=== PATIENT | female | born 1945 | race Caucasian/White ===

== ENCOUNTER 2020-03-25 08:46 | Outpatient (REF) | payer MEDICARE, SELFPAY | END 2020-03-25 08:47 | disposition home or self-care (01) | LOC: HO.HMGCLDS 08:46 | PROVIDERS: PCP Internal Medicine; Visit Provider Internal Medicine | DX: Z20.828 Contact with and (suspected) exposure to other viral communicable diseases (principal) | CPT/HCPCS: C9803; U0003 ==

== ENCOUNTER 2020-04-01 09:25 | Outpatient (REF) | payer MEDICARE, SELFPAY ==
--- NOTE | 2020-04-01 09:30 | MM_ITS ---
EXAMINATION: MM SCREENING DIGITAL BREAST TOMOSYNTHESIS, BILATERAL CLINICAL INFORMATION: Screening. Asymptomatic. The lifetime risk of breast cancer based on the Tyrer-Cuzick Model is 1.3%. COMPARISON: Mammography: March 09, 2019 and studies dating back to July 27, 2012 TECHNIQUE: Digital breast tomosynthesis is performed in both the craniocaudal and mediolateral oblique views along with computer-aided detection (CAD). Synthesized 2D images are generated from the tomosynthesis. FINDINGS: There are scattered areas of fibroglandular density (ACR BI-RADS breast composition Category b). There are no significant masses, abnormal calcifications, or other abnormalities. MM/MM tomosynthesis screening BI IMPRESSION: There are no significant changes from prior study. ASSESSMENT: BI-RADS 1: Negative RECOMMENDATION: Routine annual mammography screening. This patient's information was entered into a reminder system with a target due date for their next mammogram.
== END 2020-04-01 09:26 | disposition home or self-care (01) ==
LOC: HO.MAMMO 09:25
PROVIDERS: Visit Provider Internal Medicine Endocrinology, Diabetes & Metabolism
DX: Z12.31 Encounter for screening mammogram for malignant neoplasm of breast (principal)
CPT/HCPCS: 77063; 77067

== ENCOUNTER 2020-04-02 09:41 | Outpatient (REF) | payer MEDICARE, SELFPAY ==
--- NOTE | 2020-04-02 09:48 | MM_ITS ---
EXAMINATION: BONE DENSITOMETRY CLINICAL INDICATION: Age-related osteoporosis without current pathological fracture. COMPARISON: Previous BD dated 03/01/2019 and baseline BD dated 04/30/2009. This is the patient's baseline examination for the left forearm radius 33%. TECHNIQUE: Using a [employer] DXA System (software version: 13.1) manufactured by [employer], dual-energy x-ray absorptiometry was performed of the lumbar spine, left hip, and left forearm radius 33%. The images are of good technical quality. Summary results are attached. FINDINGS: AP SPINE L2-L3 (excluding L1 and L4): The data of L1-L4 has been changed to exclude the L1 and L4 vertebral bodies, because degenerative change at these levels may cause overestimation of lumbar spine density. Current: BMD 0.938 g/cm2, Z-score -0.5, T-score -2.2, osteopenia, 2.3% increase from previous, 9.3% increase from baseline (<5% change is not significant). Prior: BMD 0.917 g/cm2. Baseline: BMD 0.858 g/cm2. LEFT FEMUR, NECK: Current: BMD 0.784 g/cm2, Z-score 0.1, T-score -1.8, osteopenia. Prior: BMD 0.758 g/cm2. Baseline: BMD 0.675 g/cm2. LEFT FEMUR, TOTAL: Current: BMD 0.854 g/cm2, Z-score 0.5, T-score -1.2, osteopenia, 0.9% increase from previous, 9.3% increase from baseline (<5% change is not significant). Prior: BMD 0.846 g/cm2. Baseline: BMD 0.781 g/cm2. LEFT FOREARM RADIUS 33%: BMD 0.535 g/cm2, Z-score -1.5, T-score -3.9, osteoporosis. IDENTIFIED RISK FACTORS: Early menopause, secondary osteoporosis, hysterectomy, bilateral oophorectomy, history of fracture (adult), osteoporosis. HISTORY OF FRACTURE: Other. MEDICATIONS: Calcium supplements or multivitamin, vitamin D, bisphosphonates. MM/XR DEXA appendicular skeleton IMPRESSION: 1. DIAGNOSIS: Osteoporosis based on the lowest T-score value of -3.9 in the forearm radius 33% applying World Health Organization criteria. 2. 10-YEAR FRACTURE RISK PREDICTION, FRAX: Major osteoporotic fracture (clinical spine, forearm, hip or shoulder) 20.5%. Hip fracture 7.2%. 3. Treatment Recommendations: NOF guidelines recommend consideration for treatment in postmenopausal women and men age 50 and older presenting with the following: -A hip or vertebral (clinical or morphometric) fracture. -T-score less than or equal to -2.5 at the femoral neck or spine after appropriate evaluation to exclude secondary causes. -Low bone mass at the hip or spine and a 10-year fracture probability by FRAX of greater than or equal to 3% for hip fracture or greater than or equal to 20% for major osteoporotic fracture based on the [place] adapted WHO algorithm. 4. Other Recommendations: All treatment decisions require clinical judgment and consideration of individual patient factors, including patient preferences, comorbidities, previous drug use, risk factors not captured in the FRAX model (e.g. frailty, falls, vitamin D deficiency, increased bone turnover, interval significant decline in bone density) and possible under or overestimation of fracture risk by FRAX. Additional medical evaluation for secondary cause of low bone mineral density may be appropriate. FUTURE SCAN RECOMMENDATION: People with diagnosed cases of osteoporosis or at high risk for fracture should have regular bone mineral density tests. For patients eligible for Medicare, routine testing is allowed once every 2 years. The testing frequency can be increased to one year for patients who have rapidly progressing disease, those who are receiving or discontinuing medical therapy to restore bone mass, or have additional risk factors.
== END 2020-04-02 09:42 | disposition home or self-care (01) ==
LOC: HO.MAMMO 09:41
PROVIDERS: PCP Internal Medicine; Visit Provider Internal Medicine Endocrinology, Diabetes & Metabolism
DX: M81.0 Age-related osteoporosis without current pathological fracture (principal); Z78.0 Asymptomatic menopausal state; Z90.710 Acquired absence of both cervix and uterus; Z90.722 Acquired absence of ovaries, bilateral
CPT/HCPCS: 77081

== ENCOUNTER 2020-05-27 08:57 | Outpatient (REF) | payer MEDICARE, SELFPAY ==
[2020-05-27 12:02] LABS: Albumin Level 4.6 g/dL (3.5-5.0); Calcium 10.2 mg/dL (8.4-10.2)
[2020-05-27 12:32] LABS: Vitamin D 25-OH Total 51.3 ng/mL (>30)
[2020-05-30 16:42] LABS: N-Telopeptide 11 (see note); NTXCreaRU 51 mg/dL (20-275)
== END 2020-05-27 08:58 | disposition home or self-care (01) ==
LOC: HO.HMGCLDS 08:57
PROVIDERS: PCP Internal Medicine; Visit Provider Internal Medicine Endocrinology, Diabetes & Metabolism
DX: M81.0 Age-related osteoporosis without current pathological fracture (principal)
CPT/HCPCS: 36415; 82040; 82306; 82310; 82523

== ENCOUNTER → 2020-05-31 10:59 | Outpatient (BNVA) | payer MEDICARE, SELFPAY | PROVIDERS: PCP Internal Medicine; Referring Provider Internal Medicine; Visit Provider Internal Medicine Endocrinology, Diabetes & Metabolism | DX: M81.0 Age-related osteoporosis without current pathological fracture (principal); E55.9 Vitamin D deficiency, unspecified; Z79.899 Other long term (current) drug therapy | CPT/HCPCS: 99212 ==

== ENCOUNTER 2020-08-14 22:16 | Emergency (ER) | payer MEDICARE, SELFPAY ==
--- NOTE | ~2020-08-14 | CT_ITS ---
EXAMINATION: CT ABDOMEN AND PELVIS WITHOUT CONTRAST CLINICAL INFORMATION: Right flank pain COMPARISON: 03/01/2012 TECHNIQUE: Multidetector volumetric imaging was performed from the superior aspect of the liver through the pubic symphysis. Sagittal and coronal reformatted images were obtained on the technologist's workstation. This CT examination was performed using dose optimization techniques as appropriate, variously including the following: *Automated exposure control *Adjustment of mA and/or kV according to patient size (this includes techniques or standardized protocols for targeted exams where dose is matched to indication/reason for exam; i.e. extremities or head) *Use of iterative reconstruction technique DLP: 429 mGy-cm FINDINGS: LUNG BASES: The visualized lung bases are unremarkable. LIVER, GALLBLADDER, AND BILIARY TREE: The liver is normal in size, shape, and attenuation. No focal hepatic lesion or biliary ductal dilatation is present. Cholecystectomy. PANCREAS: Unremarkable. SPLEEN: Unremarkable. ADRENAL GLANDS: Unremarkable. KIDNEYS AND URETERS: The kidneys are normal in size, shape, and attenuation. There is mild right hydroureteronephrosis. 0.4 cm calculus at the right ureterovesicular junction. Nonobstructing bilateral renal calculi are also present. On the right at least 10 calculi are seen. The largest measures 0.7 cm at the lower pole of the right kidney, 13 cm from the posterior axillary line. BLADDER: Unremarkable. GASTROINTESTINAL TRACT: The stomach is unremarkable. Normal caliber small bowel. No obstruction. Colonic diverticulosis noted without diverticulitis. No free air or free fluid. ABDOMINAL WALL: No significant hernia is appreciated. LYMPH NODES: Normal. VASCULAR: Normal caliber aorta with moderate atherosclerotic calcification. PELVIC VISCERA: Uterus is not seen. No adnexal mass. OSSEOUS STRUCTURES: No acute or suspicious osseous abnormality. Degenerative changes of the spine. DISH. L1 vertebral body height loss appears chronic. CT/CT abdomen pelvis wo con IMPRESSION: Mild right hydroureteronephrosis with a 0.4 cm calculus at the ureterovesicular junction.
[2020-08-14 22:46] VITALS: BP 195/91; PULSE 80; RESP 18; TEMP 36.6; O2SAT 96; BMI 26.5
[2020-08-14 23:18] LABS: Glucose Urine UA NEG (NEG); Leukocyte Esterase Urine NEG (NEG); Nitrite Urine NEG (NEG); Specific Gravity - Urine <= 1.005 (1.005-1.025); Urine Blood 3+ (NEG); Urine Ketones NEG (NEG); Urine Protein NEG (NEG-TRACE)
[2020-08-14 23:19] LABS: Appearance Urine CLEAR; Color Urine YELLOW
[2020-08-14 23:23] LABS: RBC Urine 0-2 /HPF (0); Squamous Epithelial Cell Urine TRACE /LPF; WBC Urine 0-2 /HPF (0-4)
[2020-08-14 23:54] LABS: MANUAL DIFF FLAG NO
[2020-08-14 23:55] LABS: Basophils Absolute Auto 0.1 X10*3/uL (0.0-0.2); Basophils Percent Auto 1.1 % (0-2); Eosinophils Absolute Auto 0.4 X10*3/uL (0.0-0.4); Eosinophils Percent Auto 3.9 % (0-4); Hematocrit 49.1 % (37-47); Hemoglobin 16.7 g/dl (12.0-16.0); Imm Gran Abs Auto 0.05 X10*3/uL (0.00-0.03); Imm Gran Pct Auto 0.5 % (0.0-0.4); Lymphocytes Absolute Auto 2.1 X10*3/uL (1.2-4.9); Lymphocytes Percent Auto 19.7 % (20-40); Mean Corpuscular Hemoglobin 30.8 pg (27.0-33.0); Mean Corpuscular Volume 90.6 fL (80-98); Mean Platelet Volume 9.5 fL (9.4-12.3); Monocytes Absolute Auto 0.9 X10*3/uL (0.1-1.2); Monocytes Percent Auto 8.3 % (2-11); Neutrophils Percent Auto 66.5 % (45-73); Platelet Count 235 X10*3/uL (160-400); Red Blood Count 5.42 X10*6/uL (4.20-5.50); Red Cell Distribution Width 13.3 % (11.0-16.0); White Blood Count 10.6 X10*3/uL (4.8-10.8)
[2020-08-15 00:28] LABS: Alanine Aminotransferase 16 U/L (0-31); Albumin Level 4.6 g/dL (3.5-5.0); Alkaline Phosphatase 64 U/L (39-117); Anion Gap 12 (12-20); Aspartate Amino Transferase 16 U/L (5-31); Bilirubin Total 0.7 mg/dL (0.0-1.0); Blood Urea Nitrogen 26 mg/dL (9-16); Calcium 9.8 mg/dL (8.4-10.2); Carbon Dioxide 29 mmol/L (22-29); Chloride 105 mmol/L (96-108); Estimated Glomerular Filt Rate 42; Glucose Random 95 mg/dL (60-115); Potassium 3.7 mmol/L (3.3-5.1); Sodium 142 mmol/L (135-145); Total Protein 7.6 g/dL (6.5-8.0)
--- NOTE | 2020-08-15 01:16 | ED.FEMALEGU ---
HPI - Female Genitourinary General Chief complaint: Urogenital-Female Stated complaint: Flank pain Time Seen by Provider: 08/15/20 01:07 Source: patient Mode of arrival: ambulatory Limitations: no limitations History of Present Illness HPI Narrative: 75-year-old female who presents emergency department for evaluation of right flank pain. She states the pain came on suddenly at 6:30 p.m.. The pain was sharp/pressure-like pain. The pain did radiate to her right groin area. She states the pain was 9/10 at its worst. The patient had associated nausea with no vomiting. She states she had the urge to urinate but found it difficult to urinate. She denied dysuria. This is her 1st episode of this type of pain. At the time of my evaluation, the patient had no treatment and she stated that her pain was 2/10. The patient has not had a COVID-19 infection but she states she has received her 2 vaccination with the last vaccination received in May of 2020. Related Data Home Medications Medication Instructions Recorded Confirmed aspirin 81 mg tablet,delayed 81 mg PO DAILY 05/31/20 05/31/20 release atorvastatin 10 mg tablet 10 mg PO DAILY 05/31/20 05/31/20 docusate sodium 100 mg capsule 100 mg PO DAILY 05/31/20 05/31/20 vitamin A-vit C-vit E-zinc-Cu 2 tab PO BID 05/31/20 05/31/20 tablet Previous Rx's Medication Instructions Recorded alendronate 70 mg tablet 70 mg PO QWEEK 90 Days #13 tab 05/31/20 calcium citrate 500 mg PO BID 90 Days #360 tab 05/31/20 cholecalciferol (vitamin D3) 50 50 mcg PO DAILY 90 Days #90 cap 05/31/20 mcg (2,000 unit) capsule metoprolol tartrate 25 mg tablet 12.5 mg PO BID #90 tab 07/05/20 Allergies Allergy/AdvReac Type Severity Reaction Status Date / Time No Known Allergies Allergy Unverified 01/11/20 15:26 [No Known Allergies*] N.K.D.A. Allergy Unknown Uncoded 11/24/19 00:00 Review of Systems Review of Systems: Yes all other systems are reviewed and are negative PMFSH Past Medical History [facility] Narrative: The patient denies tobacco, alcohol and drug use. Medical History Osteoporosis Vitamin D deficiency Surgical History History of AAA (abdominal aortic aneurysm) repair History of appendectomy History of surgery Hx of cholecystectomy Hx of colonoscopy Hx of hysterectomy Family History Family History (Updated 05/31/20 @ 11:03 by HOMAR Duvall) Father HTN (hypertension) Mother HTN (hypertension) Social History Social History Alcohol intake: unknown Smoking Status: Former smoker Use of substances other than those prescribed or required for medical reasons: Unknown Advance Directives: No Advance Directives Information Provided: Yes Physical Exam Vital Signs: Vital Signs: Last Vital Signs Temp 97.9 F 08/14/20 22:46 Pulse 76 08/15/20 01:54 Resp 15 08/15/20 01:54 BP 182/68 H 08/15/20 01:54 Pulse Ox 95 08/15/20 01:54 Body Mass Index 26.5 Const: General: cooperative and healthy appearing Orientation/consciousness: oriented to person and oriented to place Limitations: no limitations HENMT: Head: Yes normal to inspection, Yes normocephalic and Yes atraumatic Ears: external ears normal General nose exam: Normal external nose present Face and sinus: Yes normal facial exam Mouth: Normal oral and palatal mucosa present Throat: Yes posterior oropharynx normal Eyes: Periorbital: periorbital findings normal Eyelids: Yes eyelids normal Conjunctivae: conjunctivae normal Sclerae: sclerae normal Corneas: corneas normal Pupils: Equal, round and reactive pupils present Direct Ophthalmoscopy: normal light reflex Neck: Neck: Yes full ROM, Yes no lymphadenopathy, Yes no meningeal signs, Yes trachea midline and Yes supple Chest: Chest palpation & inspection: normal inspection of the chest and normal palpation of entire chest wall Resp: Effort & Inspection: normal respiratory effort and able to speak in complete sentences Auscultation: clear to auscultation bilaterally Cardio: Rate: regular rate Rhythm: regular rhythm Heart sounds: S1 normal heart sound present, S2 normal heart sound present and no murmurs GI: Inspection: Yes normal to inspection Palpation (GI): Soft to palpation, nontender, no guarding, not rigid and No hepatosplenomegaly present : General: Yes no CVA tenderness Back/Spine/Pelvis: Back: no CVA tenderness Cervical Spine: normal cervical lordosis Thoracic/Lumbar Spine: thoracic and lumbar spine normal to inspection Skin: Lesions: no lesions Rashes: no rashes Wounds: no wounds Neuro: General: oriented to person, oriented to place and no meningeal signs Cranial nerves: Yes CN's II-XII intact bilaterally and Yes Equal, round and reactive pupils present Cognition (Neuro): normal cognition Motor exam (neuro): 5/5 motor strength present throughout Extrem: General: Yes normal to inspection and Yes full ROM Psych: Appearance: well kempt Mental Status: mental status grossly normal Speech and movement: Normal speech and movement present Affect: normal affect Attitude: cooperative Thought process: Normal thought process present Thought content: Normal thought content present Course Course Course Narrative: 75-year-old female who presents emergency department for evaluation of sudden onset of right flank pain with pain radiating to her right groin area associated with difficulty urinating. The pain was initially 9/10 at its worse and by the time I evaluated her the pain improved to 2/10. Her physical examination was unremarkable. Laboratory evaluation revealed 3+ blood in the urinalysis with 0-2 rbc's and 0-2 WBCs. Patient's presentation is consistent with renal colic. I did order a CT scan of the abdomen pelvis without IV or oral contrast to further evaluate the patient's pain. 0205: The patient's CT scan of the abdomen pelvis without IV contrast revealed a 4 mm right ureteral stone at the UVJ with mild right hydronephrosis. I did discuss this finding with the patient and the patient's [id number]. Patient was given ibuprofen 400 mg orally. She was advised to take ibuprofen and Tylenol for pain. She was given printed and verbal instructions on straining her urine and on kidney stones. She will need to follow-up with the on-call urologist for further evaluation and she was advised return to the emergency department for pain became worse or she develops any new symptoms that are concerning to her. MDM - Female Genitourinary Lab Data Result diagrams: 08/14/20 23:49 08/14/20 23:49 Labs: Lab Results 08/14/20 08/14/20 08/14/20 Range/Units 23:08 23:49 23:49 WBC 10.6 (4.8-10.8) X10*3/uL RBC 5.42 (4.20-5.50) X10*6/uL Hgb 16.7 H (12.0-16.0) g/dl Hct 49.1 H (37-47) % MCV 90.6 (80-98) fL MCH 30.8 (27.0-33.0) pg MCHC 34.0 (31.0-35.0) g/dl RDW 13.3 (11.0-16.0) % Plt Count 235 (160-400) X10*3/uL MPV 9.5 (9.4-12.3) fL Immature Gran % (Auto) 0.5 H (0.0-0.4) % Neut % (Auto) 66.5 (45-73) % Lymph % (Auto) 19.7 L (20-40) % [place] % (Auto) 8.3 (2-11) % Eos % (Auto) 3.9 (0-4) % Baso % (Auto) 1.1 (0-2) % Lymph # (Auto) 2.1 (1.2-4.9) X10*3/uL [place] # (Auto) 0.9 (0.1-1.2) X10*3/uL Eos # (Auto) 0.4 (0.0-0.4) X10*3/uL Baso # (Auto) 0.1 (0.0-0.2) X10*3/uL Abs Immat Gran (auto) 0.05 H (0.00-0.03) X10*3/uL Absolute Neuts (auto) 7.0 (2.0-8.3) X10*3/uL Absolute Nucleated RBC 0.000 (0.0-0.012) X10*3/uL Nucleated RBC % (auto) 0.0 (0.0-0.2) /100WBC Hold Blue Top SEE NOTE Sodium (135-145) mmol/L Potassium (3.3-5.1) mmol/L Chloride (96-108) mmol/L Carbon Dioxide (22-29) mmol/L Anion Gap (12-20) BUN (9-16) mg/dL Creatinine (0.5-1.4) mg/dL Estim Creat Clear Calc Estimated GFR Random Glucose (60-115) mg/dL Calcium (8.4-10.2) mg/dL Total Bilirubin (0.0-1.0) mg/dL AST (5-31) U/L ALT (0-31) U/L Alkaline Phosphatase (39-117) U/L Total Protein (6.5-8.0) g/dL Albumin (3.5-5.0) g/dL Urine Color YELLOW Urine Appearance CLEAR Urine pH 6.0 (5.0-8.0) Ur Specific Cotton <= 1.005 (1.005-1.025) Urine Protein NEG (NEG-TRACE) MG/DL Urine Glucose (UA) NEG (NEG) MG/DL Urine Ketones NEG (NEG) MG/DL Urine Blood 3+ H (NEG) Urine Nitrite NEG (NEG) Ur Leukocyte Esterase NEG (NEG) Urine RBC 0-2 (0) /HPF Urine WBC 0-2 (0-4) /HPF Ur Squamous Epith Cells TRACE /LPF Urine Bacteria NONE /LPF 08/14/20 Range/Units 23:49 WBC (4.8-10.8) X10*3/uL RBC (4.20-5.50) X10*6/uL Hgb (12.0-16.0) g/dl Hct (37-47) % MCV (80-98) fL MCH (27.0-33.0) pg MCHC (31.0-35.0) g/dl RDW (11.0-16.0) % Plt Count (160-400) X10*3/uL MPV (9.4-12.3) fL Immature Gran % (Auto) (0.0-0.4) % Neut % (Auto) (45-73) % Lymph % (Auto) (20-40) % [place] % (Auto) (2-11) % Eos % (Auto) (0-4) % Baso % (Auto) (0-2) % Lymph # (Auto) (1.2-4.9) X10*3/uL [place] # (Auto) (0.1-1.2) X10*3/uL Eos # (Auto) (0.0-0.4) X10*3/uL Baso # (Auto) (0.0-0.2) X10*3/uL Abs Immat Gran (auto) (0.00-0.03) X10*3/uL Absolute Neuts (auto) (2.0-8.3) X10*3/uL Absolute Nucleated RBC (0.0-0.012) X10*3/uL Nucleated RBC % (auto) (0.0-0.2) /100WBC Hold Blue Top Sodium 142 (135-145) mmol/L Potassium 3.7 (3.3-5.1) mmol/L Chloride 105 (96-108) mmol/L Carbon Dioxide 29 (22-29) mmol/L Anion Gap 12 (12-20) BUN 26 H (9-16) mg/dL Creatinine 1.23 (0.5-1.4) mg/dL Estim Creat Clear Calc 36.0 Estimated GFR 42 Random Glucose 95 (60-115) mg/dL Calcium 9.8 (8.4-10.2) mg/dL Total Bilirubin 0.7 (0.0-1.0) mg/dL AST 16 (5-31) U/L ALT 16 (0-31) U/L Alkaline Phosphatase 64 (39-117) U/L Total Protein 7.6 (6.5-8.0) g/dL Albumin 4.6 (3.5-5.0) g/dL Urine Color Urine Appearance Urine pH (5.0-8.0) Ur Specific [place] (1.005-1.025) Urine Protein (NEG-TRACE) MG/DL Urine Glucose (UA) (NEG) MG/DL Urine Ketones (NEG) MG/DL Urine Blood (NEG) Urine Nitrite (NEG) Ur Leukocyte Esterase (NEG) Urine RBC (0) /HPF Urine WBC (0-4) /HPF Ur Squamous Epith Cells /LPF Urine Bacteria /LPF Discharge Plan Discharge Clinical Impression: Right distal ureteral calculus, Renal colic on right side Patient Disposition: Home, Self-Care Instructions: How to Strain Your Urine (ED), Kidney Stones (ED) Additional Instructions: Your laboratory evaluation was normal. You had some red blood cells in your urine but no evidence for urine infection The CT scan of your abdomen pelvis without IV contrast revealed a right 4 mm ureteral stone at the UVJ (you have a kidney stone in the tube that connects the kidney to the bladder and the stone is right at the junction where the tube connects to the bladder). Take ibuprofen 200 mg pills, 2 pills every 6 hours as needed for pain. Take Tylenol (acetaminophen) 500 mg pills, 2 pills every 4 to 6 hours as needed for pain. Strain your urine. Follow the printed kidney stone instructions. Follow-up with our on-call urologist and 7-10 days for re-evaluation Please return to the emergency department if your symptoms get worse or if you develop any symptoms that are concerning to you. Prescriptions: No Action metoprolol tartrate 25 mg tablet 12.5 mg PO BID Qty: 90 RF: 0 atorvastatin 10 mg tablet 10 mg PO DAILY RF: 0 docusate sodium [Colace] 100 mg capsule 100 mg PO DAILY RF: 0 vitamin A-vit C-vit E-zinc-Cu Tablet 2 tab PO BID RF: 0 aspirin [Adult Low Dose Aspirin] 81 mg tablet,delayed release (DR/EC) 81 mg PO DAILY RF: 0 alendronate 70 mg tablet 70 mg PO QWEEK 90 Days Qty: 13 RF: 3 calcium citrate 250 mg calcium tablet 500 mg PO BID 90 Days Qty: 360 RF: 3 cholecalciferol (vitamin D3) 50 mcg (2,000 unit) capsule 50 mcg PO DAILY 90 Days Qty: 90 RF: 3 Referrals: Murtaza Beckman MD [Physician] - 1 week (4 mm right ureteral stone at the UVJ, mild right hydronephrosis)
[2020-08-15 01:54] VITALS: BP 182/68; PULSE 76; RESP 15; O2SAT 95
[2020-08-15] MEDS: Ibuprofen 400 MG TABLET PO (02:09)
== END 2020-08-15 02:44 | disposition home or self-care (01) ==
PROVIDERS: Emergency Provider Emergency Medicine Emergency Medical Services; PCP Internal Medicine
DX: N20.2 Calculus of kidney with calculus of ureter (principal); R10.9 Unspecified abdominal pain; Z79.899 Other long term (current) drug therapy; Z79.82 Long term (current) use of aspirin; Z87.891 Personal history of nicotine dependence
CPT/HCPCS: 36415; 74176; 80053; 81001; 85025; 99284; 99285

== ENCOUNTER 2021-04-14 08:05 | Outpatient (REF) | payer MEDICARE, SELFPAY ==
--- NOTE | ~2021-04-14 | MM_ITS ---
EXAMINATION: MM SCREENING DIGITAL BREAST TOMOSYNTHESIS, BILATERAL CLINICAL INFORMATION: Screening. Asymptomatic. The lifetime risk of breast cancer based on the Tyrer-Cuzick Model is 2%. COMPARISON: Mammography: 04/01/2020, 03/09/2019, 03/01/2019, 02/28/2018 TECHNIQUE: Digital breast tomosynthesis is performed in both the craniocaudal and mediolateral oblique views along with computer-aided detection (CAD). Synthesized 2D images are generated from the tomosynthesis. FINDINGS: There are scattered areas of fibroglandular density (ACR BI-RADS breast composition Category b). There are no significant masses, abnormal calcifications, or other abnormalities. Parenchymal pattern is similar to prior studies. There is no developing density. The axilla and skin contours are unremarkable. No significant changes. MM/MM tomosynthesis screening BI IMPRESSION: No mammographic evidence of malignancy. ASSESSMENT: BI-RADS 1: Negative RECOMMENDATION: Routine annual mammography screening. This patient's information was entered into a reminder system with a target due date for their next mammogram.
[2021-04-14 11:57] LABS: Alanine Aminotransferase 19 U/L (0-31); Anion Gap 12 (12-20); Aspartate Amino Transferase 16 U/L (5-31); Blood Urea Nitrogen 24 mg/dL (9-16); Calcium 10.5 mg/dL (8.4-10.2); Carbon Dioxide 31 mmol/L (22-29); Chloride 105 mmol/L (96-108); Cholesterol 216 mg/dL; Estimated Glomerular Filt Rate 51; Glucose Fasting 103 mg/dL (60-99); HDL Cholesterol 38 mg/dL; LDL Cholesterol Calculated 101 mg/dl; Potassium 4.3 mmol/L (3.3-5.1); Sodium 144 mmol/L (135-145); Triglycerides 386 mg/dL
[2021-04-14 12:13] LABS: Vitamin D 25-OH Total 34.9 ng/mL (>30)
== END 2021-04-14 08:06 | disposition home or self-care (01) ==
LOC: HO.MAMMO 08:05
PROVIDERS: PCP Internal Medicine; Visit Provider Internal Medicine
DX: Z12.31 Encounter for screening mammogram for malignant neoplasm of breast (principal); M81.0 Age-related osteoporosis without current pathological fracture; I10 Essential (primary) hypertension; E55.9 Vitamin D deficiency, unspecified; Z79.83 Long term (current) use of bisphosphonates; Z51.81 Encounter for therapeutic drug level monitoring
CPT/HCPCS: 36415; 77063; 77067; 80048; 80061; 82306; 84450; 84460

== ENCOUNTER 2021-09-04 07:45 | Outpatient (REF) | payer MEDICARE, SELFPAY ==
[2021-09-04 12:10] LABS: Alanine Aminotransferase 22 U/L (0-31); Anion Gap 15 (12-20); Aspartate Amino Transferase 18 U/L (5-31); Blood Urea Nitrogen 24 mg/dL (9-16); Calcium 9.7 mg/dL (8.4-10.2); Carbon Dioxide 27 mmol/L (22-29); Chloride 106 mmol/L (96-108); Cholesterol 185 mg/dL; Estimated Glomerular Filt Rate 60; Glucose Fasting 97 mg/dL (60-99); HDL Cholesterol 34 mg/dL; LDL Cholesterol Calculated 72 mg/dl; Potassium 3.9 mmol/L (3.3-5.1); Sodium 144 mmol/L (135-145); Triglycerides 397 mg/dL
[2021-09-04 12:17] LABS: Vitamin D 25-OH Total 37.5 ng/mL (>30)
== END 2021-09-04 07:46 | disposition home or self-care (01) ==
LOC: HO.HMGCLDS 07:45
PROVIDERS: Visit Provider Internal Medicine
DX: I10 Essential (primary) hypertension (principal); I71.2 Thoracic aortic aneurysm, without rupture; E78.1 Pure hyperglyceridemia; E55.9 Vitamin D deficiency, unspecified; M81.0 Age-related osteoporosis without current pathological fracture
CPT/HCPCS: 36415; 80048; 80061; 82306; 84450; 84460

== ENCOUNTER → 2021-10-17 13:26 | Outpatient (BNVA) | payer MEDICARE, SELFPAY | PROVIDERS: PCP Internal Medicine; Visit Provider Internal Medicine Endocrinology, Diabetes & Metabolism | DX: M81.0 Age-related osteoporosis without current pathological fracture (principal); Z79.899 Other long term (current) drug therapy | CPT/HCPCS: 99212 ==

== ENCOUNTER 2021-10-30 16:49 | Outpatient (REF) | payer MEDICARE, SELFPAY | END 2021-10-30 16:50 | disposition home or self-care (01) | LOC: HO.LNP 16:49 | DX: R35.0 Frequency of micturition (principal) | CPT/HCPCS: 87086 ==

== ENCOUNTER 2021-10-31 16:41 | Outpatient (REF) | payer MEDICARE, SELFPAY ==
[2021-10-31 16:45] LABS: Urine Cytology See Pathology rpt
== END 2021-10-31 16:42 | disposition home or self-care (01) ==
LOC: HO.LNP 16:41
PROVIDERS: Visit Provider Internal Medicine
DX: R31.29 Other microscopic hematuria (principal); N20.0 Calculus of kidney
CPT/HCPCS: 88112

== ENCOUNTER 2021-12-18 11:52 | Outpatient (REF) | payer MEDICARE, SELFPAY ==
--- NOTE | ~2021-12-18 | US_ITS ---
EXAMINATION: US RETROPERITONEAL LIMITED (RENAL ONLY) CLINICAL INFORMATION: Microscopic hematuria. COMPARISON: CT abdomen pelvis 08/15/2020. Ultrasound renals only 11/07/2015. Ultrasound abdomen 02/22/2012. TECHNIQUE: Real-time imaging of the kidneys. FINDINGS: RIGHT KIDNEY: 11.3 x 4.6 x 5 cm (SAG x AP x TRV). The kidney is normal in size, contour, and echogenicity. Renal cortical thickness is normal. There are multiple right renal stones. Largest stones measure 8 mm in the upper pole, 6 mm in the midpole and 5 mm in the lower pole. There is a 7 mm cyst in the lower pole. No hydronephrosis. LEFT KIDNEY: 10.3 x 4.9 x 4.6 cm (SAG x AP x TRV). The kidney is normal in size, contour, and echogenicity. Renal cortical thickness is normal. There are multiple left renal stones. Largest measure 5 mm in the upper pole and midpole and 4 mm in the lower pole. There are 2 left renal cysts measuring approximately 1 cm. No hydronephrosis. US/US renal BI IMPRESSION: Multiple bilateral renal stones.
== END 2021-12-18 11:53 | disposition home or self-care (01) ==
LOC: HO.US 11:52
PROVIDERS: Visit Provider Internal Medicine
DX: N20.0 Calculus of kidney (principal); R31.29 Other microscopic hematuria
CPT/HCPCS: 76775

== ENCOUNTER 2022-02-02 07:21 | Outpatient (REF) | payer MEDICARE, SELFPAY ==
[2022-02-02 11:52] LABS: Alanine Aminotransferase 17 U/L (0-31); Anion Gap 15 (12-20); Aspartate Amino Transferase 15 U/L (5-31); Blood Urea Nitrogen 21 mg/dL (9-16); Calcium 9.5 mg/dL (8.4-10.2); Carbon Dioxide 29 mmol/L (22-29); Chloride 105 mmol/L (96-108); Cholesterol 189 mg/dL; Estimated Glomerular Filt Rate 53; Glucose Fasting 95 mg/dL (60-99); HDL Cholesterol 40 mg/dL; LDL Cholesterol Calculated 100 mg/dl; Potassium 3.8 mmol/L (3.3-5.1); Sodium 145 mmol/L (135-145); Triglycerides 248 mg/dL
[2022-02-02 11:58] LABS: Vitamin D 25-OH Total 36.7 ng/mL (>30)
== END 2022-02-02 07:22 | disposition home or self-care (01) ==
LOC: HO.HMGCLDS 07:21
PROVIDERS: PCP Internal Medicine; Visit Provider Internal Medicine
DX: N95.9 Unspecified menopausal and perimenopausal disorder (principal); M81.0 Age-related osteoporosis without current pathological fracture; E55.9 Vitamin D deficiency, unspecified; I10 Essential (primary) hypertension; Z86.73 Personal history of transient ischemic attack (TIA), and cerebral infarction without residual deficits; E78.1 Pure hyperglyceridemia
CPT/HCPCS: 36415; 80048; 80061; 82306; 84450; 84460

== ENCOUNTER 2022-02-11 11:59 | Outpatient (REF) | payer MEDICARE, SELFPAY ==
[2022-02-11 13:05] LABS: Creatinine, mg/dL 69.09
[2022-02-11 13:47] LABS: Creatinine, 24Hr Urine 0.9 G/Day (1.0-2.0); Total Volume 24 Hour Urine 1325 mL
[2022-02-13 17:06] LABS: Calcium, 24 Hr Urine 248 mg/24 h; Calcium/Creatinine Ratio 283 mg/g creat (30-275); Creatinine 24Hr Urine 0.87 g/24 h (0.50-2.15)
== END 2022-02-11 12:00 | disposition home or self-care (01) ==
LOC: HO.LNP 11:59
PROVIDERS: Visit Provider Internal Medicine Endocrinology, Diabetes & Metabolism
DX: M81.0 Age-related osteoporosis without current pathological fracture (principal)
CPT/HCPCS: 82340; 82570; 86335

== ENCOUNTER 2022-03-23 10:40 | Outpatient (REF) | payer MEDICARE, SELFPAY ==
[2022-03-23 16:54] LABS: Urine Cytology See Pathology rpt
== END 2022-03-23 10:41 | disposition home or self-care (01) ==
LOC: HO.LNP 10:40
PROVIDERS: PCP Internal Medicine; Visit Provider Urology
DX: R31.29 Other microscopic hematuria (principal); N20.0 Calculus of kidney; F17.210 Nicotine dependence, cigarettes, uncomplicated; Z79.899 Other long term (current) drug therapy
CPT/HCPCS: 51798; 88112; 99202

== ENCOUNTER 2022-04-28 10:10 | Outpatient (REF) | payer MEDICARE, SELFPAY ==
--- NOTE | ~2022-04-28 | MM_ITS ---
EXAMINATION: BONE DENSITOMETRY CLINICAL INDICATION: Screening for osteoporosis. COMPARISON: Previous BD dated 04/02/2020 and baseline BD dated 04/30/2009. TECHNIQUE: Using a [employer] DXA System (software version: 13.1) manufactured by [employer], dual-energy x-ray absorptiometry was performed of the lumbar spine, left hip and left forearm radius 33%. The images are of good technical quality. Summary results are attached. FINDINGS: AP SPINE L1-L4: Current: BMD 1.115 g/cm2, Z-score 1.2, T-score -0.5, normal, 8.6% increase from previous, 23.3% increase from baseline (<5% change is not significant). Prior: BMD 1.027 g/cm2. Baseline: BMD 0.904 g/cm2. LEFT FEMUR, NECK: Current: BMD 0.660 g/cm2, Z-score -0.7, T-score -2.7, osteoporosis. Prior: BMD 0.784 g/cm2. Baseline: BMD 0.675 g/cm2. LEFT FEMUR, TOTAL: Current: BMD 0.717 g/cm2, Z-score -0.5, T-score -2.3, osteopenia, 16.0% decrease from previous, 8.2% decrease from baseline (<5% change is not significant). Prior: BMD 0.854 g/cm2. Baseline: BMD 0.781 g/cm2. LEFT FOREARM RADIUS 33%: BMD 0.512 g/cm2, Z-score -1.6, T-score -4.2, osteoporosis, 4.3% decrease from baseline (<5% change is not significant). IDENTIFIED RISK FACTORS: Osteoporosis. Current smoker. Low calcium intake. Secondary osteoporosis (early menopause). Hysterectomy. Bilateral oophorectomy. HISTORY OF FRACTURE: None listed. MEDICATIONS: Calcium supplement or multivitamin. Vitamin D. MM/XR DEXA appendicular skeleton IMPRESSION: 1. DIAGNOSIS: Osteoporosis based on the lowest T-score value of -4.2 in the left forearm radius 33% applying World Health Organization criteria. 2. 10-YEAR FRACTURE RISK PREDICTION, FRAX: According to the guidelines, FRAX calculation should only be performed on patients in the osteopenia bone density category. Therefore, FRAX was not performed on this patient.? 3. Treatment Recommendations: NOF guidelines recommend consideration for treatment in postmenopausal women and men age 50 and older presenting with the following: -A hip or vertebral (clinical or morphometric) fracture. -T-score less than or equal to -2.5 at the femoral neck or spine after appropriate evaluation to exclude secondary causes. -Low bone mass at the hip or spine and a 10-year fracture probability by FRAX of greater than or equal to 3% for hip fracture or greater than or equal to 20% for major osteoporotic fracture based on the [place] adapted WHO algorithm. 4. Other Recommendations: All treatment decisions require clinical judgment and consideration of individual patient factors, including patient preferences, comorbidities, previous drug use, risk factors not captured in the FRAX model (e.g. frailty, falls, vitamin D deficiency, increased bone turnover, interval significant decline in bone density) and possible under or overestimation of fracture risk by FRAX. Additional medical evaluation for secondary cause of low bone mineral density may be appropriate. FUTURE SCAN RECOMMENDATION: People with diagnosed cases of osteoporosis or at high risk for fracture should have regular bone mineral density tests. For patients eligible for Medicare, routine testing is allowed once every 2 years. The testing frequency can be increased to one year for patients who have rapidly progressing disease, those who are receiving or discontinuing medical therapy to restore bone mass, or have additional risk factors.
--- NOTE | ~2022-04-28 | MM_ITS ---
EXAMINATION: MM SCREENING DIGITAL BREAST TOMOSYNTHESIS, BILATERAL CLINICAL INFORMATION: Screening. Asymptomatic. The lifetime risk of breast cancer based on the Tyrer-Cuzick Model is 2%. COMPARISON: Mammography: 04/14/2021, 04/01/2020, 03/09/2019, 03/01/2019; right breast ultrasound 03/09/2019 TECHNIQUE: Digital breast tomosynthesis is performed in both the craniocaudal and mediolateral oblique views along with computer-aided detection (CAD). Synthesized 2D images are generated from the tomosynthesis. FINDINGS: There are scattered areas of fibroglandular density (ACR BI-RADS breast composition Category b). There are no significant masses, abnormal calcifications, or other abnormalities. Parenchymal pattern is similar to prior studies. There is no developing density or architectural abnormality. The axilla and skin contours are unremarkable. No significant changes. MM/MM tomosynthesis screening BI IMPRESSION: No mammographic evidence of malignancy. ASSESSMENT: BI-RADS 1: Negative RECOMMENDATION: Routine annual mammography screening. This patient's information was entered into a reminder system with a target due date for their next mammogram.
== END 2022-04-28 10:11 | disposition home or self-care (01) ==
LOC: HO.MAMMO 10:10
PROVIDERS: PCP Internal Medicine; Visit Provider Internal Medicine Endocrinology, Diabetes & Metabolism
DX: Z12.31 Encounter for screening mammogram for malignant neoplasm of breast (principal); Z13.820 Encounter for screening for osteoporosis; Z78.0 Asymptomatic menopausal state
CPT/HCPCS: 77063; 77067; 77081

== ENCOUNTER 2022-05-01 10:49 | Outpatient (REF) | payer MEDICARE, SELFPAY ==
--- NOTE | ~2022-05-01 | MM_ITS ---
EXAMINATION: DXA VERTEBRAL FRACTURE ASSESSMENT CLINICAL INFORMATION: Osteoporosis COMPARISON: Bone densitometry 04/28/2022, CT abdomen and pelvis 08/15/2020.. TECHNIQUE: Your patient completed a vertebral fracture assessment using the [employer] DXA system (software version: 14.10) manufactured by [employer]. The following summarizes the results of our evaluation. LVA MORPHOMETRY RESULTS: Evaluation of the thoracolumbar spine from T4 through L4 was performed. Image quality is good. There is mild superior endplate depression at L1 and borderline superior endplate depression L4. The lowest Z score is -11.8 at T11. The next lowest Z score is -1.3 at L4. The highest Z score is +2.1 at T6. MM/XR DEXA vertrebral fracture IMPRESSION: -Mild superior endplate depression L1 and L4. -Lowest Z-score -11.8 at T11; and next lowest -1.3 at L4. RECOMMENDATIONS: All patients should ensure an adequate intake of dietary calcium (1200 mg/d) and vitamin D (400-800 IU/d). Effective therapies are now available in the form of bisphosphonates, (alendronate, ibandronate, risedronate, zoledronic acid), antiresorptive agents (calcitonin, estrogen + progesterone and raloxifene) and anabolic agent (teriparatide). These therapies may reduce vertebral, hip and other fractures by up to 50%. FOLLOW-UP: People with diagnosed cases of osteoporosis, high risk for fracture, or current vertebral fractures should have regular bone mineral density tests. The frequency of follow-up vertebral fracture assessment tests should be determined based on clinical circumstances. Often times, testing frequency will be based on rapidly progressing disease, or the addition or elimination of therapy to treat the disease.
[2022-05-01 12:49] LABS: Phosphorus 3.6 mg/dL (2.7-4.5)
[2022-05-01 13:08] LABS: Free T4 (Free Thyroxine) 1.03 ng/dL (0.71-1.85); Thyroid Stimulating Hormone 2.25 uIU/mL (0.32-4.0)
[2022-05-05 00:34] LABS: Prot Elec - Albumin 4.5 g/dL (3.8-4.8); Prot Elec - Alpha1 0.3 g/dL (0.2-0.3); Prot Elec - Alpha2 0.8 g/dL (0.5-0.9); Prot Elec - Beta 1 0.5 g/dL (0.4-0.6); Prot Elec - Beta 2 0.3 g/dL (0.2-0.5); Prot Elec - Total Protein 7.4 g/dL (6.1-8.1)
== END 2022-05-01 10:50 | disposition home or self-care (01) ==
LOC: HO.MAMMO 10:49
PROVIDERS: PCP Internal Medicine; Visit Provider Internal Medicine Endocrinology, Diabetes & Metabolism
DX: Z13.820 Encounter for screening for osteoporosis (principal); M81.0 Age-related osteoporosis without current pathological fracture; Z78.0 Asymptomatic menopausal state; R53.83 Other fatigue; R53.81 Other malaise
CPT/HCPCS: 36415; 77086; 84100; 84165; 84439; 84443

== ENCOUNTER → 2022-05-05 12:27 | Outpatient (BNVA) | payer MEDICARE, SELFPAY | PROVIDERS: PCP Internal Medicine; Visit Provider Internal Medicine Endocrinology, Diabetes & Metabolism | DX: M81.0 Age-related osteoporosis without current pathological fracture (principal) | CPT/HCPCS: 99212 ==

== ENCOUNTER 2022-07-06 07:35 | Outpatient (REF) | payer MEDICARE, SELFPAY ==
[2022-07-06 12:43] LABS: Alanine Aminotransferase 21 U/L (0-31); Anion Gap 16 (12-20); Aspartate Amino Transferase 17 U/L (5-31); Blood Urea Nitrogen 22 mg/dL (9-16); Calcium 9.6 mg/dL (8.4-10.2); Carbon Dioxide 29 mmol/L (22-29); Chloride 106 mmol/L (96-108); Cholesterol 205 mg/dL; Estimated Glomerular Filt Rate 51; Glucose Fasting 96 mg/dL (60-99); HDL Cholesterol 41 mg/dL; LDL Cholesterol Calculated 93 mg/dl; Potassium 4.5 mmol/L (3.3-5.1); Sodium 146 mmol/L (135-145); Triglycerides 355 mg/dL; Vitamin D 25-OH Total 35.6 ng/mL (>30)
== END 2022-07-06 07:36 | disposition home or self-care (01) ==
LOC: HO.HMGCLDS 07:35
PROVIDERS: PCP Internal Medicine; Visit Provider Internal Medicine
DX: E55.9 Vitamin D deficiency, unspecified (principal); E78.1 Pure hyperglyceridemia; M81.0 Age-related osteoporosis without current pathological fracture; I10 Essential (primary) hypertension
CPT/HCPCS: 36415; 80048; 80061; 82306; 84450; 84460

== ENCOUNTER 2022-07-08 11:21 | Outpatient (AMB) | payer MEDICARE, SELFPAY ==
--- NOTE | 2022-07-08 12:20 | A.OFFPC_ITS ---
Vital Signs 07/08/22 12:23 Height 5 ft 3 in Weight 157 lb 8 oz BMI 27.8 BP 120/70 Blood Pressure Location Lt brachial Position Sitting Pulse 72 Pulse Source Pulse Oximeter Pulse Oximetry (%) 93 Oxygen Delivery Method Room Air Intake Visit Reasons: 5 month follow up ffup lipids, htn Intake Note: Pt is here for her five months f/u appointment on lipids and hypertension. Allergies No Known Allergies [No Known Allergies*] Allergy (Verified 10/06/22 13:09) Medication List - Last Reconciled 11/20/22 by Hue Frost MD alendronate 70 mg PO QWEEK aspirin (Adult Low Dose Aspirin) 81 mg PO DAILY atorvastatin 10 mg PO DAILY calcium citrate 500 mg (2 x 250 mg calcium) PO BID 90 days cephalexin 500 mg PO QID cholecalciferol (vitamin D3) 25 mcg PO DAILY docusate sodium (Colace) 100 mg PO DAILY metoprolol tartrate 12.5 mg (1/2 x 25 mg) PO BID omega-3 acid ethyl esters (Lovaza) 2 caps PO DAILY 90 days vit C,O-Rd-acawe-lutein-zeaxan 250-90-40-1 mg (PreserVision AREDS-2) 1 tab PO BID Tobacco use date assessed: 07/08/22 Fall risk assessment: No Falls in past year Last assessed Fall Risk: 07/08/22 HPI 5 month follow up ffup lipids, htn HPI Details 77-year-old lady here today for follow-up on her hyperlipidemia and hypertension. She is currently taking atorvastatin 10 mg daily and Lovaza, as well as metoprolol tartrate 12.5 mg twice a day. Blood pressure today is now within normal limits, had recent fasting labs which showed elevated triglycerides and normal LDL cholesterol, normal fasting blood sugar levels. She has been feeling well with no complaints at present time. 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 Hypertriglyceridemia Microscopic hematuria Osteoporosis Pneumothorax, left Recurrent kidney stones Right rib fracture Rupture of ovary Sigmoid diverticulitis Vitamin D deficiency Surgical History History of AAA (abdominal aortic aneurysm) repair History of appendectomy History of surgery Hx of cholecystectomy Hx of colonoscopy Hx of hysterectomy Family History Father HTN (hypertension) Mother HTN (hypertension) Social History Household Members: None Housing: Other Housing Other:: Senior housing Alcohol intake: unknown Patient Tobacco Use Status: Current everyday Tobacco user Tobacco use type: Cigarette Cigarettes Per Day: 8 e-Cigarette/Vaping Use: Never Used service: No Current occupational status: retired Cognitive needs: No Hearing needs: No Vision needs: Yes Questionnaire PHQ-9 Over the last 2 weeks, how often have you been bothered by any of the following problems? 1. Little interest or pleasure in doing things: not at all 2. Feeling down, depressed, or hopeless: not at all 3. Trouble falling or staying asleep, or sleeping too much: not at all 4. Feeling tired or having little energy: not at all 5. Poor appetite or overeating: not at all 6. Feeling bad about yourself - or that you are a failure or have let yourself or your family down: not at all 7. Trouble concentrating on things, such as reading the newspaper or watching television: not at all 8. Moving or speaking so slowly that other people could have noticed. Or the opposite - being so fidgety or restless that you have been moving around a lot more than usual: not at all 9. Thoughts that you would be better off or of hurting yourself in some way: not at all Total score: 0 Depression Screening Interpretation: Negative 71097 - PHQ-9 Billing: Yes Source: Developed by Drs. Marco Rain, Fabiana Ortega, Uziel Light and colleagues, with an educational taty from [employer]. Thrive Questionnaire Declines Thrive assessment: No Date Thrive assessed: 07/08/22 I am a: Patient What is your living situation today?: I have a steady place to live Within the past 12 months, did the food you bought not last and you didn't have the money to get more?: Never true Within the past 12 months, did you worry whether your food would run out before you got money to buy more?: Never true Do you have trouble paying for medicines?: No Do you have trouble getting transportation to medical appointments?: No Do you have trouble paying your heating and electricity bill?: No Do you have trouble taking care of your child, family member or friend?: No Do you have trouble with day-to-day activities such as bathing, preparing meals, shopping, managing finances, etc.?: No Are you currently unemployed and looking for a job?: No Are you interested in more education?: No AUDIT C Alcohol Use Questionnaire (AUDIT-C) 1. How often do you have a drink containing alcohol?: Never 3. How often do you have six or more drinks on one occasion?: Never Total Score: 0 ELYSSA-7 AMB Questionnaire ELYSSA-7 Date ELYSSA - 7 assessed: 07/08/22 Feeling nervous, anxious, or on edge: 0 = Not at all Not being able to stop or control worryin = Not at all Worrying too much about different things: 0 = Not at all Trouble relaxin = Not at all Being so restless that it is hard to sit still: 0 = Not at all Becoming easily annoyed or irritable: 0 = Not at all Feeling afraid as if something awful might happen: 0 = Not at all Total ELYSSA-7 score (0-4 normal; 5-9 mild; 10-14 moderate; 15-21 severe): 0 Source: Developed by Drs. Marco Rain, Fabiana Ortega, Uziel Light and colleagues, with an educational taty from [employer]. ELYSSA-7 Assessment Billing ELYSSA-7 Assessment Tool: ELYSSA-7 Assessment 85804 Review of Systems Const Denies fatigue, Denies frequent falls, Denies headache(s), Denies lethargy, Denies malaise and Denies weakness Eyes Reports blurry vision (Right more than the left), Denies diplopia, Denies dry eyes, Denies loss of peripheral vision and Reports requires corrective lenses ENT Denies dysphagia, Denies dizziness, Denies dry mouth, Denies headache(s) and Denies nasal congestion Card Denies chest pain, Denies rapid heart rate, Denies irregular heart rhythm, Denies leg edema, Denies lightheadedness, Denies palpitations and Denies dyspnea Resp Denies chest congestion, Denies cough and Denies dyspnea GI Denies abdominal pain, Denies melena, Denies bloating, Denies hematochezia, Denies change in bowel habits, Denies constipation, Denies dysphagia, Denies early satiety and Denies nausea Musc Denies back pain, Denies arthralgias, Denies muscle cramps, Denies muscle weakness and Denies tingling Skin/Breast Denies rash Neuro Denies burning sensations, Denies dizziness, Denies frequent falls, Denies headache(s), Denies tingling, Denies paresthesias, Denies tremor(s) and Denies weakness Endo Denies fatigue, Denies polydipsia, Denies polyuria and Denies palpitations Physical exam (Primary Care) Vital Signs: Last Vital Signs Pulse 72 07/08/22 12:23 BP 120/70 07/08/22 12:23 Pulse Ox 93 07/08/22 12:23 Oxygen Delivery Method Room Air 07/08/22 12:23 BMI result Body Mass Index 27.8 Tobacco/Smoking Status: Tobacco use Status Tobacco use date assessed 07/08/22 07/08/22 12:25 Patient Tobacco Use Status Current everyday Tobacco 07/08/22 12:25 Tobacco use type Cigarette 07/08/22 12:25 e-Cigarette/Vaping Use Never Used 07/08/22 12:25 PHQ-9: PHQ-9 Score PHQ-9: Total score 0 11/20/22 14:53 Depression Screening Interpretation: Negative Thrive Assessment: Date of Thrive Assessment Date Thrive assessed 07/08/22 07/08/22 12:25 Const Other: Alert oriented x3, no acute cardiorespiratory distress, normal gait [facility] General nose exam: Normal external nose present Face and sinus: Yes face symmetric Mouth: Normal oral and palatal mucosa present, oropharynx normal and moist mucous membranes Eyes General: appearance normal, both eyes and all related structures Neck Neck: Yes full ROM, Yes no lymphadenopathy and Yes supple Thyroid: Thyroid normal Resp Effort & Inspection: normal respiratory effort and able to speak in complete sentences Auscultation: clear to auscultation bilaterally Cardio Other: S1-S2 present regular rate and rhythm Jugular venous distension: no JVD GI Palpation (GI): Soft to palpation, nontender, no guarding and no masses Extrem General: Yes full ROM, Yes no joint enlargement, Yes no pedal edema, Yes no calf tenderness and Yes normal gait Results Reviewed Results Reviewed: Laboratory Tests 05/01/22 11:25 TSH 2.25 Free T4 1.03 ENTERED: 07/06/220737 RAHEL GARY: ORDERED: Met Prof Fast, AST, ALT, Lipid Panel, Vitamin D 25-OH Test Result Flag Reference Site Sodium 146 H 135-145 mmol/L Potassium 4.5 3.3-5.1 mmol/L CL 106 96-108 mmol/L CO2 29 22-29 mmol/L Gap 16 12-20 BUN 22 H 9-16 mg/dL Creat 1.05 0.5-1.4 mg/dL EGFR 51 NOTE: For -Marshallese individuals, multiply the result by 1.210. Chronic Kidney Disease: Estimated GFR < 60 mL/min/1.73m2 Severe Kidney Disease: Estimated GFR < 15 mL/min/1.73m2 FBS 96 60-99 mg/dL CA 9.6 8.4-10.2 mg/dL AST (GOT) 17 5-31 U/L ALT (GPT) 21 0-31 U/L Triglyceride 355 mg/dL Desirable Triglyceride: less than 150 mg/dL Borderline High Triglyceride 150-199 mg/dL High Triglyceride: 200-499 mg/dL Very High Triglyceride: greater than or equal to 5OO mg/dL Chol 205 mg/dL Desirable Cholesterol: less than 200 mg/dL Borderline High Cholesterol: 200-239 mg/dL High Cholesterol: greater than 239 mg/dL LDL Calculated 93 mg/dl Desirable LDL: less than 100 mg/dL Near Optimal/Above Optimal LDL: 110-129 mg/dL Borderline High LDL: 130-159 mg/dL High LDL: 160-189 mg/dL Very High LDL: greater than or equal to 190 mg/dL HDL 41 mg/dL Desirable HDL: greater than 40 mg/dL Note: This HDL assay may give artificially low results in patients with liver disease. Vit D 25-OH Tot 35.6 >30 ng/mL Health Based Reference Values* < 20 ng/mL Deficient 20-30 ng/mL Insufficient > 30 ng/mL Sufficient Assessment and Plan Assessment & Plan (1) Essential hypertension: Code(s): I10 - Essential (primary) hypertension Plan: Blood pressure at goal of less than 130/80. Continue with current medication. Reinforced importance of following a low sodium diet, getting regular exercise, and lowering stress levels. (2) Hypertriglyceridemia: Code(s): E78.1 - Pure hyperglyceridemia Plan: Reviewed recent fasting lipid profile with patient with triglycerides still with normal LDL cholesterol . Continue with atorvastatin 10 mg daily and [place] 3 fatty acids laments , in addition to adherence to low-cholesterol diet and regular exercise, at least 30 minutes 3 to 4 times a week. Advised patient to make healthy food choices, eat more fruits, vegetables, whole grains, wild caught fish and low-fat dairy. Limit amount of meat and fried or fatty food products, as well as processed foods and fast foods. Follow-up scheduled with repeat fasting lipid panel in 6 months. Orders: Orders Alanine Aminotransferase 01/25/23 I10 - Essential (primary) hypertension, E78.1 - Pure hyperglyceridemia Aspartate Amino Transferase 01/25/23 I10 - Essential (primary) hypertension, E78.1 - Pure hyperglyceridemia Basic Metabolic Panel Fasting 01/25/23 I10 - Essential (primary) hypertension, E78.1 - Pure hyperglyceridemia Lipid Panel 01/25/23 I10 - Essential (primary) hypertension, E78.1 - Pure hyperglyceridemia Coding Level of Care Code Est Pt Level 3 (44733) Diagnoses Essential hypertension I10 Hypertriglyceridemia E78.1 Additional Codes ELYSSA-7 Assessment Billing - ELYSSA-7 Assessment Tool: ELYSSA-7 Assessment 76902 ([id number])
[2022-07-08 12:23] VITALS: BP 120/70; PULSE 72; O2SAT 93; BMI 27.8
== END 2022-07-08 14:07 | disposition home or self-care (01) ==
LOC: HO.HMGC 11:21
PROVIDERS: PCP Internal Medicine; Visit Provider Internal Medicine
DX: I10 Essential (primary) hypertension (principal); E78.1 Pure hyperglyceridemia
CPT/HCPCS: 99213

== ENCOUNTER 2022-10-06 12:50 | Outpatient (AMB) | payer MEDICARE, SELFPAY ==
--- NOTE | 2022-10-06 13:03 | MHC.PC.OV ---
Intake Visit Reasons: [facility] 10/03/22 UTI Allergies No Known Allergies [No Known Allergies*] Allergy (Verified 08/10/23 01:35) Medication List - Last Reconciled 08/11/23 by Hue Frost MD alendronate 70 mg PO QWEEK atorvastatin 10 mg PO DAILY calcium citrate 500 mg (2 x 250 mg calcium) PO BID 90 days cholecalciferol (vitamin D3) 25 mcg PO DAILY docusate sodium (Colace) 100 mg PO DAILY metoprolol tartrate 12.5 mg (1/2 x 25 mg) PO BID vit C,F-Jm-hggqe-lutein-zeaxan 250-90-40-1 mg (PreserVision AREDS-2) 1 tab PO BID Tobacco use date assessed: 07/08/22 HPI [facility] 10/03/22 UTI HPI Details 78-year-old lady here today for follow-up after a recent ER visit, where she was diagnosed to have urinary tract infection. She was placed on cephalexin and is currently asymptomatic, denies any further urinary symptoms or altered mentation. 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 Essential hypertension Aneurysm of aortic arch Vitamin D deficiency Osteoporosis Surgical History History of AAA (abdominal aortic aneurysm) repair Hx of colonoscopy Hx of hysterectomy History of surgery Hx of cholecystectomy History of appendectomy Family History Father HTN (hypertension) Mother HTN (hypertension) Social History Household Members: None Housing: Other Housing Other:: Senior housing Alcohol intake: unknown Patient Tobacco Use Status: Current everyday Tobacco user Tobacco use type: Cigarette Cigarettes Per Day: 8 e-Cigarette/Vaping Use: Never Used service: No Current occupational status: retired Cognitive needs: No Hearing needs: No Vision needs: Yes Questionnaire Thrive Questionnaire Date Thrive assessed: 07/08/22 ELYSSA-7 AMB Questionnaire ELYSSA-7 Date ELYSSA - 7 assessed: 07/08/22 Source: Developed by Drs. Marco Rain, Fabiana Ortega, Uziel Light and colleagues, with an educational taty from [employer]. Review of Systems Const Denies body aches, Denies chills, Denies fever(s), Denies frequent falls and Denies headache(s) ENT Denies dizziness and Denies headache(s) Card Denies chest pain, Denies rapid heart rate, Denies irregular heart rhythm, Denies lightheadedness and Denies dyspnea Resp Denies chest congestion, Denies cough and Denies dyspnea GI Denies abdominal pain, Denies change in bowel habits and Denies nausea Reports no additional complaints Musc Denies back pain Neuro Denies dizziness, Denies frequent falls and Denies headache(s) Physical exam (Primary Care) Tobacco/Smoking Status: Tobacco use Status Tobacco use date assessed 07/08/22 10/06/22 13:05 Patient Tobacco Use Status Current everyday Tobacco 10/06/22 13:05 Tobacco use type Cigarette 10/06/22 13:05 e-Cigarette/Vaping Use Never Used 10/06/22 13:05 Thrive Assessment: Date of Thrive Assessment Date Thrive assessed 07/08/22 10/06/22 13:05 Const Other: Alert oriented x3, no acute distress noted ambulatory normal gait Orientation/consciousness: patient oriented x3 HENMT Mouth: Normal oral and palatal mucosa present and moist mucous membranes Neck Neck: Yes full ROM and Yes no lymphadenopathy Resp Auscultation: clear to auscultation bilaterally Cardio Other: S1-S2 present regular rate and rhythm GI Palpation (GI): Soft to palpation, nontender and no guarding General: Yes no CVA tenderness Back/Spine/Pelvis Back: no CVA tenderness Neuro General: patient oriented x3, tone normal, moves all extremities and no focal motor deficits Extrem General: Yes full ROM, Yes no joint enlargement, Yes no pedal edema and Yes normal gait Assessment and Plan Assessment & Plan (1) History of UTI: Code(s): Z87.440 - Personal history of urinary (tract) infections Plan: Urine culture done at [facility] showed presence of Klebsiella pneumoniae, sensitive to cefepime and cefazolin, patient already completed taking prescription for cephalexin given at the ER. At present she is currently asymptomatic with no urinary symptoms, no alteration in mental status reported. Coding Level of Care Code Est Pt Level 3 (21538) Diagnoses History of UTI Z87.440
== END 2022-10-06 13:24 | disposition left against medical advice (07) ==
LOC: HO.HMGC 12:50
PROVIDERS: PCP Internal Medicine; Visit Provider Internal Medicine
DX: Z87.440 Personal history of urinary (tract) infections (principal)
CPT/HCPCS: 99213

== ENCOUNTER 2023-02-08 10:45 | Outpatient (AMB) | payer MEDICARE, SELFPAY ==
[2023-02-08 11:04] VITALS: BP 130/82; PULSE 66; O2SAT 97; BMI 25.4
--- NOTE | 2023-02-08 11:04 | AM.OFFVISMDC ---
Intake Vital Signs 02/08/23 11:04 Height 5 ft 3 in Weight 143 lb 2 oz BMI 25.4 BP 130/82 Blood Pressure Location Rt brachial Position Sitting Pulse 66 Pulse Source Pulse Oximeter Pulse Oximetry (%) 97 Oxygen Delivery Method Room Air Intake Visit Reasons: MAXX G0439 Intake Note: pt will be making appts for her flu and covid vaccines Allergies No Known Allergies [No Known Allergies*] Allergy (Verified 02/08/23 11:32) Medication List - Last Reconciled 02/08/23 by Hue Frost MD alendronate 70 mg PO QWEEK atorvastatin 10 mg PO DAILY calcium citrate 500 mg (2 x 250 mg calcium) PO BID 90 days cholecalciferol (vitamin D3) 25 mcg PO DAILY docusate sodium (Colace) 100 mg PO DAILY metoprolol tartrate 12.5 mg (1/2 x 25 mg) PO BID vit C,C-Gs-eflku-lutein-zeaxan 250-90-40-1 mg (PreserVision AREDS-2) 1 tab PO BID HPI MAXX G0439 HPI Details MAXX ? 77-year-old lady here today for her subsequent wellness visit . She is up-to-date with her screening mammogram done 04/28/2022 together her bone density scan. Patient currently on alendronate for her osteoporosis, followed by Dr. Jiménez. She had a normal fasting lipid panel and fasting glucose checked 07/06/2022 , with normal findings. Up-to-date with her screening colonoscopy done October [id number] with removal of 3 tubular adenoma polyps, due again for recheck in 2023. She is up-to-date with her pneumonia patient and Shingrix vaccine as well as Tdap, has an appointment for COVID booster and her flu shot already scheduled. ? Medical / Social History Reviewed? Past Medical History ?Yes . ? [place] of Care / Care Team list updated ?Yes . ? Surgical/Hospitalization History ?Yes . ? Current Medications (including OTC and supplements) ?Yes . ? Family History ?Yes . ? Tobacco Control form ?Yes . ? AUDIT-C (Alcohol use) form ?Yes . ? Illicit drug use in Social History ?Yes . ? Current diagnosis of depression? ?No ? Appropriate PHQ2/PHQ9 completed ?Yes . ? Data entered by ?Culturist and reviewed by provider ? Fall Risk ? Fall History? Have you had any falls with injury in the past year? ?No . ? Have you had two or more falls in the past year? ?No . ? Fall Risk Assessment: ?No falls in the past year . ? HRA filled out by the patient, reviewed by Provider and scanned. ? SWV ? Balance? Romberg ?Yes . ? Tandem walk ?Yes . ? Walk and Turn ?Yes . ? Rise from sit to stand ?Yes . ?Vision? Corrective lens ?Yes ? Vision screen sees Dr. Denise Mckenna?Hearing? Whisper test ?pass . ?Written Plan?Completed. See Patient Documents.? 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 Essential hypertension Aneurysm of aortic arch Vitamin D deficiency Osteoporosis Surgical History History of AAA (abdominal aortic aneurysm) repair Hx of colonoscopy Hx of hysterectomy History of surgery Hx of cholecystectomy History of appendectomy Family History Father HTN (hypertension) Mother HTN (hypertension) Social History Household Members: None Housing: Other Housing Other:: Senior housing Alcohol intake: unknown Patient Tobacco Use Status: Current everyday Tobacco user Tobacco use type: Cigarette Cigarettes Per Day: 8 e-Cigarette/Vaping Use: Never Used service: No Current occupational status: retired Cognitive needs: No Hearing needs: No Vision needs: Yes Questionnaire Medicare Wellness Checkup [age] What gender do you identify with?: female During the past 4 weeks, how much have you been bothered by emotional problems such as feeling anxious, depressed, irritable, sad or downhearted, and blue?: not at all During the past 4 weeks, has your physical & emotional health limited your social activities with family, friends, neighbors, or groups?: not at all During the past 4 weeks, how much bodily pain have you generally had?: very mild pain During the past 4 weeks, was someone available to help you if you needed & wanted help?: yes, as much as I wanted During the past 4 weeks, what was the hardest physical activity you could do for at least 2 minutes?: heavy Can you get to places out of walking distance without help? (For eg., can you travel alone on buses, taxis or drive your car?): Yes Can you go shopping for groceries or clothes without someone's help?: Yes Can you prepare your own meals?: Yes Can you do your housework without help?: Yes Because of any health problems, do you need the help of another person with your personal care needs such as eating, bathing, dressing or getting around the house?: No Can you handle your own money without help?: Yes During the past 4 weeks, how would you rate your health in general?: very good During the past 4 weeks how have things been going for you?: pretty well Are you having difficulties driving your car?: no Do you always fasten your seat belt when you are in a car?: yes, usually During past 4 weeks, have you been bothered by the following: never: Falling or dizzy when standing up, Sexual problems?, Trouble eating well?, Teeth or denture problems?, Problems using the telephone? and Tiredness or fatigue? Have you fallen 2 or more times in the past year?: No Are you afraid of falling?: No Are you a smoker?: yes, but I'm not ready to quit During the past 4 weeks, how many drinks of wine, beer, or other alcoholic beverages did you have?: no alcohol at all Do you exercise for about 20 minutes 3 or more times a week?: yes, some of the time Have you been given information to help with the following?: no: Hazards in your house that might hurt you? and no: Keeping track of your medications? How often do you have trouble taking medicines the way you have been told to take them?: I always take medicine as prescribed How confident are you that you can control & manage most of your health problems?: very confident What is your race?: White Mini Mental State Exam (MMSE) Orientation What is the (year) (season) (date) (day) (month)?: year (2022) and season (fall) Where are we (state) (county) (town or city) (hospital) (floor)?: state ([place]), county ([place]), town or city ([place]) and hospital/clinic ([facility]) Score Score: 6 Activity of Daily Living Bathing - sponge bath, tub bath or shower: receives no assistance (gets in/out by self, if usual bathing means Dressing - getting clothes from closets & drawers, including inner/outer garments & fasteners.: gets clothes & gets completely dressed without help Toileting - going to the 'toilet room' for urine/bowel elimination & cleaning self/arranging clothes: goes to toilet room, cleans self, arranges clothes without help Transfer: moves in & out of bed and chair without help (may use support object) Continence: has occasional 'accidents' Feeding: feeds self without help Total Score: 0 Information obtained from: patient Using telephone: independent Traveling: independent Shopping: independent Preparing meals: independent Housework: independent Taking medicine: independent Managing money: independent PHQ-9 Over the last 2 weeks, how often have you been bothered by any of the following problems? 1. Little interest or pleasure in doing things: not at all 2. Feeling down, depressed, or hopeless: not at all 3. Trouble falling or staying asleep, or sleeping too much: not at all 4. Feeling tired or having little energy: not at all 5. Poor appetite or overeating: not at all 6. Feeling bad about yourself - or that you are a failure or have let yourself or your family down: not at all 7. Trouble concentrating on things, such as reading the newspaper or watching television: not at all 8. Moving or speaking so slowly that other people could have noticed. Or the opposite - being so fidgety or restless that you have been moving around a lot more than usual: not at all 9. Thoughts that you would be better off or of hurting yourself in some way: not at all Total score: 0 Depression Screening Interpretation: Negative Depression Screening Done: Yes 72063 - PHQ-9 Billing: Yes Source: Developed by Drs. Marco Rain, Fabiana Ortega, Uziel Light and colleagues, with an educational taty from [employer]. Physical Exam Vital Signs: Last Vital Signs Pulse 66 02/08/23 11:04 BP 130/82 02/08/23 11:04 Pulse Ox 97 02/08/23 11:04 Oxygen Delivery Method Room Air 02/08/23 11:04 BMI result Body Mass Index 25.4 Assessment & Plan Assessment & Plan (1) Encounter for subsequent annual wellness visit (AWV) in Medicare patient: Code(s): Z00.00 - Encounter for general adult medical examination without abnormal findings Plan: Medical wellness checklist reviewed, discussed with patient and updated, copy given to her. Reminded to get her COVID booster and flu shot (2) Osteoporosis: Code(s): M81.0 - Age-related osteoporosis without current pathological fracture Qualifiers: Osteoporosis type: age-related Presence of current pathological fracture: without current pathological fracture Qualified Code(s): M81.0 - Age-related osteoporosis without current pathological fracture Plan: Currently on alendronate, followed by Dr. Jiménez (3) Hypertriglyceridemia: Code(s): E78.1 - Pure hyperglyceridemia Plan: Stressed importance of adhering to low-cholesterol diet, getting regular exercise, may start taking ijbs-kgl-hxaldfj fish oil supplement at least 2 daily (4) Nicotine dependence: Code(s): F17.200 - Nicotine dependence, unspecified, uncomplicated Qualifiers: Nicotine product type: cigarettes Substance use status: uncomplicated Qualified Code(s): F17.210 - Nicotine dependence, cigarettes, uncomplicated Plan: Patient strongly advised to stop smoking, as smoking damages blood vessels, degenerative of joints and spine, damage to lungs and heart., predisposes to developing certain cancers like lung, breast, bladder, colon. Recommended to try decreasing cigarette use by 1-2 cigarettes a day. Advised to monitor what triggers are for smoking so that this can be discussed on the next office visit. We can discuss different options to quit smoking when ready. (5) Essential hypertension: Code(s): I10 - Essential (primary) hypertension Plan: Blood pressure at goal of less than 130/80. Continue with current medication. Reinforced importance of following a low sodium diet, getting regular exercise, and lowering stress levels. (6) Aneurysm of aortic arch: Comment: Status post surgery, ff'd by Dr Brewer Code(s): I71.2 - Thoracic aortic aneurysm, without rupture Qualifiers: Presence of rupture: without rupture Qualified Code(s): I71.22 - Aneurysm of the aortic arch, without rupture Plan: Followed by Dr. Brewer (7) Advanced directives, counseling/discussion: Code(s): Z71.89 - Other specified counseling Plan: Initiated the conversation about Advanced Directives. Advanced Directives help patients prepare for current and future decisions about their medical treatment and place of care. Discussed with patient that it is a process where a patients current condition and prognosis are reviewed, their wishes for information regarding their illness are elicited, and likely medical dilemmas are presented and options discussed. MOLST already completed, healthcare proxy done today. These forms can be amended as needed, reviewed yearly and make changes as needed (8) Smoker unmotivated to quit: Code(s): F17.200 - Nicotine dependence, unspecified, uncomplicated Plan: Patient strongly advised to stop smoking, as smoking damages blood vessels, degenerative of joints and spine, damage to lungs and heart., predisposes to developing certain cancers like lung, breast, bladder, colon. Recommended to try decreasing cigarette use by 1-2 cigarettes a day. Advised to monitor what triggers are for smoking so that this can be discussed on the next office visit. We can discuss different options to quit smoking when ready. Orders: Orders Liver Panel 06/25/23 E78.1 - Pure hyperglyceridemia Alanine Aminotransferase 06/25/23 E78.1 - Pure hyperglyceridemia Aspartate Amino Transferase 06/25/23 E78.1 - Pure hyperglyceridemia Basic Metabolic Panel Fasting 06/25/23 I10 - Essential (primary) hypertension Quality Reporting (2019) Depression/Bipolar (159/160/161/177) PHQ-9: Total score: 0 Coding Level of Care Code Medicare Subsequent (G0439) Diagnoses Encounter for subsequent annual wellness visit (AWV) in Medicare patient Z00.00 Age-related osteoporosis without current pathological fracture M81.0 Osteoporosis type: age-related Presence of current pathological fracture: without current pathological fracture Hypertriglyceridemia E78.1 Cigarette nicotine dependence without complication F17.210 Nicotine product type: cigarettes Substance use status: uncomplicated Essential hypertension I10 Aneurysm of aortic arch without rupture I71.22 Presence of rupture: without rupture Advanced directives, counseling/discussion Z71.89 Smoker unmotivated to quit F17.200 CPT Codes Advance Care Planning - Time spent: 16-45 minutes ([id number]) Advance Care Planning Advance Care Planning discussion: Completed/Scanned Date of discussion: 02/08/23 Who was present: Patient Forms completed: Health Care Proxy and MOLST (Already on file) Time spent: 16-45 minutes Actual minutes spent: 16
== END 2023-02-08 12:15 | disposition home or self-care (01) ==
PROVIDERS: Visit Provider Internal Medicine
DX: Z00.00 Encounter for general adult medical examination without abnormal findings (principal); M81.0 Age-related osteoporosis without current pathological fracture; E78.1 Pure hyperglyceridemia; I71.22 Aneurysm of the aortic arch, without rupture; F17.210 Nicotine dependence, cigarettes, uncomplicated; I10 Essential (primary) hypertension; Z71.89 Other specified counseling; F17.200 Nicotine dependence, unspecified, uncomplicated
CPT/HCPCS: 99497; G0439

== ENCOUNTER 2023-05-04 10:18 | Outpatient (REF) | payer MEDICARE, SELFPAY | END 2023-05-04 10:19 | disposition home or self-care (01) | LOC: HO.MAMMO 10:18 | PROVIDERS: PCP Internal Medicine; Visit Provider Internal Medicine | DX: Z12.31 Encounter for screening mammogram for malignant neoplasm of breast (principal) | CPT/HCPCS: 77063; 77067 ==

== ENCOUNTER → 2023-05-04 10:30 | Outpatient (BNV) | payer MEDICARE, SELFPAY | PROVIDERS: PCP Internal Medicine; Visit Provider Radiology Diagnostic Radiology | DX: Z12.31 Encounter for screening mammogram for malignant neoplasm of breast (principal) | CPT/HCPCS: 77063; 77067 ==

== ENCOUNTER 2023-08-04 07:46 | Outpatient (REF) | payer MEDICARE, SELFPAY ==
[2023-08-04 10:55] LABS: Alanine Aminotransferase 26 U/L (0-31); Aspartate Amino Transferase 18 U/L (5-31)
[2023-08-04 10:58] LABS: Alanine Aminotransferase 27 U/L (0-31); Albumin Level 4.4 g/dL (3.5-5.0); Alkaline Phosphatase 84 U/L (39-117); Anion Gap 13 (12-20); Aspartate Amino Transferase 18 U/L (5-31); Bilirubin Direct 0.2 mg/dL (0.0-0.5); Bilirubin Total 0.8 mg/dL (0.0-1.0); Blood Urea Nitrogen 26 mg/dL (9-16); Calcium 9.4 mg/dL (8.4-10.2); Carbon Dioxide 29 mmol/L (22-29); Chloride 105 mmol/L (96-108); Estimated Glomerular Filt Rate 52; Glucose Fasting 94 mg/dL (60-99); Potassium 3.9 mmol/L (3.3-5.1); Sodium 143 mmol/L (135-145); Total Protein 7.8 g/dL (6.5-8.0)
== END 2023-08-04 07:47 | disposition home or self-care (01) ==
LOC: HO.HMGCLDS 07:46
PROVIDERS: PCP Internal Medicine; Visit Provider Internal Medicine
DX: E78.1 Pure hyperglyceridemia (principal); I10 Essential (primary) hypertension
CPT/HCPCS: 36415; 80048; 80076; 84450; 84460

== ENCOUNTER 2023-08-09 11:31 | Outpatient (AMB) | payer MEDICARE, SELFPAY ==
[2023-08-09 01:33] VITALS: BP 130/80
[2023-08-09 11:45] VITALS: BP 140/70; PULSE 67; O2SAT 97; BMI 26.7
--- NOTE | 2023-08-09 11:45 | A.OFFPC_ITS ---
Vital Signs 08/09/23 01:33 08/09/23 11:45 08/09/23 11:55 Height 5 ft 3 in Weight 151 lb BMI 26.7 BP 130/80 140/70 H 130/80 Blood Pressure Location Rt brachial Rt brachial Position Sitting Sitting Pulse 67 Pulse Source Pulse Oximeter Pulse Oximetry (%) 97 Oxygen Delivery Method Room Air Intake Visit Reasons: 6 month follow up Intake Note: Pt is here today for her 6 month f/u Allergies No Known Allergies [No Known Allergies*] Allergy (Verified 08/10/23 01:35) Medication List - Last Reconciled 08/10/23 by Hue Frost MD alendronate 70 mg PO QWEEK atorvastatin 10 mg PO DAILY calcium citrate 500 mg (2 x 250 mg calcium) PO BID 90 days cholecalciferol (vitamin D3) 25 mcg PO DAILY docusate sodium (Colace) 100 mg PO DAILY metoprolol tartrate 12.5 mg (1/2 x 25 mg) PO BID vit C,Q-Th-fmtmh-lutein-zeaxan 250-90-40-1 mg (PreserVision AREDS-2) 1 tab PO BID Tobacco use date assessed: 08/09/23 Fall risk assessment: No Falls in past year Last assessed Fall Risk: 08/09/23 Dental Screening Dental Screen Date: 08/09/23 Did you have a dental visit in the last 12 months?: No Was dental information given to patient?: Patient has dentist HPI 6 month follow up HPI Details 78-year-old lady here today for follow-u p on her hypertension and hyperlipidemia. She is currently taking metoprolol tartrate 12.5 mg twice a day and atorvastatin 10 mg daily. Patient had recent fasting labs done which showed normal electrolytes, mildly decreased renal function, normal liver enzymes and fasting glucose. However her fasting lipid panel was not drawn , even though order was placed.. She is currently followed by Dr. Jiménez for her osteoporosis currently on alendronate, takes calcium and vitamin-D 3 supplements. She stays active, still drives, lives in her own home and does all her housework. She is due for a repeat colonoscopy screening. Has had adenomatous polyps from colon removed on last screening done by Dr. Acosta in 2019. Denies any abdominal pain, no abnormal weight loss, no blood in stool or melena. She also would like to have a nodular mass that has been increasing in size on left upper arm removed. 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 Essential hypertension Aneurysm of aortic arch Vitamin D deficiency Osteoporosis Surgical History History of AAA (abdominal aortic aneurysm) repair Hx of colonoscopy Hx of hysterectomy History of surgery Hx of cholecystectomy History of appendectomy Family History Father HTN (hypertension) Mother HTN (hypertension) Social History Household Members: None Housing: Other Housing Other:: Senior housing Alcohol intake: unknown Patient Tobacco Use Status: Current everyday Tobacco user Tobacco use type: Cigarette Cigarettes Per Day: 8 e-Cigarette/Vaping Use: Never Used service: No Current occupational status: retired Cognitive needs: No Hearing needs: No Vision needs: Yes Questionnaire PHQ-9 Over the last 2 weeks, how often have you been bothered by any of the following problems? 1. Little interest or pleasure in doing things: not at all 2. Feeling down, depressed, or hopeless: not at all 3. Trouble falling or staying asleep, or sleeping too much: not at all 4. Feeling tired or having little energy: not at all 5. Poor appetite or overeating: not at all 6. Feeling bad about yourself - or that you are a failure or have let yourself or your family down: not at all 7. Trouble concentrating on things, such as reading the newspaper or watching television: not at all 8. Moving or speaking so slowly that other people could have noticed. Or the opposite - being so fidgety or restless that you have been moving around a lot more than usual: not at all 9. Thoughts that you would be better off or of hurting yourself in some way: not at all Total score: 0 Depression Screening Interpretation: Negative Depression Screening Done: Yes 67025 - PHQ-9 Billing: Yes Source: Developed by Drs. Marco Rain, Fabiana Ortega, Uziel Light and colleagues, with an educational taty from [employer]. Thrive Questionnaire Date Thrive assessed: 08/09/23 I am a: Patient What is your living situation today?: I have a steady place to live Within the past 12 months, did the food you bought not last and you didn't have the money to get more?: Never true Within the past 12 months, did you worry whether your food would run out before you got money to buy more?: Never true Do you have trouble paying for medicines?: No Do you have trouble getting transportation to medical appointments?: No Do you have trouble paying your heating and electricity bill?: No Do you have trouble taking care of your child, family member or friend?: No Do you have trouble with day-to-day activities such as bathing, preparing meals, shopping, managing finances, etc.?: No Are you currently unemployed and looking for a job?: No Are you interested in more education?: No THRIVE Score: 0 AUDIT C Alcohol Use Questionnaire (AUDIT-C) 1. How often do you have a drink containing alcohol?: Never Total Score: 0 ELYSSA-7 AMB Questionnaire ELYSSA-7 Date ELYSSA - 7 assessed: 08/09/23 Feeling nervous, anxious, or on edge: 0 = Not at all Not being able to stop or control worryin = Not at all Worrying too much about different things: 0 = Not at all Trouble relaxin = Not at all Being so restless that it is hard to sit still: 0 = Not at all Becoming easily annoyed or irritable: 0 = Not at all Feeling afraid as if something awful might happen: 0 = Not at all Total ELYSSA-7 score (0-4 normal; 5-9 mild; 10-14 moderate; 15-21 severe): 0 Source: Developed by Drs. Marco Rain, Fabiana Ortega, Uziel Light and colleagues, with an educational taty from [employer]. ELYSSA-7 Assessment Billing ELYSSA-7 Assessment Tool: ELYSSA-7 Assessment 64309 Review of Systems Const Denies fatigue, Denies frequent falls, Denies headache(s), Denies lethargy, Den ies malaise and Denies weakness Eyes Reports blurry vision (Right more than the left), Denies diplopia, Denies dry eyes, Denies loss of peripheral vision and Reports requires corrective lenses ENT Denies dysphagia, Denies dizziness, Denies dry mouth, Denies headache(s) and Denies nasal congestion Card Denies chest pain, Denies rapid heart rate, Denies irregular heart rhythm, Denies leg edema, Denies lightheadedness, Denies palpitations and Denies dyspnea Resp Denies chest congestion, Denies cough and Denies dyspnea GI Denies abdominal pain, Denies melena, Denies bloating, Denies hematochezia, Denies change in bowel habits, Denies constipation, Denies dysphagia, Denies early satiety and Denies nausea Reports no additional complaints Musc Denies back pain, Denies arthralgias, Denies muscle cramps, Denies muscle w eakness and Denies tingling Skin/Breast Reports as per HPI and Denies rash Neuro Denies burning sensations, Denies dizziness, Denies frequent falls, Denies headache(s), Denies tingling, Denies paresthesias, Denies tremor(s) and Denies weakness Endo Denies fatigue, Denies polydipsia, Denies polyuria and Denies palpitations Simon/Lymph Reports no additional complaints Aller/Immun Reports no additional complaints Physical exam (Primary Care) Vital Signs: Last Vital Signs Pulse 67 08/09/23 11:45 BP 140/70 H 08/09/23 11:45 Pulse Ox 97 08/09/23 11:45 Oxygen Delivery Method Room Air 08/09/23 11:45 BMI result Body Mass Index 26.7 Tobacco/Smoking Status: Tobacco use Status Tobacco use date assessed 08/09/23 08/09/23 11:47 Patient Tobacco Use Status Current everyday Tobacco 08/09/23 11:47 Tobacco use type Cigarette 08/09/23 11:47 e-Cigarette/Vaping Use Never Used 08/09/23 11:47 PHQ-9: PHQ-9 Score PHQ-9: Total score 0 08/09/23 13:03 Depression Screening Interpretation: Negative Thrive Assessment: Date of Thrive Assessment Date Thrive assessed 08/09/23 08/09/23 12:10 Const Other: Alert oriented x3, no acute cardiorespiratory distress, normal gait Orientation/consciousness: patient oriented x3 [facility] General nose exam: Normal external nose present Face and sinus: Yes face symmetric Mouth: Normal oral and palatal mucosa present, oropharynx normal and moist mucous membranes Eyes General: appearance normal, both eyes and all related structures Neck Neck: Yes full ROM, Yes no lymphadenopathy and Yes supple Thyroid: Thyroid normal Resp Effort & Inspection: normal respiratory effort and able to speak in complete sentences Auscultation: clear to auscultation bilaterally Cardio Other: S1-S2 present regular rate and rhythm Jugular venous distension: no JVD GI Palpation (GI): Soft to palpation, nontender, no guarding and no masses Skin Other: Nodular mass with a central puncta on left upper arm, nontender to palpation Neuro General: patient oriented x3, gait normal, tone normal, moves all extremities, Normal light touch and pain sensation and no focal motor deficits Extrem General: Yes full ROM, Yes no joint enlargement, Yes no pedal edema, Yes no calf tenderness and Yes normal gait Results Reviewed Results Reviewed: Name: Radha Crews Age/Sex: 78/F : 1945 Unit#: [id number] Attend Dr: Hue Frost MD Re08/04/23 Status: DEP REF Location: [facility] Disch: SPEC : [id number] EVELYNE: 08/04/23 STATUS: COMP REQ : [id number] RECD: 08/04/23-[address]: Hue Frost MD COMP: 08/04/23-1058 ENTERED: 08/04/23-07[address] [facility] DR: ORDERED: Liver Panel, Met Prof Fast Test Result Flag Reference Sodium 143 135-145 mmol/L Potassium 3.9 3.3-5.1 mmol/L CL 105 96-108 mmol/L CO2 29 22-29 mmol/L Gap 13 12-20 BUN 26 H 9-16 mg/dL Creat 1.03 0.5-1.4 mg/dL EGFR 52 NOTE: For -Brazilian individuals, multiply the result by 1.210. Chronic Kidney Disease: Estimated GFR < 60 mL/min/1.73 m2 Severe Kidney Disease: Estimated GFR < 15 mL/min/1.73m2 FBS 94 60-99 mg/dL CA 9.4 8.4-10.2 mg/dL Total Bili 0.8 0.0-1.0 mg/dL Direct Bili 0.2 0.0-0.5 mg/dL AST (GOT) 18 5-31 U/L ALT (GPT) 27 0-31 U/L Protein, Total 7.8 6.5-8.0 g/dL Alb 4.4 3.5-5.0 g/dL Alk Phos 84 39-117 U/L Assessment and Plan Assessment & Plan (1) Colon cancer screening: Code(s): Z12.11 - Encounter for screening for malignant neoplasm of colon (2) Adenomatous colon polyp: Code(s): D12.6 - Benign neoplasm of colon, unspecified Plan: Referred back to Dr. Acosta for her screening colonoscopy, now due (3) Mass of soft tissue of left upper extremity: Code(s): M79.89 - Other specified soft tissue disorders Plan: General surgery consult obtained (4) Smoker unmotivated to quit: Code(s): F17.200 - Nicotine dependence, unspecified, uncomplicated Plan: Patient strongly advised to stop smoking, as smoking damages blood vessels, degenerative of joints and spine, damage to lungs and heart., predisposes to developing certain cancers like lung, breast, bladder, colon. Recommended to try decreasing cigarette use by 1-2 cigarettes a day. Advised to monitor what triggers are for smoking so that this can be discussed on the next office visit. We can discuss different options to quit smoking when ready. (5) Essential hypertension: Code(s): I10 - Essential (primary) hypertension Plan: Blood pressure at goal of less than 130/80. Continue with current medication. Reinforced importance of following a low sodium diet, getting regular exercise, and lowering stress levels. (6) Hypertriglyceridemia: Code(s): E78.1 - Pure hyperglyceridemia Plan: Repeat fasting lipid panel ordered, in the meantime continue with atorvastatin 10 mg daily Orders: Referrals General Surgery Referral D12.6 - Benign neoplasm of colon, unspecified, M79.89 - Other specified soft tissue disorders Gastroenterology Referral D12.6 - Benign neoplasm of colon, unspecified, Z12.11 - Encounter for screening for malignant neoplasm of colon Coding Level of Care Code Est Pt Level 4 (74148) Diagnoses Colon cancer screening Z12.11 Adenomatous colon polyp D12.6 Mass of soft tissue of left upper extremity M79.89 Smoker unmotivated to quit F17.200 Essential hypertension I10 Hypertriglyceridemia E78.1 Additional Codes ELYSSA-7 Assessment Billing - ELYSSA-7 Assessment Tool: ELYSSA-7 Assessment 68582 ([id number])
[2023-08-09 11:55] VITALS: BP 130/80
== END 2023-08-09 13:07 | disposition home or self-care (01) ==
PROVIDERS: PCP Internal Medicine; Visit Provider Internal Medicine
DX: D12.6 Benign neoplasm of colon, unspecified (principal); M79.89 Other specified soft tissue disorders; F17.200 Nicotine dependence, unspecified, uncomplicated; I10 Essential (primary) hypertension; E78.1 Pure hyperglyceridemia; Z12.11 Encounter for screening for malignant neoplasm of colon
CPT/HCPCS: 99214

== ENCOUNTER 2023-08-17 14:08 | Outpatient (REF) | payer MEDICARE, SELFPAY | END 2023-08-17 14:09 | disposition home or self-care (01) | LOC: HO.LNP 14:08 | PROVIDERS: PCP Internal Medicine; Referring Provider Internal Medicine; Visit Provider Surgery | DX: L72.0 Epidermal cyst (principal) | CPT/HCPCS: 11404; 88304; 99202 ==

== ENCOUNTER 2023-08-17 14:08 | Outpatient (AMB) | payer MEDICARE, SELFPAY ==
--- NOTE | 2023-08-17 14:09 | MHC.OFFVIS ---
Intake Visit Reasons: Nodular mass~ Lt upper arm Intake Note: Patient referred by PCP Dr. Frost for nodular mass on Lt upper arm. Present for 10m Patient c/o: denies pain, oozing. No hx of skin ca. Radiation Oncology Nurse Required: No Accompanied by: Self / Same As Patient Allergies No Known Allergies [No Known Allergies*] Allergy (Verified 08/17/23 14:14) Medication List - Last Reconciled 08/17/23 by Nicolas Carvajal MD alendronate 70 mg PO QWEEK atorvastatin 10 mg PO DAILY calcium citrate 500 mg (2 x 250 mg calcium) PO BID 90 days cholecalciferol (vitamin D3) 25 mcg PO DAILY docusate sodium (Colace) 100 mg PO DAILY metoprolol tartrate 12.5 mg (1/2 x 25 mg) PO BID vit C,L-Yu-twjex-lutein-zeaxan 250-90-40-1 mg (PreserVision AREDS-2) 1 tab PO BID HPI Comments Details: Patient presents for evaluation of a left mid triceps arm sebaceous cysts. She said it has been years time. It is increasing in size, become more symptomatic. She would like to have removed. She has no such lesions elsewhere. Chart was reviewed and patient evaluated [facility] Medical History Adenomatous colon polyp Smoker unmotivated to quit Recurrent kidney stones Microscopic hematuria Hypertriglyceridemia Encounter for monitoring alendronate therapy Rupture of ovary Pneumothorax, left Right rib fracture Sigmoid diverticulitis 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 Essential hypertension Aneurysm of aortic arch Vitamin D deficiency Osteoporosis Surgical History History of AAA (abdominal aortic aneurysm) repair Hx of colonoscopy Hx of hysterectomy History of surgery Hx of cholecystectomy History of appendectomy Family History Father HTN (hypertension) Mother HTN (hypertension) Social History Household Members: None Housing: Other Housing Other:: Senior housing Alcohol intake: unknown Patient Tobacco Use Status: Current everyday Tobacco user Tobacco use type: Cigarette Cigarettes Per Day: 8 e-Cigarette/Vaping Use: Never Used service: No Current occupational status: retired Cognitive needs: No Hearing needs: No Vision needs: Yes Physical Exam Extrem Other: Large proximally 4 x 3 cm left posterior/triceps sebaceous cyst. Office Procedures Excision Details: Risks, benefits, alternatives of excision of left tricep large sebaceous cyst reviewed the patient and included but not limited to bleeding, infection, recurrence, numbness, pain, scarring, seroma formation, wound dehiscence and the patient wished to proceed. All questions answered. Consent was signed. After appropriate positioning, patient underwent 1% lidocaine and Betadine prep and a transverse by elliptical incision around the large sebaceous cyst with specimen measuring approximately 4 x 3 cm was carried down through skin, subcutaneous tissue, and undermined and specimen sent to pathology. Wounds irrigated and secured for hemostasis. It was closed in the following manner; interrupted inverted deep dermal 3-0 Vicryl sutures followed by running subcuticular 3-0 Vicryl sutures were placed. Steri-Strips and sterile dressings were applied. Patient tolerated procedure well. 16705-rtbck/arms/legs 3.1-4cm Procedure code (CPT) selection complete Office Meds lidocaine 1 %-epinephrine 1:100,000 injection solution Performing Provider: Nicolas Carvajal MD Performing Location: [facility] Administered by: Nicolas Carvajal MD on 08/17/23 14:39 Dose Route Admin Location Dispensed Lot Number Expiration Date [facility] Land Checker 20 mL Infiltration 20 mL Assessment & Plan Assessment & Plan (1) Epidermal inclusion cyst: Code(s): L72.0 - Epidermal cyst Category: Surgical Plan Patient has been given local instructions including shower in 2 days, no strenuous activities, ice to the wound, Tylenol or Motrin p.r.n.. All questions answered. Patient will see me as directed or p.r.n.. Orders: Orders AMB Excision Today L72.0 - Epidermal cyst Medications: New lidocaine-epinephrine 1 %-1:100,000 20 mL Infiltration ONCE 30 mL 0RF L72.0 - Epidermal cyst Coding Level of Care Code New Pt Level 5 (81313) Diagnoses Epidermal inclusion cyst L72.0 CPT Codes Trunk/Arms/Legs - CPT: 17091-vspqu/arms/legs 3.1-4cm ([id number])
== END 2023-08-17 14:46 | disposition home or self-care (01) ==
PROVIDERS: PCP Internal Medicine; Referring Provider Internal Medicine; Visit Provider Surgery
DX: L72.0 Epidermal cyst (principal)
CPT/HCPCS: 11404; 99204

== ENCOUNTER 2023-08-19 15:15 | Outpatient (AMB) | payer MEDICARE, SELFPAY ==
[2023-08-19 15:16] VITALS: BP 170/73; PULSE 91; BMI 27.1
--- NOTE | 2023-08-19 15:16 | A.OFFVIS_ITS ---
Vital Signs 08/19/23 15:16 Height 5 ft 3 in Weight 153 lb 3.54 oz BMI 27.1 BP 170/73 H Blood Pressure Location Lt brachial Position Sitting Pulse 91 Pulse Source Pulse Oximeter Intake Visit Reasons: f/u osteoporosis-confirmed Intake Note: Patient present today for Osteoporosis follow up visit. Damper Maker Required: No Allergies No Known Allergies [No Known Allergies*] Allergy (Verified 08/19/23 15:21) HPI Comments Details: 78 yo female , for osteoporosis His feeling well, she has no complaints. She denies frequent falls She has been taking calcium citrate 600 mg 2 tablets once a day. She is on vitamin-D 1000 international units daily. She has been adherent with alendronate 70 mg once a week. Her method of administration is correct. On alendronate for 1 yr She reports her balance is okay. She quit smoking on April 2019 She was managed for osteoporosis by Dr Kiana Ward. She was on Prolia she got 3 doses, her prior cell attendant helper decided that was not needed any more. No prior fractures, no GERD, negative FH of fractures or osteoporosis, no nephrolithiasis, no steroids used, + smoker, no anti seizures medications, no SSRI. She has negative History of head or neck irradiation. Bisphosphonates use: never Calcium intake: calcium 1200 mg bid. Vitamin D:1000 IU daily Herbal medications. none. 04/02/2020 DEXA AP SPINE L2-L3 (excluding L1 and L4): The data of L1-L4 has been changed to exclude the L1 and L4 vertebral bodies, because degenerative change at these levels may cause overestimation of lumbar spine density. Current: BMD 0.938 g/cm2, Z-score -0.5, T-score -2.2, osteopenia, 2.3% increase from previous, 9.3% increase from baseline (<5% change is not significant). Prior: BMD 0.917 g/cm2. Baseline: BMD 0.858 g/cm2. LEFT FEMUR, NECK: Current: BMD 0.784 g/cm2, Z-score 0.1, T-score -1.8, osteopenia. Prior: BMD 0.758 g/cm2. Baseline: BMD 0.675 g/cm2. LEFT FEMUR, TOTAL: Current: BMD 0.854 g/cm2, Z-score 0.5, T-score -1.2, osteopenia, 0.9% increase from previous, 9.3% increase from baseline (<5% change is not significant). Prior: BMD 0.846 g/cm2. Baseline: BMD 0.781 g/cm2. LEFT FOREARM RADIUS 33%: BMD 0.535 g/cm2, Z-score -1.5, T-score -3.9, osteoporosis. Laboratory Tests FINDINGS: 2021 AP SPINE L1-L4: Current: BMD 1.115 g/cm2, Z-score 1.2, T-score -0.5, normal, 8.6% increase from previous, 23.3% increase from baseline (<5% change is not significant). Prior: BMD 1.027 g/cm2. Baseline: BMD 0.904 g/cm2. LEFT FEMUR, NECK: Current: BMD 0.660 g/cm2, Z-score -0.7, T-score -2.7, osteoporosis. Prior: BMD 0.784 g/cm2. Baseline: BMD 0.675 g/cm2. LEFT FEMUR, TOTAL: Current: BMD 0.717 g/cm2, Z-score -0.5, T-score -2.3, osteopenia, 16.0% decrease from previous, 8.2% decrease from baseline (<5% change is not significant). Prior: BMD 0.854 g/cm2. Baseline: BMD 0.781 g/cm2. LEFT FOREARM RADIUS 33%: BMD 0.512 g/cm2, Z-score -1.6, T-score -4.2, osteoporosis, 4.3% decrease from baseline (<5% change is not significant). 10/26/19 01/17/20 05/27/20 11:53 08:13 07:30 Creatinine 1.12 Est GFR (Non-Af Amer) 47 Calcium Albumin N-Telopeptide X-linked 11 25-OH Vitamin D Total PTH Intact 26 05/27/20 09:05 Creatinine Est GFR (Non-Af Amer) Calcium 10.2 Albumin 4.6 N-Telopeptide X-linked 25-OH Vitamin D Total 51.3 PTH Intact Currently on alendronate. 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 Essential hypertension Aneurysm of aortic arch Vitamin D deficiency Osteoporosis Surgical History History of AAA (abdominal aortic aneurysm) repair Hx of colonoscopy Hx of hysterectomy History of surgery Hx of cholecystectomy History of appendectomy Family History Father HTN (hypertension) Mother HTN (hypertension) Social History Household Members: None Housing: Other Housing Other:: Senior housing Alcohol intake: unknown Patient Tobacco Use Status: Current everyday Tobacco user Tobacco use type: Cigarette Cigarettes Per Day: 8 e-Cigarette/Vaping Use: Never Used service: No Current occupational status: retired Cognitive needs: No Hearing needs: No Vision needs: Yes Physical Exam Vital Signs: Last Vital Signs Pulse 91 08/19/23 15:16 BP 170/73 H 08/19/23 15:16 BMI result Body Mass Index 27.1 Assessment & Plan Assessment & Plan (1) Osteoporosis: Code(s): M81.0 - Age-related osteoporosis without current pathological fracture Category: Medical Qualifiers: Osteoporosis type: age-related Presence of current pathological fracture: without current pathological fracture Qualified Code(s): M81.0 - Age- related osteoporosis without current pathological fracture Plan: This 77-year-old white female with a history of osteoporosis withcomplete secondary workup being treated with alendronate 70 mg Q weekly. DEXA has been stable Plan is to Continue with alendronate . Will check urine NTX. Repeat bone density to be performed in 04/2024 Orders: Orders XR DEXA axial skeleton 9 Months M81.0 - Age-related osteoporosis without current pathological fracture Collagen Crosslinks NTX Today M81.0 - Age-related osteoporosis without current pathological fracture XR DEXA appendicular skeleton 9 Months M81.0 - Age-related osteoporosis without current pathological fracture Medications: Refilled alendronate 70 mg PO QWEEK 4 tabs 11RF alendronate 70 mg PO QWEEK 14 tabs 4RF Coding Level of Care Code Est Pt Level 3 (32337) Diagnoses Age-related osteoporosis without current pathological fracture M81.0 Osteoporosis type: age-related Presence of current pathological fracture: without current pathological fracture
== END 2023-08-19 15:32 | disposition home or self-care (01) ==
PROVIDERS: PCP Internal Medicine; Visit Provider Internal Medicine Endocrinology, Diabetes & Metabolism
DX: M81.0 Age-related osteoporosis without current pathological fracture (principal)
CPT/HCPCS: 99213

== ENCOUNTER → 2023-08-19 15:15 | Outpatient (BNVA) | payer MEDICARE, SELFPAY | PROVIDERS: PCP Internal Medicine; Visit Provider Internal Medicine Endocrinology, Diabetes & Metabolism | DX: M81.0 Age-related osteoporosis without current pathological fracture (principal) | CPT/HCPCS: 99212 ==

== ENCOUNTER 2023-08-23 06:52 | Outpatient (REF) | payer MEDICARE, SELFPAY ==
[2023-08-23 11:42] LABS: Alanine Aminotransferase 18 U/L (0-31); Anion Gap 14 (12-20); Aspartate Amino Transferase 15 U/L (5-31); Blood Urea Nitrogen 26 mg/dL (9-16); Carbon Dioxide 29 mmol/L (22-29); Chloride 102 mmol/L (96-108); Cholesterol 178 mg/dL (<200); Estimated Glomerular Filt Rate 56; Glucose Fasting 95 mg/dL (60-99); HDL Cholesterol 38 mg/dL (>40); LDL Cholesterol Calculated 95 mg/dL (<100); Potassium 3.6 mmol/L (3.3-5.1); Sodium 141 mmol/L (135-145); Triglycerides 229 mg/dL (<150)
== END 2023-08-23 06:53 | disposition home or self-care (01) ==
LOC: HO.HMGCLDS 06:52
PROVIDERS: PCP Internal Medicine; Referring Provider Internal Medicine Endocrinology, Diabetes & Metabolism; Visit Provider Internal Medicine
DX: I10 Essential (primary) hypertension (principal); E78.1 Pure hyperglyceridemia
CPT/HCPCS: 36415; 80048; 80061; 84450; 84460

== ENCOUNTER 2023-08-31 12:29 | Outpatient (AMB) | payer MEDICARE, SELFPAY ==
--- NOTE | 2023-08-31 12:46 | A.OFFVIS_ITS ---
Intake Visit Reasons: s/p Nodular mass~ Lt upper arm Intake Note: Patient here s/p exc cyst on Lt upper arm. Reports incision healing well. Patient c/o: lesion getting scabby but states i'm not picking. Pulmonology Technician Required: No Accompanied by: Self / Same As Patient Allergies No Known Allergies [No Known Allergies*] Allergy (Verified 08/31/23 12:47) HPI Comments Details: Patient presents for follow-up. She has no wound issues or complaints. 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 Essential hypertension Aneurysm of aortic arch Vitamin D deficiency Osteoporosis Surgical History History of AAA (abdominal aortic aneurysm) repair Hx of colonoscopy Hx of hysterectomy History of surgery Hx of cholecystectomy History of appendectomy Family History Father HTN (hypertension) Mother HTN (hypertension) Social History Household Members: None Housing: Other Housing Other:: Senior housing Alcohol intake: unknown Patient Tobacco Use Status: Current everyday Tobacco user Tobacco use type: Cigarette Cigarettes Per Day: 8 e-Cigarette/Vaping Use: Never Used service: No Current occupational status: retired Cognitive needs: No Hearing needs: No Vision needs: Yes Physical Exam Extrem Other: Left biceps wound is healing very well clean dry and intact Assessment & Plan Assessment & Plan (1) Postop check: Code(s): Z09 - Encounter for follow-up examination after completed treatment for conditions other than malignant neoplasm Category: Surgical Plan Patient has been given local instructions, and will follow-up p.r.n.. All questions answered. Coding Level of Care Code Global (80983) Diagnoses Postop check Z09
== END 2023-08-31 13:03 | disposition home or self-care (01) ==
PROVIDERS: PCP Internal Medicine; Visit Provider Surgery
DX: Z09 Encounter for follow-up examination after completed treatment for conditions other than malignant neoplasm (principal)
CPT/HCPCS: 99024

== ENCOUNTER → 2023-08-31 12:29 | Outpatient (BNVA) | payer MEDICARE, SELFPAY | PROVIDERS: PCP Internal Medicine; Visit Provider Surgery | DX: Z09 Encounter for follow-up examination after completed treatment for conditions other than malignant neoplasm (principal); Z87.2 Personal history of diseases of the skin and subcutaneous tissue | CPT/HCPCS: 99212 ==

== ENCOUNTER 2024-02-17 06:30 | Outpatient (REF) | payer MEDICARE, SELFPAY ==
[2024-02-23 08:14] LABS: N-Telopeptide 53 (see note); NTXCreaRU 41 mg/dL (20-275)
== END 2024-02-17 06:31 | disposition home or self-care (01) ==
LOC: HO.HMGCLNP 06:30
PROVIDERS: PCP Internal Medicine; Visit Provider Internal Medicine Endocrinology, Diabetes & Metabolism
DX: Z13.89 Encounter for screening for other disorder (principal)
CPT/HCPCS: 82523

== ENCOUNTER 2024-02-17 08:36 | Outpatient (REF) | payer MEDICARE, SELFPAY ==
[2024-02-17 10:52] LABS: Alanine Aminotransferase 23 U/L (0-31); Anion Gap 11 (12-20); Aspartate Amino Transferase 24 U/L (5-31); Blood Urea Nitrogen 19 mg/dL (9-16); Calcium 9.6 mg/dL (8.4-10.2); Carbon Dioxide 31 mmol/L (22-29); Chloride 106 mmol/L (96-108); Cholesterol 184 mg/dL (<200); Estimated Glomerular Filt Rate 59; Glucose Fasting 88 mg/dL (60-99); HDL Cholesterol 41 mg/dL (>40); LDL Cholesterol Calculated 85 mg/dL (<100); Potassium 4.5 mmol/L (3.3-5.1); Sodium 143 mmol/L (135-145); Triglycerides 292 mg/dL (<150)
[2024-02-17 10:58] LABS: Vitamin D 25-OH Total 66.9 ng/mL (>30)
== END 2024-02-17 08:37 | disposition home or self-care (01) ==
LOC: HO.HMGCLDS 08:36
PROVIDERS: PCP Internal Medicine; Visit Provider Internal Medicine
DX: E78.1 Pure hyperglyceridemia (principal); I10 Essential (primary) hypertension; E55.9 Vitamin D deficiency, unspecified; M81.0 Age-related osteoporosis without current pathological fracture
CPT/HCPCS: 36415; 80048; 80061; 82306; 82523; 84450; 84460

== ENCOUNTER 2024-02-22 10:54 | Outpatient (AMB) | payer MEDICARE, SELFPAY ==
[2024-02-22 11:24] VITALS: BP 126/74; PULSE 65; O2SAT 97; BMI 26.7
--- NOTE | 2024-02-22 11:24 | MHC.PC.OV ---
Vital Signs 02/22/24 11:24 Height 5 ft 3 in Weight 151 lb BMI 26.7 BP 126/74 Blood Pressure Location Lt brachial Position Sitting Pulse 65 Pulse Source Pulse Oximeter Pulse Oximetry (%) 97 Oxygen Delivery Method Room Air Intake Visit Reasons: PE Intake Note: Pt is here today for PE. Allergies No Known Allergies [No Known Allergies*] Allergy (Verified 02/27/24 19:10) Medication List - Last Reconciled 02/27/24 by Hue Frost MD alendronate 70 mg PO QWEEK atorvastatin 10 mg PO DAILY calcium citrate 500 mg (2 x 250 mg calcium) PO BID 90 days cholecalciferol (vitamin D3) 25 mcg PO DAILY docusate sodium (Colace) 100 mg PO DAILY metoprolol tartrate 12.5 mg (1/2 x 25 mg) PO BID nicotine 1 patch transdermal DAILY vit C,V-Iw-rmgml-lutein-zeaxan 250-90-40-1 mg (PreserVision AREDS-2) 1 tab PO BID Tobacco use date assessed: 02/22/24 Fall risk assessment: No Falls in past year Last assessed Fall Risk: 02/22/24 Dental Screening Dental Screen Date: 02/22/24 Did you have a dental visit in the last 12 months?: Yes Did you have a dental problem in the last 6 months where you did not have access to dental care?: No Was dental information given to patient?: Patient has dentist HPI PE HPI Details 78-year-old lady with dyslipidemia, hypertension history of adenomatous colon polyp, osteoporosis, history of recurrent kidney stones, and history of an aneurysm of aortic arch status post aorta and hemiarch replacement done at [facility] 4 1/2 years ago,, here today for physical exam. She has been feeling well, with no complaints at present time. Currently followed by Dr. Jiménez for osteoporosis and is on alendronate 70 mg once a week. Up-to-date with her screening mammogram done this year, and has an appointment for her screening colonoscopy again in March 2024 . 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 Essential hypertension Aneurysm of aortic arch Vitamin D deficiency Osteoporosis Surgical History (Updated 02/22/24 @ 11:54 by Hue Frost MD) History of aortic aneurysm repair History of AAA (abdominal aortic aneurysm) repair Hx of colonoscopy Hx of hysterectomy History of surgery Hx of cholecystectomy History of appendectomy Family History Father HTN (hypertension) Mother HTN (hypertension) Social History Household Members: None Housing: Other Housing Other:: Senior housing Alcohol intake: unknown Patient Tobacco Use Status: Current everyday Tobacco user Tobacco use type: Cigarette Cigarettes Per Day: 8 e-Cigarette/Vaping Use: Never Used service: No Current occupational status: retired Cognitive needs: No Hearing needs: No Vision needs: Yes Questionnaire Thrive Questionnaire Date Thrive assessed: 08/09/23 AUDIT C Alcohol Use Questionnaire (AUDIT-C) 1. How often do you have a drink containing alcohol?: Never Total Score: 0 ELYSSA-7 AMB Questionnaire ELYSSA-7 Date ELYSSA - 7 assessed: 08/09/23 Source: Developed by Drs. Marco Rain, Fabiana Ortega, Uziel Light and colleagues, with an educational taty from [email or web address]. Review of Systems Const Denies fatigue, Denies frequent falls, Denies headache(s), Denies lethargy, Denies malaise and Denies weakness Eyes Reports blurry vision (Right more than the left), Denies diplopia, Denies dry eyes, Denies loss of peripheral vision and Reports requires corrective lenses ENT Denies dysphagia, Denies dizziness, Denies dry mouth, Denies headache(s) and Denies nasal congestion Card Denies chest pain, Denies rapid heart rate, Denies irregular heart rhythm, Denies leg edema, Denies lightheadedness, Denies palpitations and Denies dyspnea Resp Denies chest congestion, Denies cough and Denies dyspnea GI Denies abdominal pain, Denies melena, Denies bloating, Denies hematochezia, Denies change in bowel habits, Denies constipation, Denies dysphagia, Denies early satiety and Denies nausea Reports no additional complaints Musc Denies back pain, Denies arthralgias, Denies muscle cramps, Denies muscle weakness and Denies tingling Skin/Breast Reports as per HPI and Denies rash Neuro Denies burning sensations, Denies dizziness, Denies frequent falls, Denies headache(s), Denies tingling, Denies paresthesias, Denies tremor(s) and Denies weakness Psych Reports no additional complaints Endo Denies fatigue, Denies polydipsia, Denies polyuria and Denies palpitations Simon/Lymph Reports no additional complaints Aller/Immun Reports no additional complaints Physical exam (Primary Care) Vital Signs: Last Vital Signs Pulse 65 02/22/24 11:24 BP 126/74 02/22/24 11:24 Pulse Ox 97 02/22/24 11:24 Oxygen Delivery Method Room Air 02/22/24 11:24 BMI result Body Mass Index 26.7 Tobacco/Smoking Status: Tobacco use Status Tobacco use date assessed 02/22/24 02/22/24 11:28 Patient Tobacco Use Status Current everyday Tobacco 02/22/24 11:28 Tobacco use type Cigarette 02/22/24 11:28 e-Cigarette/Vaping Use Never Used 02/22/24 11:28 Thrive Assessment: Date of Thrive Assessment Date Thrive assessed 08/09/23 02/22/24 11:28 Const Other: Alert oriented x3, no acute cardiorespiratory distress, normal gait Orientation/consciousness: patient oriented x3 [facility] General nose exam: Normal external nose present Face and sinus: Yes face symmetric Mouth: Normal oral and palatal mucosa present, oropharynx normal and moist mucous membranes Eyes General: appearance normal, both eyes and all related structures Neck Neck: Yes full ROM, Yes no lymphadenopathy and Yes supple Thyroid: Thyroid normal Chest Breast/axilla palpation: normal palpation of the breasts Resp Effort & Inspection: normal respiratory effort and able to speak in complete sentences Auscultation: clear to auscultation bilaterally Cardio Other: S1-S2 present regular rate and rhythm Jugular venous distension: no JVD GI Palpation (GI): Soft to palpation, nontender, no guarding and no masses General: Yes no CVA tenderness Back/Spine/Pelvis Back: no CVA tenderness and No back tenderness Skin General skin exam: no rashes or lesions noted Neuro General: patient oriented x3, gait normal, tone normal, moves all extremities, Normal light touch and pain sensation and no focal motor deficits Extrem General: Yes full ROM, Yes no joint enlargement, Yes no pedal edema, Yes no calf tenderness and Yes normal gait Psych Appearance: grossly normal and well kempt Mental Status: mental status grossly normal Speech and movement: Normal speech and movement present Affect: normal affect Attitude: cooperative Thought process: Normal thought process present Results Reviewed Results Reviewed: Name: Radha Crews Age/Sex: 78/F : 1945 Unit#: [id number] Attend Dr: Hue Frost MD Re02/17/24 Status: DEP REF Location: [facility] [address] Disch: SPEC : [id number] EVELYNE: 02/17/24 STATUS: COMP REQ : [id number] RECD: 02/17/[address]: Hue Frost MD COMP: 02/17/24 ENTERED: 02/17/[address] [facility] DR: ORDERED: Met Prof Fast, AST, ALT, Lipid Panel, Vitamin D 25-OH Test Result Flag Reference Sodium 143 135-145 mmol/L Potassium 4.5 # 3.3-5.1 mmol/L CL 106 96-108 mmol/L CO2 31 H 22-29 mmol/L Gap 11 L 12-20 BUN 19 H 9-16 mg/dL Creat 0.92 0.5-1.4 mg/dL EGFR 59 NOTE: For -[place] individuals, multiply the result by 1.210. Chronic Kidney Disease: Estimated GFR < 60 mL/min/1.73m2 Severe Kidney Disease: Estimated GFR < 15 mL/min/1.73m2 FBS 88 60-99 mg/dL CA 9.6 8.4-10.2 mg/dL AST (GOT) 24 5-31 U/L ALT (GPT) 23 0-31 U/L Triglyceride 292 H <150 mg/dL Desirable Triglyceride: less than 150 mg/dL Borderline High Triglyceride 150-199 mg/dL High Triglyceride: 200-499 mg/dL Very High Triglyceride: greater than or equal to 5OO mg/dL Cholesterol 184 <200 mg/dL Desirable Cholesterol: less than 200 mg/dL Borderline High Cholesterol: 200-239 mg/dL High Cholesterol: greater than 239 mg/dL LDL Calculated 85 <100 mg/dL Desirable LDL: less than 100 mg/dL Near Optimal/Above Optimal LDL: 110-129 mg/dL Borderline High LDL: 130-159 mg/dL High LDL: 160-189 mg/dL Very High LDL: greater than or equal to 190 mg/dL HDL 41 >40 mg/dL Desirable HDL: greater than 40 mg/dL Note: This HDL assay may give artificially low results in patients with liver disease. Vit D 25-OH Tot 66.9 >30 ng/mL Health Based Reference Values* < 20 ng/mL Deficient 20-30 ng/mL Insufficient > 30 ng/mL Sufficient Coding Level of Care Code Est Pt Level 4 (32050) Complex EM visit Add On G2211 Diagnoses Annual visit for general adult medical examination with abnormal findings Z00. Cigarette smoker motivated to quit F1. Hypertriglyceridemia E78.1 Essential hypertension I10 Age-related osteoporosis without current pathological fracture M81.0 Osteoporosis type: age-related Presence of current pathological fracture: without current pathological fracture Assessment & Plan Assessment & Plan (1) Annual visit for general adult medical examination with abnormal findings: Code(s): Z00. - Encounter for general adult medical examination with abnormal findings Plan: Recent fasting lab results reviewed with patient. Continue regular dental visit every 6 months and regular eye exams, at least every 2 years. Take adequate calcium in diet and vitamin-D 3 at 2000 IU per cap once a day, in addition to weight-bearing exercises to help maintain good muscle tone and weight control. Instructed to do self-breast exam, and continue with yearly mammogram. Up-to-date with her bone density scan, last done a year ago. Up-to-date with his screening colonoscopy, with repeat screening scheduled for 03/[address] Ohara. Up-to-date with her COVID booster, pneumococcal vaccination shingles vaccine Tdap, reminded to get her yearly flu shot (2) Cigarette smoker motivated to quit: Code(s): F17.210 - Nicotine dependence, cigarettes, uncomplicated Plan: Discussed options for smoking cessation with medications. Prescription sent for nicotine patch, 14 mg per patch, advised to apply the nicotine patch as directed on cigarette quit day. Discussed common side effects and strongly advised not to smoke while using the patch. If developes any adverse effects please call office. Follow up in office 4weeks .Discussed side effects including but not limited to local erythema, rash, diarrhea, and insomnia., , (3) Hypertriglyceridemia: Code(s): E78.1 - Pure hyperglyceridemia Category: Medical Plan: Reviewed latest fasting labs with patient which showed elevated triglycerides, with normal LDL cholesterol and HDL. Reinforced importance of following a low-cholesterol diet and get regular exercise. Continue with atorvastatin 10 mg daily (4) Essential hypertension: Code(s): I10 - Essential (primary) hypertension Category: Medical Plan: Blood pressure at goal of less than 130/80. Continue metoprolol tartrate 12.5 mg 1 tablet twice a day. Reinforced importance of following a low sodium diet, getting regular exercise, and lowering stress levels. (5) Osteoporosis: Code(s): M81.0 - Age-related osteoporosis without current pathological fracture Category: Medical Qualifiers: Osteoporosis type: age-related Presence of current pathological fracture: without current pathological fracture Qualified Code(s): M81.0 - Age-related osteoporosis without current pathological fracture Plan: Currently on alendronate, followed by endocrine clinic Medications: New nicotine 1 patch transdermal DAILY 28 ea 0RF F17.210 - Nicotine dependence, cigarettes, uncomplicated
== END 2024-02-22 11:58 | disposition home or self-care (01) ==
LOC: HO.HMCC 10:54
PROVIDERS: PCP Internal Medicine; Visit Provider Internal Medicine
DX: Z00.01 Encounter for general adult medical examination with abnormal findings (principal); F17.210 Nicotine dependence, cigarettes, uncomplicated; E78.1 Pure hyperglyceridemia; I10 Essential (primary) hypertension; M81.0 Age-related osteoporosis without current pathological fracture

== ENCOUNTER → 2024-02-22 10:54 | Outpatient (BNVA) | payer MEDICARE, SELFPAY | PROVIDERS: PCP Internal Medicine; Visit Provider Internal Medicine | DX: E78.1 Pure hyperglyceridemia (principal); I10 Essential (primary) hypertension; M81.0 Age-related osteoporosis without current pathological fracture | CPT/HCPCS: 99212 ==

== ENCOUNTER 2024-03-02 10:34 | Outpatient (AMB) | payer MEDICARE, SELFPAY ==
--- NOTE | 2024-03-02 10:42 | A.OFFVIS_ITS ---
Intake Vital Signs 03/02/24 10:53 Height 5 ft 3 in Weight 151 lb BMI 26.7 BP 130/80 Blood Pressure Location Rt brachial Position Sitting Pulse 69 Pulse Source Pulse Oximeter Pulse Oximetry (%) 94 Oxygen Delivery Method Room Air Intake Visit Reasons: SAWV G0439 Intake Note: Pt is here today for her SAWV G0439: Last mammogram 05/04/23, bone density scan 05/01/23, colonoscopy 10/12/18 Allergies No Known Allergies [No Known Allergies*] Allergy (Verified 03/02/24 11:31) Medication List - Last Reconciled 03/02/24 by Hue Frost MD alendronate 70 mg PO QWEEK atorvastatin 10 mg PO DAILY calcium citrate 500 mg (2 x 250 mg calcium) PO BID 90 days cholecalciferol (vitamin D3) 25 mcg PO DAILY docusate sodium (Colace) 100 mg PO DAILY metoprolol tartrate 12.5 mg (1/2 x 25 mg) PO BID nicotine 1 patch transdermal DAILY vit C,T-Yh-tlsrz-lutein-zeaxan 250-90-40-1 mg (PreserVision AREDS-2) 1 tab PO BID HPI SAWV G0439 HPI Details SWV ? 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 She was recently seen by Dr. Ja Jauregui for follow-up on after her aortic arch surgery, and is scheduled to have a repeat CTA of chest again to years. She had a recent fasting lipid panel and fasting blood sugar done 02/17/2024 which showed results within normal limits except for elevated triglycerides. She is up-to-date with her screening mammogram, done 05/04/2023 and has another appointment already scheduled for next year, last colonoscopy screening was done in 2019, has an appointment with Dr. Ohara next month for a repeat colonoscopy screening. Her last bone density scan was done in 2022, ordered by Dr. Jiménez, who is following her for osteoporosis She is up-to-date with all her vaccinations. She already has a healthcare proxy and MOLST plan completed.. ? Medical / Social History Reviewed? Past Medical History ?Yes . ? [place] of Care / Care Team list updated ?Yes . ? Surgical/Hospitalization History ?Yes . ? Current Medications (including OTC and supplements) ?Yes . ? Family History ?Yes . ? Tobacco Control form ?Yes . ? AUDIT-C (Alcohol use) form ?Yes . ? Illicit drug use in Social History ?Yes . ? Current diagnosis of depression? ?No ? Appropriate PHQ2/PHQ9 completed ?Yes . ? Data entered by ?Java Lead Engineer and reviewed by provider ? Fall Risk ? Fall History? Have you had any falls with injury in the past year? ?No . ? Have you had two or more falls in the past year? ?No . ? Fall Risk Assessment: ?No falls in the past year . ? HRA filled out by the patient, reviewed by Provider and scanned. ? IPPE/AWV ? Balance? Romberg ?Yes . ? Tandem walk ?Yes . ? Walk and Turn ?Yes . ? Rise from sit to stand ?Yes . ?Vision? Corrective lens ?Yes ? Vision screen ? Up-to-date, she sees Dr. Denise Mckenna and retina [facility] center for follow-up her for macular degeneration ?Hearing? Whisper test ?pass . ?Written Plan?Completed. See Patient Documents.? 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 Essential hypertension Aneurysm of aortic arch Vitamin D deficiency Osteoporosis Surgical History History of aortic aneurysm repair History of AAA (abdominal aortic aneurysm) repair Hx of colonoscopy Hx of hysterectomy History of surgery Hx of cholecystectomy History of appendectomy Family History Father HTN (hypertension) Mother HTN (hypertension) Social History Household Members: None Housing: Other Housing Other:: Senior housing Alcohol intake: unknown Patient Tobacco Use Status: Current everyday Tobacco user Tobacco use type: Cigarette Cigarettes Per Day: 8 e-Cigarette/Vaping Use: Never Used service: No Current occupational status: retired Cognitive needs: No Hearing needs: No Vision needs: Yes Questionnaire Medicare Wellness Checkup What [age] What gender do you identify with?: female During the past 4 weeks, how much have you been bothered by emotional problems such as feeling anxious, depressed, irritable, sad or downhearted, and blue?: not at all During the past 4 weeks, has your physical & emotional health limited your social activities with family, friends, neighbors, or groups?: not at all During the past 4 weeks, how much bodily pain have you generally had?: very mild pain During the past 4 weeks, was someone available to help you if you needed & wanted help?: yes, quite a bit During the past 4 weeks, what was the hardest physical activity you could do for at least 2 minutes?: heavy Can you get to places out of walking distance without help? (For eg., can you travel alone on buses, taxis or drive your car?): Yes Can you go shopping for groceries or clothes without someone's help?: Yes Can you prepare your own meals?: Yes Can you do your housework without help?: Yes Because of any health problems, do you need the help of another person with your personal care needs such as eating, bathing, dressing or getting around the house?: No Can you handle your own money without help?: Yes During the past 4 weeks, how would you rate your health in general?: very good During the past 4 weeks how have things been going for you?: very well; could hardly better Are you having difficulties driving your car?: no Do you always fasten your seat belt when you are in a car?: yes, usually During past 4 weeks, have you been bothered by the following: never: Falling or dizzy when standing up, Sexual problems?, Trouble eating well?, Teeth or denture problems?, Problems using the telephone? and Tiredness or fatigue? Have you fallen 2 or more times in the past year?: No Are you afraid of falling?: No Are you a smoker?: yes, and I might quit During the past 4 weeks, how many drinks of wine, beer, or other alcoholic beverages did you have?: no alcohol at all Do you exercise for about 20 minutes 3 or more times a week?: no, I usually do not exercise this much Have you been given information to help with the following?: no: Hazards in your house that might hurt you? and no: Keeping track of your medications? How often do you have trouble taking medicines the way you have been told to take them?: I always take medicine as prescribed How confident are you that you can control & manage most of your health problems?: very confident What is your race?: White Mini Mental State Exam (MMSE) Orientation What is the (year) (season) (date) (day) (month)?: year (2023), season (fall), date (03/02/2024), day () and month (February) Where are we (state) (county) (town or city) (hospital) (floor)?: state ([place]), county ([place]), town or city ([place]) and hospital/clinic ([facility]) Score Score: 9 Activity of Daily Living Bathing - sponge bath, tub bath or shower: receives no assistance (gets in/out by self, if usual bathing means Dressing - getting clothes from closets & drawers, including inner/outer garments & fasteners.: gets clothes & gets completely dressed without help Toileting - going to the 'toilet room' for urine/bowel elimination & cleaning self/arranging clothes: goes to toilet room, cleans self, arranges clothes without help Transfer: moves in & out of bed and chair without help (may use support object) Continence: has occasional 'accidents' Feeding: feeds self without help Total Score: 0 Information obtained from: patient Using telephone: independent Traveling: independent Shopping: independent Preparing meals: independent Housework: independent Taking medicine: independent Managing money: independent PHQ-9 Over the last 2 weeks, how often have you been bothered by any of the following problems? 1. Little interest or pleasure in doing things: not at all 2. Feeling down, depressed, or hopeless: not at all 3. Trouble falling or staying asleep, or sleeping too much: not at all 4. Feeling tired or having little energy: not at all 5. Poor appetite or overeating: not at all 6. Feeling bad about yourself - or that you are a failure or have let yourself or your family down: not at all 7. Trouble concentrating on things, such as reading the newspaper or watching television: not at all 8. Moving or speaking so slowly that other people could have noticed. Or the opposite - being so fidgety or restless that you have been moving around a lot more than usual: not at all 9. Thoughts that you would be better off or of hurting yourself in some way: not at all Total score: 0 Depression Screening Interpretation: Negative Depression Screening Done: Yes 61740 - PHQ-9 Billing: Yes Source: Developed by Drs. Marco Rain, Fabiana Ortega, Uziel Light and colleagues, with an educational taty from [employer]. Physical Exam Vital Signs: Last Vital Signs Pulse 69 03/02/24 10:53 BP 130/80 03/02/24 10:53 Pulse Ox 94 03/02/24 10:53 Oxygen Delivery Method Room Air 03/02/24 10:53 BMI result Body Mass Index 26.7 Assessment & Plan Assessment & Plan (1) Encounter for subsequent annual wellness visit (AWV) in Medicare patient: Code(s): Z00.00 - Encounter for general adult medical examination without abnormal findings Plan: Medical wellness checklist reviewed, discussed with patient and updated. Up-to-date with her vaccinations (2) Adenomatous colon polyp: Code(s): D12.6 - Benign neoplasm of colon, unspecified Qualifiers: Colon location: unspecified part of colon Qualified Code(s): D12.6 - Benign neoplasm of colon, unspecified Plan: Patient scheduled for another colonoscopy screening next month with Dr. Ohara (3) Hypertriglyceridemia: Code(s): E78.1 - Pure hyperglyceridemia Plan: Continue on atorvastatin 10 mg daily, reinforced importance of following a healthy diet, cutting back on potato chips and junk food. (4) Recurrent kidney stones: Code(s): N20.0 - Calculus of kidney Plan: Followed by Urology (5) Essential hypertension: Code(s): I10 - Essential (primary) hypertension Plan: Blood pressure at goal of less than 130/80. Continue with metoprolol tartrate 12.5 mg 1 tablet twice a day. Reinforced importance of following a low sodium diet, getting regular exercise, smoking cessation, and lowering stress levels. (6) Osteoporosis: Code(s): M81.0 - Age-related osteoporosis without current pathological fracture Qualifiers: Osteoporosis type: age-related Presence of current pathological fracture: without current pathological fracture Qualified Code(s): M81.0 - Age- related osteoporosis without current pathological fracture Plan: Currently on alendronate, followed by Dr. Jiménez Quality Reporting (2019) Depression/Bipolar (159/160/161/177) PHQ-9: Total score: 0 Coding Level of Care Code Medicare Subsequent (G0439) Diagnoses Encounter for subsequent annual wellness visit (AWV) in Medicare patient Z00.00 Adenomatous polyp of colon, unspecified part of colon D12.6 Colon location: unspecified part of colon Hypertriglyceridemia E78.1 Recurrent kidney stones N20.0 Essential hypertension I10 Age-related osteoporosis without current pathological fracture M81.0 Osteoporosis type: age-related Presence of current pathological fracture: without current pathological fracture CPT Codes Advance Care Planning - Advance Care Planning discussion: On file, no changes ([id number]) Advance Care Planning - Time spent: 1-15 minutes, on File ([id number]) Additional Codes PHQ-9 - 80689 - PHQ-9 Billing: Yes ([id number]) Advance Care Planning Advance Care Planning discussion: On file, no changes Date of discussion: 03/02/24 Who was present: Patient Forms completed: Health Care Proxy and MOLST Time spent: 1-15 minutes, on File Actual minutes spent: 2
[2024-03-02 10:53] VITALS: BP 130/80; PULSE 69; O2SAT 94; BMI 26.7
== END 2024-03-02 11:28 | disposition home or self-care (01) ==
LOC: HO.HMCC 10:35
PROVIDERS: PCP Internal Medicine; Visit Provider Internal Medicine
DX: Z00.00 Encounter for general adult medical examination without abnormal findings (principal); D12.6 Benign neoplasm of colon, unspecified; E78.1 Pure hyperglyceridemia; N20.0 Calculus of kidney; I10 Essential (primary) hypertension; M81.0 Age-related osteoporosis without current pathological fracture

== ENCOUNTER → 2024-03-02 10:34 | Outpatient (BNVA) | payer MEDICARE, SELFPAY | PROVIDERS: PCP Internal Medicine; Visit Provider Internal Medicine ==

== ENCOUNTER 2024-05-26 10:27 | Outpatient (REF) | payer MEDICARE, SELFPAY ==
--- NOTE | ~2024-05-26 | MM_ITS ---
EXAMINATION: DXA BONE DENSITY EXTREMITY HISTORY: Estrogen deficiency TECHNIQUE: HipSnip Dual energy absorptiometry (DEXA) of the lumbar spine, distal radius, total left hip, and femoral neck was performed. COMPARISON: Comparison is made with the prior examination dated 04/28/2022. FINDINGS: The bone mineral density of the lumbar spine is 1.141 with a T-score of -0.3, and a Z-score of 1.4. This represents a BMD change of 2.3% compared to the prior exam. This is not statistically significant. The bone mineral density of the left total hip is 0.801 with a T-score of -1.6, and a Z-score of 0.3. This represents BMD change of 11.7% compared to the prior exam. This is statistically significant. The bone mineral density of the left femoral neck is 0.719 with a T-score of -2.3, and a Z-score of -0.2. This represents BMD change of 8.9% compared to the prior exam. The bone mineral density of the distal radius is 0.530 with a T-score of -4.0, and a Z-score of -1.2. This represents BMD change of 3.5% compared to the prior exam. This is not statistically significant. FRACTURE RISK: The FRAX index suggests a ten year probability of major osteoporotic fracture of 26.7%, and of hip fracture 11.9%. MM/XR DEXA appendicular skeleton IMPRESSION: Based on bone mineral density, and according to World Health Organization (WHO) criteria, the diagnosis is consistent with osteoporosis. All bone density values are in grams per centimeter squared (g/cm2). Statistically, 68% of repeat scans fall within 1 SD (+/- 0.010 g/cm2 for AP spine L1-L4) and 1 SD (+/- 0.012 g/cm2 for femur total) FRAX is a trademark of the [employer]'s [place] for Metabolic Bone Disease, a World Health Organization (WHO) Collaborating Center. Electronically signed by: Marco Hernandez MD 05/29/2024 12:56 PM [facility]
--- NOTE | ~2024-05-26 | MM_ITS ---
EXAMINATION: MM SCREENING DIGITAL BREAST TOMOSYNTHESIS, BILATERAL CLINICAL INFORMATION: Screening. Asymptomatic. COMPARISON: Mammography: Comparison is made with available priors TECHNIQUE: Digital breast mammography with tomosynthesis is performed in both the craniocaudal and mediolateral oblique views along with computer-aided detection (CAD). FINDINGS: There are scattered areas of fibroglandular density (ACR BI-RADS breast composition Category b). There are no significant masses, abnormal calcifications, or other abnormalities. MM/MM tomosynthesis screening BI IMPRESSION: No mammographic evidence of malignancy. ASSESSMENT: BI-RADS BI-RADS 1 - Negative RECOMMENDATION: Routine annual mammography screening. 1 year F/U This examination should not preclude the clinical evaluation of a suspicious palpable abnormality. This patient's information was entered into a reminder system with a target due date for their next mammogram. Electronically signed by: Dominique Segovia DO 06/03/2024 07:32 PM [facility]
--- OUTSIDE RECORDS SUMMARY | 2024-05-26 11:11 | XMS_ITS | Data Portability ---
Author Organization [place] - [facility], Allergy Address [address] [address] Care Team Providers Care Silk Weaver Name Role Phone JOHANAJalenNURYS Primary Care Provider [phone] Assessment Encounter Date Assessment Date Assessment LastModified by Organization Details LastModified Time 03/20/2024 03/20/2024 Patient presents for evaluation of ears. Cerumen successfully removed bilaterally, which patient tolerated well. Otologic exam otherwise unremarkable. Patient reported hearing returned to baseline thereafter and declined audiometric testing. Return in 3-6 months for cerumen removal. Avoid Q-tips. Avoid or protect against loud noise. Recommend annual audiometric testing, sooner with perceived change. Patient understands to call sooner with any issues that arise. [email or web address] Not available 03/20/2024 15:09:37 Plan of Treatment Reminders Order Date Submit Date Provider Last Modified By Organization Details Last Modified Time Details Appointments Establish ed 15 2024 11:30A M ANGÉLICA DOSHI PA-C Not available Not available Not available Lab None recorded. Referral None recorded. Procedures None recorded. Surgeries None recorded. Imaging None recorded. Medication Orders None recorded. Patient TargetsNo targets recorded. Patient InstructionsNo instructions recorded. Reason for Referral None Reported. Problems Name Problem SNOMED Code Status Onset Date Resolution Date Notes Provider Name and Address Organization Details Recorded Time Impacted cerumen of bilateral ears 15040773141 09102 Active 2020 Impacted cerumen, bilateral ; Note: Date Diagnosed : 09/13/2020 12:15 PM (H61.23) Not Available [facility] 02:52:12 Problem Notes None recorded. Procedures Surgical History Date Name Laterality Status Provider Name and Address Organization Details Recorded Time Cerumen removal without microscope bilat completed MARRY MA PA-C [address] [facility] [address], [place], [address], [place] - [facility] 03/20/2024 13:23:32 Imaging Results None recorded. Procedure Notes None recorded. Medical Equipment None Reported. Medications Name Sig Start Date Stop Date Status Note LastModified by Organization Details LastModified Time nicotine 14 mg/24 hr daily transderma l patch APPLY 1 PATCH TOPICALLY ONCE DAILY active Not Available Not Available No t Available atorvastat in 10 mg tablet TAKE 1 TABLET BY MOUTH ONCE DAILY active Not Available Not Available No t Available alendronat e 70 mg tablet active Medicatio n ID: [id number] Br and Name: alendrona te Send Method: E-Prescri bed Subs Allowed: subs OK Medica tionGener icName: alendrona te Not Available Not Available Not Available prednisolo ne acetate 1 % eye drops,susp ension INSTILL 1 DROP INTO RIGHT EYE 4 TIMES DAILY FOR 4 DAYS AFTER LASER DIRECTED active Not Available Not Available No t Available Aspirin Childrens 81 mg chewable tablet active Medicatio n ID: [id number] Br and Name: Aspirin Childrens Send Method: E-Prescri bed Subs Allowed: subs OK Medica tionGener icName: Aspirin Childrens Not Available Not Available Not Available metoprolol tartrate 25 mg tablet TAKE 1/2 (ONE-HALF ) TABLET BY MOUTH TWICE DAILY active Not Available Not Available No t Available PreserVisi on AREDS 4,296 mcg-226 mg-90 mg capsule active Medicatio n ID: [id number] Br and Name: PreserVis ion AREDS Sen d Method: E-Prescri bed Subs Allowed: subs OK Medica tionGener icName: PreserVis ion AREDS Not Available Not Available Not Available Vitals Date Recorded Body height Body mass index (BMI) Body weight Provider Name and Address Organization Details Last Updated DateTime 03/20/2024 160.02 cm 26.6 kg/m2 99735.86 g Blaise Robins [place] - [facility] 03/20/2024 13:09:00 Social History None recorded. Functional Status None recorded. Mental Status None recorded. Family History Nothing Reported. Medical History No medical history recorded. Gynecological HistoryNo gynecological history recorded. Obstetrics History GPAL:G 0 P 0 0 0 0 Past Encounters Encounter ID Performer Location Encounter Start Date Encounter Closed Date Diagnosis/Indication Diagnosis SNOMED-CT Code Diagnosis ICD10 Code Diagnosis Note [id number] GURINDER MENG MD [facility] [address] [place] [address] 03/20/2024 12:45:18 03/20/2024 13:25:57 Impacted cerumen of bilateral ears [id number] 802306 H61.23 Health Concerns Section Related Observation LastModified by Organization Detai ls LastModified Time None Recorded Concern Status LastModified by Organization Details LastModified Time None Recorded Advance Directives Directive None Recorded Payers Encounter Date Sequence Insurance Name Policy Number Policy Mendes Covered Member ID Mendes Member ID Guarantor Name 03/20/[address] [place] [address] [id number] aRdha Crews [id number] Radha Crews Notes Date Note Type Note Provider Name and Address Organization Details Recorded Time 03/20/2024 text/html 79 year old female presents for evaluation of ears. Thinks she has a cerumen impaction, feels full. There has been no change in baseline hearing, no otorrha, and no otalgia. GURINDER MENG MD [address] [place] [address], [phone], [facility] - [facility] 03/20/2024 21:06:37 OBGyn Episode No OBEpisode recorded.
== END 2024-05-26 10:28 | disposition home or self-care (01) ==
LOC: HO.MAMMO 10:27
PROVIDERS: PCP Internal Medicine; Visit Provider Internal Medicine
DX: M81.0 Age-related osteoporosis without current pathological fracture (principal); Z12.31 Encounter for screening mammogram for malignant neoplasm of breast
CPT/HCPCS: 77063; 77067; 77081

== ENCOUNTER → 2024-05-26 11:00 | Outpatient (BNV) | payer MEDICARE, SELFPAY | PROVIDERS: PCP Internal Medicine; Visit Provider Radiology Diagnostic Radiology | DX: Z12.31 Encounter for screening mammogram for malignant neoplasm of breast (principal) | CPT/HCPCS: 77063; 77067 ==

== ENCOUNTER 2024-06-08 09:52 | Emergency (ER) | payer MEDICARE, SELFPAY ==
--- NOTE | ~2024-06-08 | XR_ITS ---
EXAMINATION: XR CHEST CLINICAL INFORMATION: cough COMPARISON: December 10, 2017. TECHNIQUE: 2 views of the chest were obtained. FINDINGS: Pulmonary reticular pattern. Bilateral apical lung scarring. No consolidation, pleural effusion or pneumothorax. Prominent partially calcified aortic arch. Sternal wires. Multilevel thoracolumbar spondylosis. Osteopenia versus osteoporosis. XR/XR chest 2V IMPRESSION: Chronic interstitial lung disease without gross acute airspace disease. 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 Electronically signed by: Phil Mcqueen MD 06/08/2024 12:30 PM EST [facility]
[2024-06-08 10:04] VITALS: BP 115/50; PULSE 73; RESP 18; TEMP 36.6; O2SAT 93; BMI 24.8
[2024-06-08 10:30] LABS: Basophils Absolute Auto 0.1 X10*3/uL (0.0-0.2); Basophils Percent Auto 0.5 % (0-2); Eosinophils Absolute Auto 0.1 X10*3/uL (0.0-0.4); Eosinophils Percent Auto 0.7 % (0-4); Hematocrit 41.9 % (37.0-47.0); Hemoglobin 13.8 g/dl (12.0-16.0); Imm Gran Abs Auto 0.18 X10*3/uL (0.00-0.03); Lymphocytes Absolute Auto 1.2 X10*3/uL (1.2-4.9); Lymphocytes Percent Auto 6.4 % (20-40); MANUAL DIFF FLAG SCAN; Mean Corpuscular HGB Conc 32.9 g/dl (31.0-35.0); Mean Corpuscular Hemoglobin 29.9 pg (27.0-33.0); Mean Corpuscular Volume 90.7 fL (80.0-98.0); Mean Platelet Volume 9.6 fL (9.4-12.3); Monocytes Absolute Auto 1.5 X10*3/uL (0.1-1.2); Monocytes Percent Auto 8.2 % (2-11); Neutrophils Absolute Auto 15.4 x10*3/uL (2.0-8.3); Neutrophils Percent Auto 83.2 % (45-73); Platelet Count 319 X10*3/uL (160-400); Red Blood Count 4.62 X10*6/uL (4.20-5.50); Red Cell Distribution Width 13.9 % (11.0-16.0); SCAN SMEAR FLAG 1; White Blood Count 18.5 X10*3/uL (4.8-10.8)
[2024-06-08 10:32] LABS: Appearance Urine Turbid; Color Urine Yellow; Glucose Urine UA Negative (Negative); Leukocyte Esterase Urine Large (3+) (Negative); Nitrite Urine Positive (Negative); Specific Gravity - Urine 1.015 (1.005-1.025); UMIC TRIGGER UACC YES; Urine Blood Large (3+) (Negative); Urine Ketones Negative (Negative); Urine Protein 100 (2+) mg/dL (Neg-Trace)
[2024-06-08 10:41] LABS: Bacteria Urine 4+ (None Seen); Squamous Epithelial Cell Urine >20 /HPF (0-2); UACC Culture Trigger YES; WBC Urine >50 /HPF (0-5)
[2024-06-08 10:44] LABS: Alanine Aminotransferase 25 U/L (0-31); Albumin Level 3.5 g/dL (3.5-5.0); Alkaline Phosphatase 125 U/L (39-117); Anion Gap 14 (12-20); Aspartate Amino Transferase 25 U/L (5-31); Bilirubin Total 0.6 mg/dL (0.0-1.0); Blood Urea Nitrogen 25 mg/dL (9-16); Calcium 9.5 mg/dL (8.4-10.2); Carbon Dioxide 29 mmol/L (22-29); Chloride 101 mmol/L (96-108); Creatinine Clr Calc Pharmacy 31.5; Estimated Glomerular Filt Rate 40; Glucose Random 93 mg/dL (60-115); Potassium 3.3 mmol/L (3.3-5.1); Sodium 141 mmol/L (135-145); Total Protein 7.8 g/dL (6.5-8.0)
[2024-06-08 10:51] LABS: SLIDE REVIEW VERIFIED
[2024-06-08 11:13] LABS: Influenza A PCR NEGATIVE (Negative); Influenza B PCR NEGATIVE (Negative); Resp Syncy Virus RNA Qual PCR NEGATIVE (Negative); SARS COV2 PCR INHOUSE NEGATIVE (Negative)
--- NOTE | 2024-06-08 12:03 | ED.GENADULT ---
HPI - General Adult General Chief complaint: Weakness Stated complaint: Weakness Time Seen by Provider: 06/08/24 12:03 Source: patient and family (patient's daughter) Mode of arrival: ambulatory Limitations: no limitations History of Present Illness ED Provider: Sheri Kaur PA-C HPI narrative: Patient is an 79 year old assigned female at with a history of HTN, recurrent kidney stones, and aneurysm of the aortic arch presenting to the emergency department today with generalized weakness and a cough. Patient states that over the last 2 weeks she has felt generally unwell, weak, and has developed a cough. Patient denies any dizziness, lightheadedness, abdominal pain, nausea, vomiting, fever, chills, blurry vision, double vision, loss of vision, chest pain, difficulty breathing, shortness of breath, back pain, night sweats, pain with urination, increased urinary frequency, increased urinary urgency, blood in her urine or stool, syncope or a near syncopal episode, recent trauma or falls, bowel incontinence, bladder incontinence, or any other complaints at this time. Onset (ago): week(s) (2) Relieving factors: none Exacerbating factors: none Associated symptoms: cough and weakness Treatments prior to arrival: none Related Data Home Medications ?Medication ?Instructions ?Recorded ?Confirmed cholecalciferol (vitamin D3) 25 25 mcg PO DAILY 09/19/20 08/11/23 mcg (1,000 unit) capsule vit C 250 mg-vit E 90 mg-zinc 40 1 tab PO BID 01/20/21 08/11/23 mg-copper 1 [id number] capsule (PreserVision AREDS-2) docusate sodium 100 mg capsule 100 mg PO DAILY 10/31/21 08/11/23 (Colace) Previous Rx's ?Medication ?Instructions ?Recorded calcium citrate 500 mg (2 x 250 mg calcium) PO BID 05/31/20 90 days #360 tabs alendronate 70 mg tablet 70 mg PO QWEEK #14 tabs 08/19/23 atorvastatin 10 mg tablet 10 mg PO DAILY #90 tabs 01/12/24 metoprolol tartrate 25 mg tablet 12.5 mg (1/2 x 25 mg) PO BID #90 01/12/24 tabs nicotine 14 mg/24 hr daily 1 patch transdermal DAILY #28 ea 02/22/24 transdermal patch cefuroxime axetil 250 mg tablet 250 mg PO BID 7 days #14 tabs 06/08/24 Allergies Allergy/AdvReac Type Severity Reaction Status Date / Time No Known Allergies Allergy Verified 06/08/24 10:07 [No Known Allergies*] Review of Systems Constitutional: Constitutional: Reports no additional constitutional complaints, Denies chills, Denies fever(s), Denies night sweats and Reports weakness Eyes: Eyes: Reports no additional eye complaints, Denies blurry vision, Denies change in vision, Denies diplopia, Denies eye discharge, Denies loss of vision and Denies eye pain ENT: Denies dizziness Cardiovascular: Cardiovascular: Reports no additional cardiovascular complaints, Denies chest pain, Denies lightheadedness, Denies Loss of Consciousness and Denies dyspnea Respiratory: Respiratory: Reports no additional respiratory complaints, Reports cough and Denies dyspnea Gastrointestinal: Gastrointestinal: Reports no additional gastrointestinal complaints, Denies abdominal pain, Denies melena, Denies hematochezia, Denies change in bowel habits and Denies change in stool character Genitourinary: Genitourinary: Denies hematuria, Denies urinary frequency, Denies dysuria, Denies urinary incontinence, Denies urinary hesitancy and Denies urinary urgency Musculoskeletal: Musculoskeletal: Reports no additional musculoskeletal complaints, Denies numbness and Denies tingling Neurologic: Denies dizziness, Denies loss of vision, Denies numbness, Denies tingling and Reports weakness Psychiatric: Psychiatric: Reports no additional psychiatric complaints Endocrine: Endocrine: Reports no additional endocrine complaints Hematologic/Lymphatic: Hematologic/Lymphatic: Reports no additional hematologic/lymphatic complaints Allergic/Immunologic: Allergic/Immunologic: Reports no additional allergic/immunologic complaints [facility] Past Medical History Attestation statement: The following information was validated with the patient. 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 Essential hypertension Aneurysm of aortic arch Vitamin D deficiency Osteoporosis Surgical History History of aortic aneurysm repair History of AAA (abdominal aortic aneurysm) repair Hx of colonoscopy Hx of hysterectomy History of surgery Hx of cholecystectomy History of appendectomy Family History Family History Father HTN (hypertension) Mother HTN (hypertension) Social History Social History Household Members: None Housing: Other Housing Other:: Senior housing Alcohol intake: unknown Patient Tobacco Use Status: Current everyday Tobacco user Tobacco use type: Cigarette Cigarettes Per Day: 8 e-Cigarette/Vaping Use: Never Used Advance Directives: Yes Advance Directives on File: Yes Advance Directives Date on File: 02/08/23 Do you have a plan to hurt others: No Plan service: No Current occupational status: retired Cognitive needs: No Hearing needs: No Vision needs: Yes Physical Exam ED Vital Signs: Vital Signs - 24 hr 06/08/24 10:04 06/08/24 12:14 Temperature 97.8 F 97.5 F Pulse Rate 73 88 Respiratory Rate 18 14 Blood Pressure 115/50 L 129/58 L Pulse Oximetry 93 95 Oxygen Delivery Method Room Air Room Air BMI result Body Mass Index 24.8 Const General: cooperative, no acute distress, alert and awake Nutritional Appearance: well nourished Orientation/consciousness: patient oriented x3 Limitations: no limitations HENMT Head: Yes normal to inspection and Yes atraumatic Ears: hearing grossly normal bilaterally and external ears normal General nose exam: Normal external nose present, no nasal discharge noted and no epistaxis Face and sinus: Yes normal facial exam, No abrasion and No laceration Mouth: Normal oral and palatal mucosa present, no drooling and no muffled voice Eyes General: appearance normal, both eyes and all related structures Periorbital: periorbital findings normal Eyelids: Yes eyelids normal Conjunctivae: conjunctivae normal Pupils: Equal, round and reactive pupils present EOM: EOMs intact bilaterally Neck Neck: Yes normal visual inspection, Yes full ROM and Yes no lymphadenopathy Chest Chest palpation & inspection: normal inspection of the chest Resp Effort & Inspection: normal respiratory effort and able to speak in complete sentences GI Inspection: Yes normal to inspection Neuro General: patient oriented x3, moves all extremities and CN's II-XI intact bilaterally Cranial nerves: Yes Equal, round and reactive pupils present Cognition (Neuro): normal cognition Extrem General: Yes normal to inspection, Yes full ROM and Yes capillary refill normal Psych Appearance: grossly normal Mental Status: mental status grossly normal Affect: normal affect Attitude: cooperative Thought process: Normal thought process present Thought content: Normal thought content present Insight: Good insight present (Psych) Medical Decision Making Medical Decision Making MDM Narrative: Patient is an 79 year old assigned female at with a history of HTN, recurrent kidney stones, and aneurysm of the aortic arch presenting to the emergency department today with generalized weakness and a cough. Patient's physical exam was unremarkable. Patient's blood work showed an elevated WBC count of 18.5. Patient's urine showed evidence of an acute infection, given the patient's clinical presentation - will treat. Patient's chest x-ray showed no acute process. I explained my physical exam findings as well as all test results to the patient and the patient's daughter. I answered all questions asked by the patient and the patient's daughter. I stressed the importance of the patient taking her medication as directed (either prescribed or as the over the counter packaging recommends). I stressed the importance of the patient following up with her primary care provider. I stressed the importance of the patient returning to the emergency department immediately if her symptoms were to worsen or if she were to develop any dizziness, shortness of breath, difficulty breathing, chest pain, blurry vision, loss of vision, nausea, vomiting, abdominal pain, fever, chills, back pain, or any other complaints. Patient and the patient's daughter verbalized agreement and understanding with this treatment plan and discharge. Differential Diagnosis Differential Diagnoses: The differential diagnosis associated with the presentation includes Cough PNA UTI Weakness Viral illness Admission/Observation Consideration of admission/observation: Escalation of care including admission/observation considered Patient would have been admitted to the hospital had her work up had any findings where hospital admission was appropriate and her clinical presentation warranted hospital admission. Lab Data [facility] Lab Attestation statement: I reviewed the patient's lab results. My interpretation of these results are in the [facility] Rationale portion of this note. 06/08/24 10:17 06/08/24 10:17 Labs: Lab Results 06/08/24 06/08/24 Range/Units 10:17 10:23 WBC 18.5 H (4.8-10.8) X10*3/uL RBC 4.62 (4.20-5.50) X10*6/uL Hgb 13.8 (12.0-16.0) g/dl Hct 41.9 (37.0-47.0) % MCV 90.7 (80.0-98.0) fL MCH 29.9 (27.0-33.0) pg MCHC 32.9 (31.0-35.0) g/dl RDW 13.9 (11.0-16.0) % Plt Count 319 (160-400) X10*3/uL MPV 9.6 (9.4-12.3) fL Immature Gran % (Auto) 1.0 H (0.0-0.4) % Neut % (Auto) 83.2 H (45-73) % Lymph % (Auto) 6.4 L (20-40) % [place] % (Auto) 8.2 (2-11) % Eos % (Auto) 0.7 (0-4) % Baso % (Auto) 0.5 (0-2) % Lymph # (Auto) 1.2 (1.2-4.9) X10*3/uL [place] # (Auto) 1.5 H (0.1-1.2) X10*3/uL Eos # (Auto) 0.1 (0.0-0.4) X10*3/uL Baso # (Auto) 0.1 (0.0-0.2) X10*3/uL Abs Immat Gran (auto) 0.18 H (0.00-0.03) X10*3/uL Absolute Neuts (auto) 15.4 H (2.0-8.3) x10*3/uL Absolute Nucleated RBC 0.000 (0.0-0.012) X10*3/uL Nucleated RBC % (auto) 0.0 (0.0-0.2) /100WBC Smear Tech's Comments VERIFIED Sodium 141 (135-145) mmol/L Potassium 3.3 D (3.3-5.1) mmol/L Chloride 101 (96-108) mmol/L Carbon Dioxide 29 (22-29) mmol/L Anion Gap 14 (12-20) BUN 25 H (9-16) mg/dL Creatinine 1.28 (0.5-1.4) mg/dL Estim Creat Clear Calc 31.5 Estimated GFR 40 Random Glucose 93 (60-115) mg/dL Calcium 9.5 (8.4-10.2) mg/dL Total Bilirubin 0.6 (0.0-1.0) mg/dL AST 25 (5-31) U/L ALT 25 (0-31) U/L Alkaline Phosphatase 125 H (39-117) U/L Total Protein 7.8 (6.5-8.0) g/dL Albumin 3.5 (3.5-5.0) g/dL Urine Color Yellow Urine Appearance Turbid Urine pH 6.0 (5.0-9.0) Ur Specific [place] 1.015 (1.005-1.025) Urine Protein 100 (2+) H (Neg-Trace) mg/dL Urine Glucose (UA) Negative (Negative) mg/dL Urine Ketones Negative (Negative) mg/dL Urine Blood Large (3+) H (Negative) Urine Nitrite Positive H (Negative) Ur Leukocyte Esterase Large (3+) H (Negative) Urine RBC 11-20 H (0-2) /HPF Urine WBC >50 H (0-5) /HPF Ur Squamous Epith Cells >20 (0-2) /HPF Urine Bacteria 4+ (None Seen) Hyaline Casts 11-20 (0-2) /LPF Influenza Type A (PCR) NEGATIVE (Negative) Influenza Type B (PCR) NEGATIVE (Negative) RSV RNA Qual (PCR) NEGATIVE (Negative) SARS-CoV-2 RNA (RT-PCR) NEGATIVE (Negative) Independent Interpretation I performed an independent interpretation of an: Plain X-Ray Interpretation: My interpretation is in agreement with the radiologist's impression of this imaging study. EXAMINATION: XR CHEST CLINICAL INFORMATION: cough COMPARISON: December 10, 2017. TECHNIQUE: 2 views of the chest were obtained. FINDINGS: Pulmonary reticular pattern. Bilateral apical lung scarring. No consolidation, pleural effusion or pneumothorax. Prominent partially calcified aortic arch. Sternal wires. Multilevel thoracolumbar spondylosis. Osteopenia versus osteoporosis. XR/XR chest 2V IMPRESSION: Chronic interstitial lung disease without gross acute airspace disease. 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 Electronically signed by: Phil Mcqueen MD 06/08/2024 12:30 PM [facility] Dictated By: Phil Singh MD Signed By: Electronically signed by Phil Fox MD 06/08/24 1236 Radiology Impression Discussion of test interpretation with radiology: I have reviewed the radiologist's reading. Independent Historian Clinical information obtained from an independent historian. History obtained from or confirmed by: Other (patient's daughter provided additional history and confirmed the history provided by the patient.) Tests considered The following testing was considered but not selected: I considered obtaining a CT scan of the abdomen/pelvis however, the patient's clinical presentation and work up did not warrant this. I discussed this with the patient and her daughter who verbalized understanding and agreement. Prescription Management I considered prescription management with: Antibiotic (patient prescribed an antibiotic for UTI) Discharge Plan Discharge Clinical Impression: UTI (urinary tract infection) Patient Disposition: Home, Self-Care Instructions: Urinary Tract Infection in Women (DC) Additional Instructions: Your work up today showed evidence of a urinary tract infection. Follow up with your primary care provider and your urologist. Return to the emergency department immediately if your symptoms worsen or if you develop any dizziness, shortness of breath, difficulty breathing, chest pain, blurry vision, loss of vision, nausea, vomiting, abdominal pain, fever, chills, back pain, or any other complaints. Prescriptions: New cefuroxime axetil 250 mg tablet 250 mg PO BID 7 Days Qty: 14 0RF No Action atorvastatin 10 mg tablet 10 mg PO DAILY Qty: 90 1RF metoprolol tartrate 25 mg tablet 12.5 mg PO BID Qty: 90 1RF cholecalciferol (vitamin D3) 25 mcg (1,000 unit) capsule 25 mcg PO DAILY PreserVision AREDS-2 250-90-40-1 mg capsule 1 tab PO BID docusate sodium [Colace] 100 mg capsule 100 mg PO DAILY calcium citrate 250 mg calcium tablet 500 mg PO BID 90 Days Qty: 360 3RF alendronate 70 mg tablet 70 mg PO QWEEK Qty: 14 4RF nicotine 14 mg/24 hr patch 24 hour 1 patch transdermal DAILY Qty: 28 0RF Referrals: Hue Frost MD [Primary Care Provider] - Print Language: Citizen [place]
[2024-06-08 12:14] VITALS: BP 129/58; PULSE 88; RESP 14; TEMP 36.4; O2SAT 95
[2024-06-08 13:34] VITALS: BP 129/58; PULSE 88; RESP 14; TEMP 36.4; O2SAT 95
== END 2024-06-08 13:35 | disposition home or self-care (01) ==
PROVIDERS: Emergency Provider Emergency Medicine Emergency Medical Services; PCP Internal Medicine
DX: N39.0 Urinary tract infection, site not specified (principal); R05.9 Cough, unspecified; I10 Essential (primary) hypertension; R53.1 Weakness; F17.210 Nicotine dependence, cigarettes, uncomplicated; Z03.818 Encounter for observation for suspected exposure to other biological agents ruled out; Z79.899 Other long term (current) drug therapy
CPT/HCPCS: 0241U; 71046; 80053; 81001; 85025; 87086; 87088; 87186; 99283

== ENCOUNTER → 2024-06-08 12:04 | Outpatient (BNV) | payer MEDICARE, SELFPAY | PROVIDERS: Emergency Provider Emergency Medicine Emergency Medical Services; PCP Internal Medicine; Visit Provider Radiology Diagnostic Radiology | DX: J84.9 Interstitial pulmonary disease, unspecified (principal) | CPT/HCPCS: 71046 ==

== ENCOUNTER 2024-06-16 08:42 | Outpatient (AMB) | payer MEDICARE, SELFPAY ==
--- NOTE | 2024-06-16 09:03 | MHC.OFFWIV ---
Intake Vital Signs 06/16/24 09:05 Height 5 ft 3 in Weight 140 lb BMI 24.8 BP 130/90 H Blood Pressure Location Lt brachial Position Sitting Pulse 75 Pulse Source Pulse Oximeter Temp 98.0 F Temp Source Oral Pulse Oximetry (%) 96 Oxygen Delivery Method Room Air Intake Visit Reasons: EP-?uti Intake Note: Patient here for UTI, headache, off balance that started last week. Patient Tobacco Use Status: Current everyday Tobacco user Allergies No Known Allergies [No Known Allergies*] Allergy (Verified 06/08/24 10:07) Do you need a note to return to daycare/school/sports/work: No HPI HPI Comments History of Present Illness Details This is an 79-year-old female who presented to the walk-in clinic with her niece with multiple complaints. Patient was recently diagnosed with a urinary tract infection a [facility] about 1 week ago. She was treated with PO cefuroxime 250 mg twice daily x7 days, which patient completed and her urinary symptoms have resolved. She states that she has been feeling off balance and unsteady since starting the antibiotics; however, her knee states that this is not a new issue for her. Her niece states that the patient has had progressively worsening functional and cognitive decline over the past 2 years and her niece is concerned that the patient is no longer fit to live by herself. Patient is adamant that she does not want to live in a facility or want extra help in the home. Patient's niece states that she has had intermittent acute worsening of her mental status several times over the past 2 years and has been diagnosed and treated for urinary tract infections but her symptoms never fully resolved and they have been progressively worsening over the past 2 years. Patient has not been evaluated by her primary care physician or a neurologist/neuropsychiatrist for her symptoms as of yet. Patient has also had a lot of life stressors recently including her son's recent cancer diagnosis and losing her [id number]. Her niece states that this has heavily weighed on the patient's mind. Patient is currently denying chest pain, shortness of breath, abdominal pain, nausea/vomiting/diarrhea, numbness/weakness/paresthesias of her extremities, facial asymmetry, slurred speech, fever/chills, flank/back pain, dysuria/hematuria, or urinary frequency/urgency. 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 Essential hypertension Aneurysm of aortic arch Vitamin D deficiency Osteoporosis Surgical History History of aortic aneurysm repair History of AAA (abdominal aortic aneurysm) repair Hx of colonoscopy Hx of hysterectomy History of surgery Hx of cholecystectomy History of appendectomy Family History Father HTN (hypertension) Mother HTN (hypertension) Social History Household Members: None Housing: Other Housing Other:: Senior housing Alcohol intake: unknown Patient Tobacco Use Status: Current everyday Tobacco user Tobacco use type: Cigarette Cigarettes Per Day: 8 e-Cigarette/Vaping Use: Never Used Advance Directives Date on File: 02/08/23 service: No Current occupational status: retired Cognitive needs: No Hearing needs: No Vision needs: Yes Review of Systems Const All systems reviewed & are unremarkable except as noted in HPI and below Reports no additional complaints Eyes Reports no additional complaints ENT Reports no additional complaints Card Reports no additional complaints Resp Reports no additional complaints GI Reports no additional complaints Reports no additional complaints Musc Reports no additional complaints Skin/Breast Reports system reviewed and no additional complaints, except as documented Neuro Reports no additional complaints Psych Reports no additional complaints Endo Reports no additional complaints Simon/Lymph Reports no additional complaints Aller/Immun Reports no additional complaints Physical Exam Vital Signs: Last Vital Signs Temp 98.0 F 06/16/24 09:05 Pulse 75 06/16/24 09:05 BP 130/90 H 06/16/24 09:05 Pulse Ox 96 06/16/24 09:05 Oxygen Delivery Method Room Air 06/16/24 09:05 BMI result Body Mass Index 24.8 Const Other: Vital signs reviewed. Constitutional: Non-toxic appearing. No acute distress. Well-developed and well-nourished. HEENT: Normocephalic and atraumatic. Skin: Warm and dry. No rashes or lesions noted. Neck: Full and painless range of motion. No cervical lymphadenopathy. Cardio: Regular rate and rhythm. No murmurs, gallops, or rubs. No lower extremity edema. No JVD. Pulmonary: No respiratory distress. No accessory muscle usage. Clear to auscultation bilaterally without wheezing, crackles, or rhonchi. Gastrointestinal: Soft, nontender, and nondistended in all 4 quadrants. Normoactive bowel sounds in all 4 quadrants. Genitourinary: No CVA tenderness. Musculoskeletal: Normal range of motion in joints throughout the body. No deformity or other signs of injury. Neuro: Alert and oriented x4. Cranial nerves 2-12 grossly intact. No focal deficits appreciated. Psych: Normal mood and affect. Results AMB Urinalysis, Automated UA Leukoctes 15 [place]/uL Last Edit by MILAD Pang on 06/16/24 09:33 UA Nitrite Negative Last Edit by Ximena Pepe CCM on 06/16/24 09:33 UA Urobilinogen 0.2 mg/dL Last Edit by Ximena Pepe CCM on 06/16/24 09:33 UA Protein 0 mg/dL Last Edit by Ximena Pepe [facility] on 06/16/24 09:33 UA pH 6.0 Last Edit by Ximena Pepe CCM on 06/16/24 09:33 UA Blood 200 [place]/uL Last Edit by Ximena Pepe CCM on 06/16/24 09:33 UA Specific [place] 1.005 Last Edit by Ximena Pepe CCM on 06/16/24 09:33 UA Ketone Negative Last Edit by Ximena Pepe CCM on 06/16/24 09:33 UA Bilirubin 0 mg/dL Last Edit by Ximena Pepe CCM on 06/16/24 09:33 UA Glucose 0 mg/dL Last Edit by Ximena Pepe CCM on 06/16/24 09:33 Assessment & Plan Assessment & Plan (1) Cognitive decline: Code(s): R41.89 - Other symptoms and signs involving cognitive functions and awareness Plan: This is an 79-year-old female who presented to the walk-in clinic with her niece with progressively worsening function no/cognitive decline over the past 2 years. She occasionally has acute changes in her mental status in the setting of recurrent urinary tract infection, most recently she was diagnosed with a UTI on 06/08/24 treated with cefuroxime. Her urine culture was reviewed and grew Klebsiella sensitive to cephalosporins and her urinalysis today only shows a small amount of leukocyte esterase and negative nitrites and her urinary symptoms have resolved, so it appears that her urinary tract infection has been treated adequately. I explained to the patient and her niece there is not much I can do for them as this has been a chronic issue over the past 2 years. Given patient's niece's report of recent life stressors, patient was evaluated by our community health worker and she was given a referral for therapy. She adamantly denies suicidal ideations at this time. I also encouraged patient and her niece to follow-up with her PCP for neurology/neuropsychiatry referral given her progressive functional/cognitive decline. Patient and her niece were very appreciative of the help provided today. Orders: Orders AMB Urinalysis Automated Today Z13.9 - Encounter for screening, unspecified Coding Level of Care Code Est Pt Level 3 (84397) Diagnoses Cognitive decline R41.89
[2024-06-16 09:05] VITALS: BP 130/90; PULSE 75; TEMP 36.7; O2SAT 96; BMI 24.8
== END 2024-06-16 10:38 | disposition home or self-care (01) ==
PROVIDERS: PCP Internal Medicine; Visit Provider Physician Assistant Medical
DX: Z13.9 Encounter for screening, unspecified (principal); R41.89 Other symptoms and signs involving cognitive functions and awareness

== ENCOUNTER → 2024-06-16 08:42 | Outpatient (BNVA) | payer MEDICARE, SELFPAY | PROVIDERS: PCP Internal Medicine | DX: R41.89 Other symptoms and signs involving cognitive functions and awareness (principal) | CPT/HCPCS: 81003; 99212 ==

== ENCOUNTER 2024-06-20 12:31 | Outpatient (AMB) | payer MEDICARE, SELFPAY ==
[2024-06-20 12:49] VITALS: BP 138/72; PULSE 65; O2SAT 92; BMI 26.3
--- NOTE | 2024-06-20 12:49 | MHC.OFFVIS ---
Vital Signs 06/20/24 12:49 Height 5 ft 3 in Weight 148 lb 9.465 oz BMI 26.3 BP 138/72 Blood Pressure Location Lt brachial Position Sitting Pulse 65 Pulse Source Pulse Oximeter Pulse Oximetry (%) 92 Oxygen Delivery Method Room Air Intake Visit Reasons: f/u osteoporosis Intake Note: Patient present today for Osteoporosis follow up visit. Security Guard Supervisor Required: No Accompanied by: Self / Same As Patient Allergies No Known Allergies [No Known Allergies*] Allergy (Verified 06/20/24 12:53) Medication List - Last Reconciled 06/20/24 by Marco Jiménez MD alendronate 70 mg PO QWEEK atorvastatin 10 mg PO DAILY calcium citrate 500 mg (2 x 250 mg calcium) PO BID 90 days cholecalciferol (vitamin D3) 25 mcg PO DAILY docusate sodium (Colace) 100 mg PO DAILY metoprolol tartrate 12.5 mg (1/2 x 25 mg) PO BID nicotine 1 patch transdermal DAILY vit C,W-Ff-upevc-lutein-zeaxan 250-90-40-1 mg (PreserVision AREDS-2) 1 tab PO BID HPI Comments Details: 79 yo female , for osteoporosis His feeling well, she has no complaints. She denies frequent falls She has been taking calcium citrate 600 mg 2 tablets once a day. She is on vitamin-D 1000 international units daily. She has been adherent with alendronate 70 mg once a week. Her method of administration is correct. On alendronate for 2 yr She reports her balance is okay. She quit smoking on April 2019 She was managed for osteoporosis by Dr Kiana Ward. She was on Prolia she got 3 doses, her prior television cabinet finisher decided that was not needed any more. No prior fractures, no GERD, negative FH of fractures or osteoporosis, no nephrolithiasis, no steroids used, + smoker, no anti seizures medications, no SSRI. She has negative History of head or neck irradiation. Bisphosphonates use: never Calcium intake: calcium 1200 mg bid. Vitamin D:1000 IU daily Herbal medications. none. 04/02/2020 DEXA AP SPINE L2-L3 (excluding L1 and L4): The data of L1-L4 has been changed to exclude the L1 and L4 vertebral bodies, because degenerative change at these levels may cause overestimation of lumbar spine density. Current: BMD 0.938 g/cm2, Z-score -0.5, T-score -2.2, osteopenia, 2.3% increase from previous, 9.3% increase from baseline (<5% change is not significant). Prior: BMD 0.917 g/cm2. Baseline: BMD 0.858 g/cm2. LEFT FEMUR, NECK: Current: BMD 0.784 g/cm2, Z-score 0.1, T-score -1.8, osteopenia. Prior: BMD 0.758 g/cm2. Baseline: BMD 0.675 g/cm2. LEFT FEMUR, TOTAL: Current: BMD 0.854 g/cm2, Z-score 0.5, T-score -1.2, osteopenia, 0.9% increase from previous, 9.3% increase from baseline (<5% change is not significant). Prior: BMD 0.846 g/cm2. Baseline: BMD 0.781 g/cm2. LEFT FOREARM RADIUS 33%: BMD 0.535 g/cm2, Z-score -1.5, T-score -3.9, osteoporosis. Laboratory Tests FINDINGS: 2021 AP SPINE L1-L4: Current: BMD 1.115 g/cm2, Z-score 1.2, T-score -0.5, normal, 8.6% increase from previous, 23.3% increase from baseline (<5% change is not significant). Prior: BMD 1.027 g/cm2. Baseline: BMD 0.904 g/cm2. LEFT FEMUR, NECK: Current: BMD 0.660 g/cm2, Z-score -0.7, T-score -2.7, osteoporosis. Prior: BMD 0.784 g/cm2. Baseline: BMD 0.675 g/cm2. LEFT FEMUR, TOTAL: Current: BMD 0.717 g/cm2, Z-score -0.5, T-score -2.3, osteopenia, 16.0% decrease from previous, 8.2% decrease from baseline (<5% change is not significant). Prior: BMD 0.854 g/cm2. Baseline: BMD 0.781 g/cm2. LEFT FOREARM RADIUS 33%: BMD 0.512 g/cm2, Z-score -1.6, T-score -4.2, osteoporosis, 4.3% decrease from baseline (<5% change is not significant). 10/26/19 01/17/20 05/27/20 11:53 08:13 07:30 Creatinine 1.12 Est GFR (Non-Af Amer) 47 Calcium Albumin N-Telopeptide X-linked 11 25-OH Vitamin D Total PTH Intact 26 05/27/20 09:05 Creatinine Est GFR (Non-Af Amer) Calcium 10.2 Albumin 4.6 N-Telopeptide X-linked 25-OH Vitamin D Total 51.3 PTH Intact Currently on alendronate. 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 Essential hypertension Aneurysm of aortic arch Vitamin D deficiency Osteoporosis Surgical History History of aortic aneurysm repair History of AAA (abdominal aortic aneurysm) repair Hx of colonoscopy Hx of hysterectomy History of surgery Hx of cholecystectomy History of appendectomy Family History Father HTN (hypertension) Mother HTN (hypertension) Social History Household Members: None Housing: Other Housing Other:: Senior housing Alcohol intake: unknown Patient Tobacco Use Status: Current everyday Tobacco user Tobacco use type: Cigarette Cigarettes Per Day: 8 e-Cigarette/Vaping Use: Never Used Advance Directives Date on File: 02/08/23 service: No Current occupational status: retired Cognitive needs: No Hearing needs: No Vision needs: Yes Physical Exam Vital Signs: Last Vital Signs Pulse 65 06/20/24 12:49 BP 138/72 06/20/24 12:49 Pulse Ox 92 06/20/24 12:49 Oxygen Delivery Method Room Air 06/20/24 12:49 BMI result Body Mass Index 26.3 Assessment & Plan Assessment & Plan (1) Osteoporosis: Code(s): M81.0 - Age-related osteoporosis without current pathological fracture Category: Medical Qualifiers: Osteoporosis type: age-related Presence of current pathological fracture: without current pathological fracture Qualified Code(s): M81.0 - Age-related osteoporosis without current pathological fracture Plan: This 77-year-old white female with a history of osteoporosis withcomplete secondary workup being treated with alendronate 70 mg Q weekly. DEXA has been stable. urine NTX did increase but still in premenopausal range Plan is to Continue with alendronate . will check urine NTX in about 6 months' time Orders: Orders Collagen Crosslinks NTX 6 Months M81.0 - Age-related osteoporosis without current pathological fracture Coding Level of Care Code Est Pt Level 3 (93833) Diagnoses Age-related osteoporosis without current pathological fracture M81.0 Osteoporosis type: age-related Presence of current pathological fracture: without current pathological fracture
--- OUTSIDE RECORDS SUMMARY | 2024-06-20 15:12 | XMS_ITS | Data Portability ---
Author Organization [place] - [facility], Allergy Address [address] [address] Care Team Providers Care Financial Consultant Name Role Phone JOHANAJalenNURYS Primary Care Provider Assessment Encounter Date Assessment Date Assessment LastModified [...] Recorded Time Impacted cerumen of bilateral ears [id number] Active 2020 Impacted cerumen, bilateral ; Note: Date Diagnosed : 09/13/2020 12:15 PM (H61.23) [facility] Problem Notes None recorded. Procedures Surgical History Date Name Laterality Status Provider Name and Address Organization Details Recorded Time Cerumen removal without microscope bilat completed MARRY MA PA-C 100 [facility], [place], [address], [place] - [facility] 03/20/2024 13:23:32 Imaging Results None recorded. [...] 70 mg tablet active Medicatio n ID: [id number] Br and Name: alendrona te Send Method: [...] mg chewable tablet active Medicatio n ID: [id number] Br and Name: Aspirin Childrens Send Method: E-Prescri bed Subs Allowed: subs OK Medica tionGener icName: Aspirin Childrens Not Available Not Available Not Available metoprolol tartrate 25 mg tablet TAKE 1/2 (ONE-HALF ) TABLET BY MOUTH TWICE DAILY active Not Available Not Available No t Available PreserVisi on AREDS 4,296 mcg-226 mg-90 mg capsule active Medicatio n ID: [id number] Br and Name: PreserVis ion AREDS Sen d Method: E-Prescri bed Subs Allowed: subs OK Medica tionGener icName: PreserVis ion AREDS Not Available Not Available Not Available Vitals Date Recorded Body height Body mass index (BMI) Body weight Provider Name and Address Organization Details Last Updated DateTime 03/20/2024 160.02 cm 26.6 kg/m2 90075.86 g Blaise Robins [place] - [facility] [place] [facility] 03/20/2024 13:09:00 Social History None recorded. Functional Status None recorded. Mental Status None recorded. Family History Nothing Reported. Medical History No medical history recorded. Gynecological HistoryNo gynecological history recorded. Obstetrics History GPAL:G 0 P 0 0 0 0 Past Encounters Encounter ID Performer Location Encounter Start Date Encounter Closed Date Diagnosis/Indication Diagnosis SNOMED-CT Code Diagnosis ICD10 Code Diagnosis Note [id number] GURINDER MENG MD [facility] 100 [place] [address] 03/20/2024 12:45:18 03/20/2024 13:25:57 Impacted cerumen of bilateral ears [id number] H61.23 Health Concerns Section Related Observation LastModified by Organization Detai ls LastModified Time None Recorded Concern Status LastModified by Organization Details LastModified Time None Recorded Advance Directives Directive None Recorded Payers Encounter Date Sequence Insurance Name Policy Number Policy Mendes Covered Member ID Mendes Member ID Guarantor Name 03/20/[address] [place] [address] [id number] Radha Crews [id number] Radha Crews Notes Date Note Type Note Provider Name and Address Organization Details Recorded Time 03/20/2024 text/html 79 year old female presents for evaluation of ears. Thinks she has a cerumen impaction, feels full. There has been no change in baseline hearing, no otorrha, and no otalgia. GURINDER MENG MD [address] [place] [address], [phone], [facility] - [facility] 03/20/2024 21:06:37 OBGyn Episode No OBEpisode recorded.
== END 2024-06-20 13:11 | disposition home or self-care (01) ==
PROVIDERS: PCP Internal Medicine; Visit Provider Internal Medicine Endocrinology, Diabetes & Metabolism
DX: M81.0 Age-related osteoporosis without current pathological fracture (principal)
CPT/HCPCS: 99213

== ENCOUNTER → 2024-06-20 12:31 | Outpatient (BNVA) | payer MEDICARE, SELFPAY | PROVIDERS: PCP Internal Medicine; Visit Provider Internal Medicine Endocrinology, Diabetes & Metabolism | DX: M81.0 Age-related osteoporosis without current pathological fracture (principal) | CPT/HCPCS: 99212 ==

== ENCOUNTER 2024-06-22 21:39 | Inpatient (IN) | payer MEDICARE, SELFPAY ==
[2024-06-22] VITALS (7 sets, daily range): BP systolic 110–148; BP diastolic 54–67; PULSE 92–118; RESP 16–20; TEMP 37.8–39.3; O2SAT 90–95; BMI 25.8
--- NOTE | 2024-06-22 | ECG_ITS ---
Test Reason : TACHY Blood Pressure : */* mmHG Vent. Rate : 106 BPM Atrial Rate : 106 BPM P-R Int : 134 ms QRS Dur : 94 ms QT Int : 350 ms P-R-T Axes : 72 119 59 degrees QTcB Int : 464 ms Sinus tachycardia Left atrial enlargement Left posterior fascicular block Possible Inferior infarct , age undetermined Abnormal ECG When compared with ECG of 29-Feb-2012 14:14, MANUAL COMPARISON REQUIRED PREVIOUS ECG IS INCOMPATIBLE Referred By: Generic ED Physician Electronically Signed By: Bacilio Rankin
--- NOTE | ~2024-06-22 | CT_ITS ---
EXAMINATION: CT ABDOMEN AND PELVIS WITHOUT CONTRAST CLINICAL INFORMATION: Pyelonephritis, history of stones. COMPARISON: Renal ultrasound 12/18/2021. CT abdomen and pelvis 08/15/2020. TECHNIQUE: Multidetector volumetric imaging was performed from the superior aspect of the liver through the pubic symphysis. Sagittal and coronal reformatted images were obtained on the technologist's workstation. This CT examination was performed using dose optimization techniques as appropriate, variously including the following: *Automated exposure control *Adjustment of mA and/or kV according to patient size (this includes techniques or standardized protocols for targeted exams where dose is matched to indication/reason for exam; i.e. extremities or head) *Use of iterative reconstruction technique FINDINGS: LUNG BASES: There is mild bronchiectasis in both lower lobes. There is mild subpleural scarring present. Lung bases otherwise clear. Borderline cardiac enlargement. There are sternotomy wires. No effusions. Small type I hiatus hernia. LIVER, GALLBLADDER, AND BILIARY TREE: The unenhanced liver is normal in size, shape, and attenuation. No focal hepatic lesion or biliary ductal dilatation is present. The gallbladder is surgically absent. Common duct is normal in caliber. PANCREAS: Unremarkable. SPLEEN: Unremarkable. ADRENAL GLANDS: Mild bilateral hyperplasia. No masses. KIDNEYS AND URETERS: Right kidney: Moderate to severe hydronephrosis and hydroureter. Edema and swelling of the parenchyma. Severe perirenal stranding. Several nonobstructing calculi measuring up to 5 mm. No suspicious lesions allowing for noncontrast appearance. There is right hydroureter present, with a group of stacked stones measuring 10 x 5 mm at the level of the iliac crossover. There is caliber transition at this location. Left kidney: Moderate hydronephrosis and hydroureter. Moderate perirenal stranding. Several nonobstructing calculi measuring up to 4 mm. No suspicious lesions allowing for noncontrast appearance. There is left hydroureter present, with a group of stacked calcifications measuring 6 x 6 mm at the left UVJ. In addition there is approximately 2.0 cm more proximal 4 mm ureteral calculus. BLADDER: Normal appearance. No intraluminal calcifications. GASTROINTESTINAL TRACT: The small bowel is normal in caliber and course. No definite obstruction or wall thickening allowing for noncontrast appearance. Colon demonstrates a somewhat redundant transverse colon. No wall thickening or inflammation is identified. Mild submucosal fat deposition is present in the ascending colon, a nonspecific finding. This can be associated with obesity, inflammatory bowel disease, or steroid use. Mild diverticulosis of the sigmoid colon without inflammation. No rectal abnormality. Type I hiatus hernia. The stomach and duodenum appear normal. PERITONEUM/RETROPERITONEUM: Fat stranding in the right anterior pararenal space from right kidney process. No free air or ascites. Calcified nodule abutting Gerota's fascia in the right superior pararenal space, likely a focus of fat necrosis (series 4, image 55). ABDOMINAL WALL: No significant hernia is appreciated. LYMPH NODES: None enlarged by size criteria. 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 Slightly more distally, there is a small fusiform aneurysm of the distal aorta measuring up to 2.5 cm. No additional aneurysms. PELVIC VISCERA: There has been a hysterectomy. There are no adnexal masses. OSSEOUS STRUCTURES: No suspicious lytic or blastic bone lesions. There is a bone island in the right sacral wing. There is diffuse osteopenia. There are moderate to severe degenerative spondylitic changes of thoracolumbar spine with a mild convex scoliosis. There is chronic wedging of the L1 vertebral body. There are prominent Schmorl's nodes in the endplates particularly at L4-5. Severe facet degeneration noted on the left at L4-5 and L5-S1. Partially imaged sternotomy. There are mild degenerative changes in both hip joints. CT/CT abdomen pelvis wo IV con IMPRESSION: 1. Severe hydronephrosis and hydroureter right kidney secondary to group of obstructing ureteral calculi measuring 10 x 5 mm just distal to the iliac crossover. 2. Moderate hydronephrosis and hydroureter left kidney secondary to a 6 x 6 mm group of obstructing stones at the UVJ. 3. Severe right and moderate left perirenal stranding. 4. There are numerous nonobstructing calculi in both kidneys. 5. 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 See above for further details. 6. Small type I hiatus hernia. 7. Numerous additional ancillary findings as discussed in the body of the report. Electronically signed by: Ethan Richards MD 06/23/2024 12:50 PM [facility]
--- NOTE | ~2024-06-22 | FL_ITS ---
EXAMINATION: FL GUIDANCE ONLY HISTORY: lukas cystoscopy, retrograde, and stent placement COMPARISON: Correlation is made with a CT of the abdomen and pelvis without contrast dated 06/23/2024. TECHNIQUE: Fluoroscopy time: 18.6 seconds. Cumulative Dose: 5.14 mGy. Images: 6. FINDINGS: Images demonstrate a filling defect in the mid to distal right ureter, consistent with the calculus noted on CT. No definite left ureteral calculi are identified, although there is suboptimal opacification of the left ureter. The final images demonstrate bilateral nephroureteral stents in place. FL/FL guidance in OR IMPRESSION: Fluoroscopy during procedure. Please see procedure report for additional information. Electronically signed by: Marco Hernandez MD 06/26/2024 07:22 AM [facility]
--- NOTE | 2024-06-22 22:00 | PC.NURSE ---
straight catheterization for urine sample d/t concerns for urosepsis. aware.
--- OUTSIDE RECORDS SUMMARY | 2024-06-22 22:21 | XMS_ITS | Data Portability ---
Author Organization [place] - [facility], Allergy Address [address] [address] Care Team Providers Care Radio Time Salesperson Name Role Phone JOHANAJalenNURYS Primary Care Provider [...] Recorded Time Impacted cerumen of bilateral ears [id number] Active 2020 Impacted cerumen, bilateral ; Note: Date Diagnosed : 09/13/2020 12:15 PM (H61.23) [facility] Problem Notes None recorded. Procedures Surgical History Date Name Laterality Status Provider Name and Address Organization Details Recorded Time Cerumen removal without microscope bilat completed MARRY MA PA-C 100 [facility], [place], [address], [place] - [facility] 03/20/2024 13:23:32 Imaging Results None recorded. Procedure [...] 70 mg tablet active Medicatio n ID: [id number] Br and Name: alendrona te Send Method: [...] mg chewable tablet active Medicatio n ID: [id number] Br and Name: Aspirin Childrens Send Method: E-Prescri bed Subs Allowed: subs OK Medica tionGener icName: Aspirin Childrens Not Available Not Available Not Available metoprolol tartrate 25 mg tablet TAKE 1/2 (ONE-HALF ) TABLET BY MOUTH TWICE DAILY active Not Available Not Available No t Available PreserVisi on AREDS 4,296 mcg-226 mg-90 mg capsule active Medicatio n ID: [id number] Br and Name: PreserVis ion AREDS Sen d Method: E-Prescri bed Subs Allowed: subs OK Medica tionGener icName: PreserVis ion AREDS Not Available Not Available Not Available Vitals Date Recorded Body height Body mass index (BMI) Body weight Provider Name and Address Organization Details Last Updated DateTime 03/20/2024 160.02 cm 26.6 kg/m2 64312.86 g Blaise Robins [place] - [facility] 03/20/2024 13:09:00 Social History None recorded. Functional Status None recorded. Mental Status None recorded. Family History Nothing Reported. Medical History No medical history recorded. Gynecological HistoryNo gynecological history recorded. Obstetrics History GPAL:G 0 P 0 0 0 0 Past Encounters Encounter ID Performer Location Encounter Start Date Encounter Closed Date Diagnosis/Indication Diagnosis SNOMED-CT Code Diagnosis ICD10 Code Diagnosis Note [id number] GURINDER MENG MD [facility] [address] [place] [address] 03/20/2024 12:45:18 03/20/2024 13:25:57 Impacted cerumen of bilateral ears [id number] H61.23 Health Concerns Section Related Observation LastModified by Organization Detai ls LastModified Time None Recorded Concern Status LastModified by Organization Details LastModified Time None Recorded Advance Directives Directive None Recorded Payers Encounter Date Sequence Insurance Name Policy Number Policy Mendes Covered Member ID Mendes Member ID Guarantor Name 03/20/[address] [place] [address] [id number] Radha Crews [id number] Radha Crews Notes Date Note Type Note Provider Name and Address Organization Details Recorded Time 03/20/2024 text/html 79 year old female presents for evaluation of ears. Thinks she has a cerumen impaction, feels full. There has been no change in baseline hearing, no otorrha, and no otalgia. GURINDER MENG MD [address] [place] [address], [phone], [facility] - [facility] 03/20/2024 21:06:37 OBGyn Episode No OBEpisode recorded.
--- NOTE | 2024-06-22 22:27 | ED.GENADULT ---
HPI - General Adult General Chief complaint: Weakness Stated complaint: weakness, ?uti Time Seen by Provider: 06/22/24 22:19 Source: patient and old records reviewed Mode of arrival: ambulatory Limitations: no limitations History of Present Illness ED Provider: DR. Foreman HPI narrative: 79-year-old female history of hypertension, recurrent kidney stones, stable aortic aneurysm presented to the ED for evaluation of generalized weakness, dysuria, frequency urination, increased urinary urgency. Patient was seen on 06/08/2024 was diagnosed with UTI sent home on Ceftin 250 mg b.i.d. for 7 days. Related Data Home Medications ?Medication ?Instructions ?Recorded ?Confirmed cholecalciferol (vitamin D3) 25 25 mcg PO DAILY 09/19/20 08/11/23 mcg (1,000 unit) capsule vit C 250 mg-vit E 90 mg-zinc 40 1 tab PO BID 01/20/21 08/11/23 mg-copper 1 [id number] capsule (PreserVision AREDS-2) docusate sodium 100 mg capsule 100 mg PO DAILY 10/31/21 08/11/23 (Colace) Previous Rx's ?Medication ?Instructions ?Recorded calcium citrate 500 mg (2 x 250 mg calcium) PO BID 05/31/20 90 days #360 tabs alendronate 70 mg tablet 70 mg PO QWEEK #14 tabs 08/19/23 atorvastatin 10 mg tablet 10 mg PO DAILY #90 tabs 01/12/24 metoprolol tartrate 25 mg tablet 12.5 mg (1/2 x 25 mg) PO BID #90 01/12/24 tabs nicotine 14 mg/24 hr daily 1 patch transdermal DAILY #28 ea 02/22/24 transdermal patch Allergies Allergy/AdvReac Type Severity Reaction Status Date / Time No Known Allergies Allergy Verified 06/22/24 21:55 [No Known Allergies*] Review of Systems Review of Systems: All other systems are reviewed and are negative Constitutional: Reports as per HPI and Reports no additional constitutional complaints Eyes: Reports as per HPI and Reports no additional eye complaints Reports system reviewed and no additional complaints, except as documented Cardiovascular: Reports as per HPI and Reports no additional cardiovascular complaints Respiratory: Reports as per HPI and Reports no additional respiratory complaints Gastrointestinal: Reports as per HPI and Reports no additional gastrointestinal complaints Genitourinary: Reports no additional female genitourinary complaints Musculoskeletal: Reports no additional musculoskeletal complaints Skin/Breast: Reports system reviewed and no additional complaints, except as docu Psychiatric: Reports no additional psychiatric complaints Endocrine: Reports no additional endocrine complaints Hematologic/Lymphatic: Reports no additional hematologic/lymphatic complaints Allergic/Immunologic: Reports no additional allergic/immunologic complaints Reports system reviewed and no additional complaints, except as documented and Reports Abnormal speech present [facility] Past Medical History Medical History Adenomatous colon polyp Smoker unmotivated to quit Recurrent kidney stones Microscopic hematuria Hypertriglyceridemia Encounter for monitoring alendronate therapy Rupture of ovary Pneumothorax, left Right rib fracture Sigmoid diverticulitis 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 Essential hypertension Aneurysm of aortic arch Vitamin D deficiency Osteoporosis Surgical History History of aortic aneurysm repair History of AAA (abdominal aortic aneurysm) repair Hx of colonoscopy Hx of hysterectomy History of surgery Hx of cholecystectomy History of appendectomy Family History Family History Father HTN (hypertension) Mother HTN (hypertension) Social History Social History Household Members: None Housing: Other Housing Other:: Senior housing Alcohol intake: unknown Patient Tobacco Use Status: Current everyday Tobacco user Tobacco use type: Cigarette Cigarettes Per Day: 8 e-Cigarette/Vaping Use: Never Used Advance Directives: Yes Advance Directives on File: Yes Advance Directives Date on File: 02/08/23 Do you have a plan to hurt others: No Plan service: No Current occupational status: retired Cognitive needs: No Hearing needs: No Vision needs: Yes Physical Exam ED Vital Signs: Vital Signs - 24 hr 06/22/24 21:53 Temperature 102.7 F H Pulse Rate 112 H Respiratory Rate 20 Blood Pressure 131/64 Pulse Oximetry 93 Oxygen Delivery Method Room Air BMI result Body Mass Index 25.8 Vital signs have been reviewed and appear to be correct. Blood pressure elevated. Heart rate elevated. Respiratory rate normal. Temperature elevated. Oxygen saturation normal. Appearance: Alert. Oriented X3. No acute distress. Head: Normal external exam. Normocephalic. Atraumatic. No Lu signs noted. No raccoon eyes noted Eyes: PERRLA. EOMI. Conjunctiva and sclera normal. Eyelids normal. ENT: TM's Normal. Pharynx normal. Uvula midline. Moist mucous membranes. No trismus noted. No drooling noted. No muffled voice noted. Neck: Normal inspection. Neck supple. FROM. No adenopathy. Thyroid Normal. No meningeal signs. No neck mass noted. CVS: Normal heart rate and rhythm. Heart sound normal. No murmurs noted. Pulses normal throughout. Respiratory: No respiratory distress. Painless inspiration. Breath sounds normal. No wheezes/rales/rhonchi noted. Chest nontender. No accessory muscle usage noted or decreased air movement noted. Abdomen: Soft and nontender. Bowel sounds normal in all 4 quadrants. No distention noted. No organomegaly noted. No visible injury noted. Back: No CVA tenderness. Full range of motion noted. Skin: Skin warm and dry. Normal skin color. Normal skin turgor. No rashes/lesions/lacerations noted. Extremities: No lower extremity edema. Extremities exhibit normal range of motion. Extremities nontender. Neuro: Oriented X 3. Cranial nerve exam: II-XII are grossly intact No motor deficit. No sensory deficit. Reflexes normal. Course Reevaluation(s) Reevaluation #1: infection and sepsis is suspected now, check blood culture, and lactic acid. IV normal saline and IV ceftriaxone. Time: 22:32 Medications Administered Generic Name Dose Route Start Last Admin Trade Name Freq PRN Reason Stop Dose Admin Enoxaparin Sodium 40 mg 06/22/24 23:00 06/22/24 23:07 Enoxaparin Sodium 40 Mg/0.4 Ml Syringe SUBCUT 40 mg Q24H NAWAF Administration Sodium Chloride 1,000 mls @ 999 mls/hr 06/22/24 22:26 06/22/24 22:35 Ns IV 06/22/24 23:26 999 mls/hr .Q1H1M ONE Administration Discontinued Medications Generic Name Dose Route Start Last Admin Trade Name Freq PRN Reason Stop Dose Admin Ceftriaxone Sodium 1 gm 06/22/24 22:26 06/22/24 22:39 Ceftriaxone Sodium 1 Gm Vial IVPUSH 06/22/24 22:27 1 gm ONCE ONE Administration Acetaminophen 1,000 mg in 100 mls @ 400 mls/hr 06/22/24 22:49 06/22/24 23:07 Ofirmev IV 06/22/24 23:03 400 mls/hr ONCE ONE Administration Medical Decision Making Differential Diagnosis Differential Diagnoses: The differential diagnosis associated with the presentation includes ( UTI, sepsis, electrolyte derangement, dehydration, ERIC, severe anemia.) Admission/Observation Consideration of admission/observation: Escalation of care including admission/observation considered Consult Healthcare Provider Management of the patient was discussed with: Hospitalist (Dr. Figueroa) Lab Data MDM Lab Attestation statement: I reviewed the patient's lab results. 06/22/24 22:20 06/22/24 22:20 Labs: Lab Results 06/22/24 06/22/24 Range/Units 22:20 22:41 WBC 24.9 H (4.8-10.8) X10*3/uL RBC 4.79 (4.20-5.50) X10*6/uL Hgb 14.0 (12.0-16.0) g/dl Hct 41.8 (37.0-47.0) % MCV 87.3 (80.0-98.0) fL MCH 29.2 (27.0-33.0) pg MCHC 33.5 (31.0-35.0) g/dl RDW 14.0 (11.0-16.0) % Plt Count 275 (160-400) X10*3/uL MPV 9.3 L (9.4-12.3) fL Immature Gran % (Auto) 0.8 H (0.0-0.4) % Neut % (Auto) 91.9 H (45-73) % Lymph % (Auto) 1.8 L (20-40) % [place] % (Auto) 5.0 (2-11) % Eos % (Auto) 0.1 (0-4) % Baso % (Auto) 0.4 (0-2) % Lymph # (Auto) 0.5 L (1.2-4.9) X10*3/uL [place] # (Auto) 1.2 (0.1-1.2) X10*3/uL Eos # (Auto) 0.0 (0.0-0.4) X10*3/uL Baso # (Auto) 0.1 (0.0-0.2) X10*3/uL Abs Immat Gran (auto) 0.21 H (0.00-0.03) X10*3/uL Absolute Neuts (auto) 22.9 H (2.0-8.3) x10*3/uL Absolute Nucleated RBC 0.000 (0.0-0.012) X10*3/uL Nucleated RBC % (auto) 0.0 (0.0-0.2) /100WBC Smear Tech's Comments VERIFIED ESR 36 H (0-20) MM/HR Sodium 137 (135-145) mmol/L Potassium 3.6 (3.3-5.1) mmol/L Chloride 104 (96-108) mmol/L Carbon Dioxide 21 L (22-29) mmol/L Anion Gap 16 (12-20) BUN 25 H (9-16) mg/dL Creatinine 1.09 (0.5-1.4) mg/dL Estim Creat Clear Calc 37.6 Estimated GFR 48 Random Glucose 152 H (60-115) mg/dL Lactic Acid 1.1 (0.5-2.0) mmol/L Calcium 9.1 (8.4-10.2) mg/dL Total Bilirubin 1.1 H (0.0-1.0) mg/dL AST 18 (5-31) U/L ALT 8 (0-31) U/L Alkaline Phosphatase 93 (39-117) U/L Troponin I High Sens 10.5 (<3.5-17.0) ng/L Total Protein 7.7 (6.5-8.0) g/dL Albumin 3.6 (3.5-5.0) g/dL Urine Color Yellow Urine Appearance Turbid Urine pH 7.0 (5.0-9.0) Ur Specific [place] 1.010 (1.005-1.025) Urine Protein 300 (3+) H (Neg-Trace) mg/dL Urine Glucose (UA) Negative (Negative) mg/dL Urine Ketones Negative (Negative) mg/dL Urine Blood Large (3+) H (Negative) Urine Nitrite Positive H (Negative) Ur Leukocyte Esterase Large (3+) H (Negative) Discharge Plan Discharge Clinical Impression: Sepsis, Acute UTI Patient Disposition: Admitted As Inpatient
[2024-06-22 22:29] LABS: Basophils Absolute Auto 0.1 X10*3/uL (0.0-0.2); Basophils Percent Auto 0.4 % (0-2); Eosinophils Percent Auto 0.1 % (0-4); Hematocrit 41.8 % (37.0-47.0); Imm Gran Abs Auto 0.21 X10*3/uL (0.00-0.03); Imm Gran Pct Auto 0.8 % (0.0-0.4); Lymphocytes Absolute Auto 0.5 X10*3/uL (1.2-4.9); Lymphocytes Percent Auto 1.8 % (20-40); MANUAL DIFF FLAG SCAN; Mean Corpuscular HGB Conc 33.5 g/dl (31.0-35.0); Mean Corpuscular Hemoglobin 29.2 pg (27.0-33.0); Mean Corpuscular Volume 87.3 fL (80.0-98.0); Mean Platelet Volume 9.3 fL (9.4-12.3); Monocytes Absolute Auto 1.2 X10*3/uL (0.1-1.2); Neutrophils Absolute Auto 22.9 x10*3/uL (2.0-8.3); Neutrophils Percent Auto 91.9 % (45-73); Platelet Count 275 X10*3/uL (160-400); Red Blood Count 4.79 X10*6/uL (4.20-5.50); SCAN SMEAR FLAG 1; White Blood Count 24.9 X10*3/uL (4.8-10.8)
[2024-06-22] MEDS: 0.9 % Sodium Chloride 1,000 ML 999 ML IV (22:35)
[2024-06-22] MEDS: cefTRIAXone sodium 1 GM VIAL IVPUSH (22:39)
[2024-06-22 22:42] LABS: Alanine Aminotransferase 8 U/L (0-31); Albumin Level 3.6 g/dL (3.5-5.0); Alkaline Phosphatase 93 U/L (39-117); Anion Gap 16 (12-20); Aspartate Amino Transferase 18 U/L (5-31); Bilirubin Total 1.1 mg/dL (0.0-1.0); Blood Urea Nitrogen 25 mg/dL (9-16); Calcium 9.1 mg/dL (8.4-10.2); Carbon Dioxide 21 mmol/L (22-29); Chloride 104 mmol/L (96-108); Creatinine Clr Calc Pharmacy 37.6; Estimated Glomerular Filt Rate 48; Glucose Random 152 mg/dL (60-115); Lactic Acid 1.1 mmol/L (0.5-2.0); Potassium 3.6 mmol/L (3.3-5.1); Sodium 137 mmol/L (135-145); Total Protein 7.7 g/dL (6.5-8.0)
[2024-06-22 22:46] LABS: SLIDE REVIEW VERIFIED
[2024-06-22 22:49] LABS: Appearance Urine Turbid; Color Urine Yellow; Glucose Urine UA Negative (Negative); Leukocyte Esterase Urine Large (3+) (Negative); Nitrite Urine Positive (Negative); UMIC TRIGGER UACC YES; Urine Blood Large (3+) (Negative); Urine Ketones Negative (Negative); Urine Protein 300 (3+) mg/dL (Neg-Trace)
[2024-06-22 22:49] LABS: Troponin-I High Sensitivity 10.5 ng/L (<3.5-17.0)
--- NOTE | 2024-06-22 22:50 | MHC.EDTECH ---
Patient BIBA,changed into hospital attire,EKG taken per order and signed by provider, placed pt on the keller machine operator,vitals taken, rectal temp of 102.7, RN at bedside, labs and blood cultures obtained and sent to lab, assisted Kassidy OH with a straight cath,75MLS of pale cloudy urine, urine sample collected and sent to lab, placed a pure wick to keep pt clean and dry, pt tolerated well, call tate in reach
--- NOTE | 2024-06-22 22:51 | P.HPHOSP_ITS ---
History of Present Illness Date of Service: 06/22/24 Chief Complaint: Altered mentation This is a 79-year-old female with pertinent history of hypertension, mixed hyperlipidemia, aortic aneurysm status post repair who was brought to the emergency department for evaluation of altered mentation. Patient was found to be confused as per family members and was not making sense. She does complain of dysuria and increased urinary frequency. She was last seen in the ER on 06/08 and sent home with p.o. cefuroxime after being diagnosed with a acute UTI. Does complain of nausea and chills. No documented temperature. Also with malaise and easy fatigability. No chest pain, palpitations, shortness of breath, abdominal pain, changes in bowel habits. In the emergency department, patient was found to be septic and urine concerning for UTI. 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 Essential hypertension Aneurysm of aortic arch Vitamin D deficiency Osteoporosis Family History Father HTN (hypertension) Mother HTN (hypertension) Surgical History History of aortic aneurysm repair History of AAA (abdominal aortic aneurysm) repair Hx of colonoscopy Hx of hysterectomy History of surgery Hx of cholecystectomy History of appendectomy Social History Household Members: None Housing: Other Housing Other:: Senior housing Alcohol intake: unknown Patient Tobacco Use Status: Current everyday Tobacco user Tobacco use type: Cigarette Cigarettes Per Day: 8 Smoked in Last 30 Days: No e-Cigarette/Vaping Use: Never Used Use of substances other than those prescribed or required for medical reasons: No Advance Directives: Yes Advance Directives on File: Yes Advance Directives Date on File: 02/08/23 Do you have a plan to hurt others: No Plan service: No Current occupational status: retired Cognitive needs: No Hearing needs: No Vision needs: Yes Meds Allergies Allergy/AdvReac Type Severity Reaction Status Date / Time No Known Allergies Allergy Verified 06/22/24 21:55 [No Known Allergies*] Active Medications: Current Medications Sodium Chloride (Ns) 1,000 mls @ 999 mls/hr IV .Q1H1M ONE Stop: 06/22/24 23:26 Last Admin: 06/22/24 22:35 Dose: 999 mls/hr Acetaminophen (Ofirmev) 1,000 mg in 100 mls @ 400 mls/hr IV ONCE ONE Stop: 06/22/24 23:03 Home Medications ?Medication ?Instructions ?Recorded ?Confirmed ?Last Taken ?Type cholecalciferol (vitamin D3) 25 25 mcg PO DAILY 09/19/20 08/11/23 Unknown History mcg (1,000 unit) capsule vit C 250 mg-vit E 90 mg-zinc 40 1 tab PO BID 01/20/21 08/11/23 Unknown History mg-copper 1 [id number] capsule (PreserVision AREDS-2) docusate sodium 100 mg capsule 100 mg PO DAILY 10/31/21 08/11/23 Unknown History (Colace) Physical Exam 2 Vital Signs and Narrative: Vital Signs: Last Vital Signs Temp 102.7 F H 06/22/24 21:53 Pulse 112 H 06/22/24 21:53 Resp 20 06/22/24 21:53 BP 131/64 06/22/24 21:53 Pulse Ox 93 06/22/24 21:53 O2 Del Method Room Air 06/22/24 21:53 BMI result Body Mass Index 25.8 Elderly female lying in bed in no distress Neck supple, no JVD Regular rate and rhythm, S1-S2 heard Regular breath sounds bilaterally, no wheezing or crackles appreciated Abdomen soft nontender, no guarding, no rigidity Patient is awake, alert and oriented x2 ; no focal motor deficit Psych: Normal mood No pedal edema Results Labs 06/22/24 22:20 06/22/24 22:20 Labs: Laboratory Results - last 24 hr 06/22/24 22:20 MCV 87.3 MCH 29.2 MCHC 33.5 RDW 14.0 Plt Count 275 MPV 9.3 L Immature Gran % (Auto) 0.8 H Neut % (Auto) 91.9 H Lymph % (Auto) 1.8 L [place] % (Auto) 5.0 Eos % (Auto) 0.1 Baso % (Auto) 0.4 Lymph # (Auto) 0.5 L [place] # (Auto) 1.2 Eos # (Auto) 0.0 Baso # (Auto) 0.1 Abs Immat Gran (auto) 0.21 H Absolute Neuts (auto) 22.9 H Absolute Nucleated RBC 0.000 Nucleated RBC % (auto) 0.0 Smear Tech's Comments VERIFIED Anion Gap 16 Estim Creat Clear Calc 37.6 Estimated GFR 48 Random Glucose 152 H Lactic Acid 1.1 Calcium 9.1 Total Bilirubin 1.1 H AST 18 ALT 8 Alkaline Phosphatase 93 Total Protein 7.7 Albumin 3.6 Assessment and Plan (1) Sepsis: Status: Acute (2) Acute UTI: Status: Acute Plan This is a 79-year-old female with pertinent history of hypertension, mixed hyperlipidemia, aortic aneurysm status post repair who was brought to the emergency department for evaluation of altered mentation. #. Acute metabolic encephalopathy and sepsis due to acute UTI: Will admit patient with IV ceftriaxone. Monitor mentation. Resuscitated with IV crystalloids. Lactic acid and blood culture obtained. Follow urine culture #. Mixed hyperlipidemia: On statin #. Hypertension: Hold antihypertensives in the setting of sepsis Med rec pending DVT prophylaxis: Lovenox Full code. Discussed with patient and family at bedside Admit as inpatient and will require two night minimum hospital stay for IV antibiotics (as above), which is not possible in a lesser acute setting. Quality Stroke Does the patient have a stroke diagnosis?: No VTE Prior VTE?: No VTE Risk Level:: Medical - moderate - high VTE Device Contraindication: Treatment Not Indicated VTE Drug Contraindication: N/A - Med Ordered
[2024-06-22 23:05] LABS: Erythrocyte Sedimentation Rate 36 MM/HR (0-20)
[2024-06-22] MEDS: Enoxaparin Sodium 40 MG/0.4 ML SYRINGE SUBCUT (23:07)
[2024-06-22] MEDS: Acetaminophen 1,000 MG/100 ML PIGGYBACK 400 MG IV (23:07)
--- NOTE | 2024-06-22 23:18 | PC.NURSE ---
medicated per mar, family at the bedside, pt awaiting to be admitted.
[2024-06-22 23:19] LABS: Bacteria Urine 3+ (None Seen); RBC Urine >20 /HPF (0-2); UACC Culture Trigger YES; WBC Urine >50 /HPF (0-5)
[2024-06-23] VITALS (13 sets, daily range): BP systolic 87–161; BP diastolic 51–79; PULSE 82–118; RESP 16–26; TEMP 35.8–37.8; O2SAT 92–96
--- NOTE | 2024-06-23 00:36 | PC.NURSE ---
Took over care from ADRIANO Yi, at 23:00, pt sleeping at this time not sign of distress. call tate at bedside.
[2024-06-23] MEDS: Nicotine 14 MG PATCH.TD24 TRANSDERMA (03:20)
[2024-06-23] MEDS: 0.9 % Sodium Chloride Flush 3 ML SYRINGE IVFLUSH ×4 (03:24→22:41)
--- NOTE | 2024-06-23 03:25 | PC.NURSE ---
pt repositioned for comfort and medicated per mar.
--- NOTE | 2024-06-23 04:04 | PC.NURSE ---
notified Dr. Figueroa patient shacking, reports being cold with nausea. Awaiting orderers.
[2024-06-23] MEDS: ondansetron HCL 4 MG/2 ML VIAL IVPUSH (04:16)
--- NOTE | 2024-06-23 04:34 | PC.NURSE ---
pt shacking, rectal temp 96.5, pt place on bear gg, Dr. Figueroa notified.
[2024-06-23] MEDS: LORazepam 2 MG/ML VIAL 0.5 MG IVPUSH (04:44)
--- NOTE | 2024-06-23 04:44 | PC.NURSE ---
medicated pt with Ativan, toss bottle in sharp container by accident unable to scan.
[2024-06-23 04:56] LABS: Basophils Absolute Auto 0.1 X10*3/uL (0.0-0.2); Basophils Percent Auto 0.3 % (0-2); Eosinophils Percent Auto 0.1 % (0-4); Hemoglobin 14.9 g/dl (12.0-16.0); Imm Gran Abs Auto 0.16 X10*3/uL (0.00-0.03); Imm Gran Pct Auto 0.7 % (0.0-0.4); Lymphocytes Percent Auto 4.1 % (20-40); MANUAL DIFF FLAG SCAN; Mean Corpuscular HGB Conc 33.1 g/dl (31.0-35.0); Mean Corpuscular Hemoglobin 29.3 pg (27.0-33.0); Mean Corpuscular Volume 88.6 fL (80.0-98.0); Mean Platelet Volume 9.5 fL (9.4-12.3); Monocytes Absolute Auto 0.4 X10*3/uL (0.1-1.2); Monocytes Percent Auto 1.8 % (2-11); Neutrophils Absolute Auto 22.2 x10*3/uL (2.0-8.3); Platelet Count 276 X10*3/uL (160-400); Red Blood Count 5.08 X10*6/uL (4.20-5.50); Red Cell Distribution Width 14.1 % (11.0-16.0); SCAN SMEAR FLAG 1; White Blood Count 23.9 X10*3/uL (4.8-10.8)
[2024-06-23 05:14] LABS: Anion Gap 17 (12-20); Blood Urea Nitrogen 23 mg/dL (9-16); Calcium 9.3 mg/dL (8.4-10.2); Carbon Dioxide 19 mmol/L (22-29); Chloride 108 mmol/L (96-108); Creatinine Clr Calc Pharmacy 38.3; Estimated Glomerular Filt Rate 49; Glucose Random 145 mg/dL (60-115); Potassium 3.9 mmol/L (3.3-5.1); Sodium 140 mmol/L (135-145)
--- NOTE | 2024-06-23 05:43 | PC.NURSE ---
pt taken off bear hugger, pt rectal temp 97.5. pt no longer shacking or reporting she cold. pt reposition for comfort. 800 urine out put, pure wick in place and working.
--- NOTE | 2024-06-23 08:28 | P.PNIM_ITS ---
Subjective Subjective Date of Service: 06/23/24 Interval History: weakness, right flnak pain Physical Exam 2 Vital Signs: Vital Signs: Last Vital Signs Temp 99.2 F 06/23/24 07:28 Pulse 105 H 06/23/24 07:28 Resp 24 H 06/23/24 07:28 BP 121/64 06/23/24 07:28 Pulse Ox 94 06/23/24 07:28 O2 Del Method Nasal Cannula 06/23/24 07:28 O2 Flow Rate 3 06/23/24 07:28 BMI result Body Mass Index 25.[address] and diagnosis, sluggish in responses, ill-appearing, mild right flank tenderness Objective Data Active Medications Acetaminophen (Acetaminophen 325 Mg Tablet) 650 mg PO Q6H PRN PRN Reason: Pain, Mild 1-3,fever,headache Calcium Carbonate (Calcium Carbonate 750 Mg Tab.Chew) 750 mg PO Q4H PRN PRN Reason: Heartburn Ceftriaxone Sodium (Ceftriaxone Sodium 1 Gm Vial) 1 gm IVPUSH Q24H [facility] Enoxaparin Sodium (Enoxaparin Sodium 40 Mg/0.4 Ml Syringe) 40 mg SUBCUT Q24H [facility] Last Admin: 06/22/24 23:07 Dose: 40 mg Documented By: THOMAS Magnesium Hydroxide (Milk Of Magnesia 30 Ml Oral.Susp) 30 ml PO DAILY PRN PRN Reason: Constipation Melatonin (Melatonin 3 Mg Tablet) 6 mg PO BEDTIME PRN PRN Reason: Insomnia Ondansetron HCl (Ondansetron Hcl 4 Mg/2 Ml Vial) 4 mg IVPUSH Q8H PRN PRN Reason: Nausea and Vomiting Last Admin: 06/23/24 04:16 Dose: 4 mg Documented By: THOMAS Sodium Chloride (0.9 % Sodium Chloride Flush 3 Ml Syringe) 3 ml IVFLUSH QSHIFT [facility] Last Admin: 06/23/24 07:28 Dose: 3 ml Documented By: EVELINE Labs 06/23/24 04:40 06/23/24 04:40 Labs: Laboratory Results - last 24 hr 06/22/24 06/22/24 06/23/24 22:20 22:41 04:40 MCV 87.3 88.6 MCH 29.2 29.3 MCHC 33.5 33.1 RDW 14.0 14.1 Plt Count 275 276 MPV 9.3 L 9.5 Immature Gran % (Auto) 0.8 H 0.7 H Neut % (Auto) 91.9 H 93.0 H Lymph % (Auto) 1.8 L 4.1 L [place] % (Auto) 5.0 1.8 L Eos % (Auto) 0.1 0.1 Baso % (Auto) 0.4 0.3 Lymph # (Auto) 0.5 L 1.0 L [place] # (Auto) 1.2 0.4 Eos # (Auto) 0.0 0.0 Baso # (Auto) 0.1 0.1 Abs Immat Gran (auto) 0.21 H 0.16 H Absolute Neuts (auto) 22.9 H 22.2 H Absolute Nucleated RBC 0.000 0.000 Nucleated RBC % (auto) 0.0 0.0 Smear Tech's Comments VERIFIED ESR 36 H Anion Gap 16 17 Estim Creat Clear Calc 37.6 38.3 Estimated GFR 48 49 Random Glucose 152 H 145 H Lactic Acid 1.1 Calcium 9.1 9.3 Total Bilirubin 1.1 H AST 18 ALT 8 Alkaline Phosphatase 93 Total Protein 7.7 Albumin 3.6 Urine Color Yellow Urine Appearance Turbid Urine pH 7.0 Ur Specific [place] 1.010 Urine Protein 300 (3+) H Urine Glucose (UA) Negative Urine Ketones Negative Urine Blood Large (3+) H Urine Nitrite Positive H Ur Leukocyte Esterase Large (3+) H Urine RBC >20 H Urine WBC >50 Ur Squamous Epith Cells 6-10 Urine Bacteria 3+ Hyaline Casts 3-5 Assessment and Plan (1) Essential hypertension: Status: Acute Plan 79F PMH hypertension, hyperlipidemia, aortic aneurysm status post repair, nephrolithiasis presented with altered mental status Sepsis and acute metabolic encephalopathy due to urinary tract infection IV ceftriaxone, follow up cultures, CT abdomen Hypertension Metoprolol Hyperlipidemia Statin DVT prophylaxis with Lovenox Full Code reason for continued hospitalization: Awaiting cultures Quality Stroke Does the patient have a stroke diagnosis?: No VTE Prior VTE?: No VTE Risk Level:: Medical - moderate - high VTE Device Contraindication: Treatment Not Indicated VTE Drug Contraindication: N/A - Med Ordered
--- NOTE | 2024-06-23 11:35 | PHA.MEDREC ---
Addendum entered by Wilber Boykin 06/23/24 11:56: Spoke with patient and she confirmed she is still taking the PreserVision AREDS-2, 1 tab twice a day. She also confirmed she last took her medications yesterday morning. Addendum entered by Tiana Lewis RPh 06/23/24 11:42: Reviewed by [facility] Original Note: Pharmacy Consult ? Medication Reconciliation Pharmacy has completed the medication reconciliation. Went and spoke with patient this am who was only able to confirm 3 medications before falling back asleep while talking to me. I went back a bit later to find family in the patients room and pt in CT. One of the patients daughters at bedside was able to confirm the the medications her mom confirmed and the remainder of the medications except for the PreserVision AREDS-2; she was not sure if her mom was still on it and her siblings at bedside were not sure either. She did not know the last time her mom took her medications. I will go back to confirm with the patient the PreserVision AREDS-2 and last time she took her medications.
[2024-06-23] MEDS: 0.9 % Sodium Chloride 500 ML IV (12:50)
[2024-06-23] MEDS: 0.9 % Sodium Chloride 500 ML 999 ML IV (14:06)
--- NOTE | 2024-06-23 14:43 | MHC.CM.PN ---
CM assessment completed w/ daughter Rosa via telephone. Patient w/ difficulty maintaining wakefulness. IMM delivered. Patient lives in an apartment alone in elderly housing. Per daughter patient is functionally independent. Denies use of DME or services. PCP [facility] on file. Daughter reports patient has an HCP naming [facility] 1) daughter Rosa Clayton and 2) son Edward Crews. Copy requested. Daughter also reports patient has had increased stress and anxiety, as son w/ recent dx cancer. Patient was referred to a therapist and is on a wait list for appt. DP: Anticipate PT eval. Home w/ services vs STR. No preference to agency or facility. [facility] referrals sent via [facility]port. Daughter to transport. CM will continue to follow.
--- NOTE | 2024-06-23 14:53 | PM.UROCN ---
History of Present Illness Consult details Consult date: 06/23/24 Narrative: CC: Bilateral obstructing ureteric stones 79-year-old female Recurrent stone former Brought to emergency room secondary to altered mental status Had been found to be confused by family members Complaining of dysuria with increased urinary frequency. Initially seen in ER on 06/08 and diagnosed with UTI sent home on p.o. cefuroxime Imaging - Severe hydronephrosis and hydroureter right kidney secondary to group of obstructing ureteral calculi measuring 10 x 5 mm just distal to the iliac crossover. 2. Moderate hydronephrosis and hydroureter left kidney secondary to a 6 x 6 mm group of obstructing stones at the UVJ. Calcium 9.3, creatinine 1.1, WBC 23.9 Has been given IV antibiotics Recommend intervention with cystoscopy, bilateral retrograde, bilateral stent placement Review of Systems Constitutional: Constitutional: Reports as per HPI and Reports no additional constitutional complaints Cardiovascular: Cardiovascular: Reports as per HPI and Reports no additional cardiovascular complaints Respiratory: Respiratory: Reports as per HPI and Reports no additional respiratory complaints Gastrointestinal: Gastrointestinal: Reports as per HPI and Reports no additional gastrointestinal complaints Genitourinary: Genitourinary: Reports as per HPI Musculoskeletal: Musculoskeletal: Reports no additional musculoskeletal complaints and Reports as per HPI Neurologic: Reports system reviewed and no additional complaints, except as documented and Reports as per HPI PMF Past Medical History Medical History Adenomatous colon polyp Smoker unmotivated to quit Recurrent kidney stones Microscopic hematuria Hypertriglyceridemia Encounter for monitoring alendronate therapy Rupture of ovary Pneumothorax, left Right rib fracture Sigmoid diverticulitis 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 Essential hypertension Aneurysm of aortic arch Vitamin D deficiency Osteoporosis Family History Family History Father HTN (hypertension) Mother HTN (hypertension) Surgical History Surgical History History of aortic aneurysm repair History of AAA (abdominal aortic aneurysm) repair Hx of colonoscopy Hx of hysterectomy History of surgery Hx of cholecystectomy History of appendectomy Social History Social History Household Members: None Housing: Apartment Housing Other:: Senior housing Do you presently have visiting nurse or other home services: No Alcohol intake: unknown Patient Tobacco Use Status: Current everyday Tobacco user Tobacco use type: Cigarette Cigarettes Per Day: 9 e-Cigarette/Vaping Use: Never Used Advance Directives Date on File: 02/08/23 service: No Current occupational status: retired Cognitive needs: No Hearing needs: No Vision needs: Yes Meds Allergies Allergy/AdvReac Type Severity Reaction Status Date / Time No Known Allergies Allergy Verified 06/22/24 21:55 [No Known Allergies*] Active Medications: Current Medications Acetaminophen (Acetaminophen 325 Mg Tablet) 650 mg PO Q6H PRN PRN Reason: Pain, Mild 1-3,fever,headache Atorvastatin Calcium (Atorvastatin Calcium 10 Mg Tablet) 10 mg PO DAILY [facility] Calcium Carbonate (Calcium Carbonate 750 Mg Tab.Chew) 750 mg PO Q4H PRN PRN Reason: Heartburn Ceftriaxone Sodium (Ceftriaxone Sodium 1 Gm Vial) 1 gm IVPUSH Q24H [facility] Docusate Sodium (Docusate Sodium 100 Mg Capsule) 100 mg PO DAILY [facility] Enoxaparin Sodium (Enoxaparin Sodium 40 Mg/0.4 Ml Syringe) 40 mg SUBCUT Q24H [facility] Last Admin: 06/22/24 23:07 Dose: 40 mg Magnesium Hydroxide (Milk Of Magnesia 30 Ml Oral.Susp) 30 ml PO DAILY PRN PRN Reason: Constipation Melatonin (Melatonin 3 Mg Tablet) 6 mg PO BEDTIME PRN PRN Reason: Insomnia Metoprolol Tartrate (Metoprolol Tartrate 12.5 Mg Halftab) 12.5 mg PO BID [facility]; Protocol Multivitamins/Vitamin C (Multivitamin Tablet) 1 tab PO DAILY [facility] Ondansetron HCl (Ondansetron Hcl 4 Mg/2 Ml Vial) 4 mg IVPUSH Q8H PRN PRN Reason: Nausea and Vomiting Last Admin: 06/23/24 04:16 Dose: 4 mg Sodium Chloride (0.9 % Sodium Chloride Flush 3 Ml Syringe) 3 ml IVFLUSH QSHIFT [facility] Last Admin: 06/23/24 07:28 Dose: 3 ml Vitamin D (Cholecalciferol (Vitamin D3) 25 Mcg Tablet) 25 mcg PO DAILY [facility] Home Medications ?Medication ?Instructions ?Recorded ?Confirmed ?Last Taken ?Type cholecalciferol (vitamin D3) 25 25 mcg PO DAILY 09/19/20 06/23/24 Unknown History mcg (1,000 unit) capsule vit C 250 mg-vit E 90 mg-zinc 40 1 tab PO BID 01/20/21 06/23/24 Unknown History mg-copper 1 [id number] capsule (PreserVision AREDS-2) docusate sodium 100 mg capsule 100 mg PO DAILY 10/31/21 06/23/24 Unknown History (Colace) Physical Exam Vital Signs: Vital Signs: Last Vital Signs Temp 97.7 F 06/23/24 13:58 Pulse 84 06/23/24 13:58 Resp 20 06/23/24 13:58 BP 92/53 L 06/23/24 13:58 Pulse Ox 95 06/23/24 13:58 O2 Del Method Nasal Cannula 06/23/24 13:58 O2 Flow Rate 1 06/23/24 13:58 BMI result Body Mass Index 25.8 Const: General: cooperative, healthy appearing, comfortable and no acute distress Orientation/consciousness: patient oriented x3 HEENT: Face and sinus: Yes normal facial exam Mouth: moist mucous membranes Neck: Neck: Yes normal visual inspection, Yes full ROM and Yes trachea midline Chest: Chest palpation & inspection: normal inspection of the chest Resp: Effort & Inspection: normal respiratory effort, able to speak in complete sentences and no respiratory distress GI: Inspection: Yes normal to inspection Back/Spine/Pelvis: Cervical Spine: normal cervical lordosis Thoracic/Lumbar Spine: thoracic and lumbar spine normal to inspection Skin: General skin exam: no rashes or lesions noted Neuro: General: patient oriented x3, tone normal and moves all extremities Extrem: General: Yes normal to inspection and Yes capillary refill normal Results Labs 06/23/24 04:40 06/23/24 04:40 Labs: Abnormal lab results 06/22/24 06/22/24 06/23/24 Range/Units 22:20 22:41 04:40 WBC 24.9 H 23.9 H (4.8-10.8) X10*3/uL MPV 9.3 L (9.4-12.3) fL Immature Gran % (Auto) 0.8 H 0.7 H (0.0-0.4) % Neut % (Auto) 91.9 H 93.0 H (45-73) % Lymph % (Auto) 1.8 L 4.1 L (20-40) % [place] % (Auto) 1.8 L (2-11) % Lymph # (Auto) 0.5 L 1.0 L (1.2-4.9) X10*3/uL Abs Immat Gran (auto) 0.21 H 0.16 H (0.00-0.03) X10*3/uL Absolute Neuts (auto) 22.9 H 22.2 H (2.0-8.3) x10*3/uL ESR 36 H (0-20) MM/HR Carbon Dioxide 21 L 19 L (22-29) mmol/L BUN 25 H 23 H (9-16) mg/dL Random Glucose 152 H 145 H (60-115) mg/dL Total Bilirubin 1.1 H (0.0-1.0) mg/dL Urine Protein 300 (3+) H (Neg-Trace) mg/dL Urine Blood Large (3+) H (Negative) Urine Nitrite Positive H (Negative) Ur Leukocyte Esterase Large (3+) H (Negative) Urine RBC >20 H (0-2) /HPF Short CBC 06/22/24 06/23/24 Range/Units 22:20 04:40 WBC 24.9 H 23.9 H (4.8-10.8) X10*3/uL Hgb 14.0 14.9 (12.0-16.0) g/dl Hct 41.8 45.0 (37.0-47.0) % Plt Count 275 276 (160-400) X10*3/uL BMP 06/22/24 06/23/24 22:20 04:40 Sodium 137 140 Potassium 3.6 3.9 Chloride 104 108 Carbon Dioxide 21 L 19 L BUN 25 H 23 H Creatinine 1.09 1.07 Calcium 9.1 9.3 Liver Function 06/22/24 Range/Units 22:20 Total Bilirubin 1.1 H (0.0-1.0) mg/dL AST 18 (5-31) U/L ALT 8 (0-31) U/L Alkaline Phosphatase 93 (39-117) U/L Albumin 3.6 (3.5-5.0) g/dL Urine 06/22/24 Range/Units 22:41 Urine Color Yellow Urine Appearance Turbid Urine pH 7.0 (5.0-9.0) Ur Specific [place] 1.010 (1.005-1.025) Urine Protein 300 (3+) H (Neg-Trace) mg/dL Urine Glucose (UA) Negative (Negative) mg/dL All other labs normal. Assessment and Plan (1) Recurrent kidney stones: Status: Acute (2) Ureteric calculus: Status: Acute Plan Risks, benefits and alternatives to therapy were discussed. These include but are not limited to infection, bleeding, damage to local organs and tissues, need for further interventions. Anesthetic risks regarding cardiac arrhythmia, blood clots, and potential mortality were discussed. The patient understands the typical recovery time and the outpatient nature of the procedure. After consideration of these risks the patient gives full informed consent and they wish to move ahead with the procedure. Cystoscopy, bilateral retrograde, bilateral stent placement Procedures Date of Service Date of Service: 06/23/24
[2024-06-23] MEDS: Albumin Human 25 % 100 ML 133.33 ML IV ×2 (16:34→17:33)
--- NOTE | 2024-06-23 19:37 | PC.NURSE ---
Hypotensive 87/51. Pt asymptomatic.Dr. Bernstein notified. 500cc NS bolus ordered and given. REpeat BP 92/53. Dr. Bernstein ordered an additional 500cc NS bolus. Repeat BP 113/58. 2 bags IV albumin ordered and given.
[2024-06-23] MEDS: Metoprolol Tartrate 12.5 MG HALFTAB PO (21:02)
--- NOTE | 2024-06-23 21:55 | PM.EVENT ---
Event Note Date of Service: 06/23/24 Event Note: Lab reported: has a positive blood culture it's GNR . Will increase ceftriaxone to 2 g daily Time Spent With Patient Time: Total time managing care of this patient today ____ minutes.
[2024-06-23] MEDS: Enoxaparin Sodium 40 MG/0.4 ML SYRINGE SUBCUT (22:35)
[2024-06-23] MEDS: cefTRIAXone sodium 2 GM VIAL IVPUSH (22:35)
[2024-06-24] VITALS (12 sets, daily range): BP systolic 93–130; BP diastolic 40–64; PULSE 78–94; RESP 16–18; TEMP 36.2–37.6; O2SAT 91–95
[2024-06-24] MEDS: Nicotine 14 MG PATCH.TD24 TRANSDERMA (03:33)
[2024-06-24 07:23] LABS: Anion Gap 14 (12-20); Blood Urea Nitrogen 34 mg/dL (9-16); Calcium 8.7 mg/dL (8.4-10.2); Carbon Dioxide 22 mmol/L (22-29); Chloride 109 mmol/L (96-108); Creatinine Clr Calc Pharmacy 28.6; Estimated Glomerular Filt Rate 35; Glucose Random 109 mg/dL (60-115); Potassium 3.4 mmol/L (3.3-5.1); Sodium 142 mmol/L (135-145)
[2024-06-24 07:46] LABS: Hematocrit 33.2 % (37.0-47.0); Hemoglobin 10.9 g/dl (12.0-16.0); Mean Corpuscular HGB Conc 32.8 g/dl (31.0-35.0); Mean Corpuscular Hemoglobin 29.5 pg (27.0-33.0); Mean Corpuscular Volume 89.7 fL (80.0-98.0); Mean Platelet Volume 10.1 fL (9.4-12.3); Platelet Count 204 X10*3/uL (160-400); Red Cell Distribution Width 14.7 % (11.0-16.0); White Blood Count 16.2 X10*3/uL (4.8-10.8)
[2024-06-24] MEDS: Metoprolol Tartrate 12.5 MG HALFTAB PO ×2 (08:33→20:40)
[2024-06-24] MEDS: Docusate Sodium 100 MG CAPSULE PO (08:33)
[2024-06-24] MEDS: Atorvastatin Calcium 10 MG TABLET PO (08:33)
[2024-06-24] MEDS: Cholecalciferol (Vitamin D3) 25 MCG TABLET PO (08:33)
[2024-06-24] MEDS: 0.9 % Sodium Chloride Flush 3 ML SYRINGE IVFLUSH ×3 (08:34→22:42)
[2024-06-24] MEDS: Multivitamin TABLET 1 TAB PO (08:34)
--- NOTE | 2024-06-24 09:17 | P.PNIM_ITS ---
Subjective Subjective Date of Service: 06/24/24 Interval History: weakness Physical Exam 2 Vital Signs: Vital Signs: Last Vital Signs Temp 98.2 F 06/24/24 07:58 Pulse 88 06/24/24 07:58 Resp 18 06/24/24 07:58 BP 128/59 L 06/24/24 07:58 Pulse Ox 93 06/24/24 07:58 O2 Del Method Nasal Cannula 06/24/24 07:58 O2 Flow Rate 2 06/24/24 07:58 BMI result Body Mass Index 25.8 Const: General: cooperative, healthy appearing, comfortable and no acute distress Orientation/consciousness: patient oriented x3 HEENT: Face and sinus: Yes normal facial exam Mouth: moist mucous membranes Neck: Neck: Yes normal visual inspection, Yes full ROM and Yes trachea midline Chest: Chest palpation & inspection: normal inspection of the chest Resp: Effort & Inspection: normal respiratory effort, able to speak in complete sentences and no respiratory distress GI: Inspection: Yes normal to inspection Back/Spine/Pelvis: Cervical Spine: normal cervical lordosis Thoracic/Lumbar Spine: thoracic and lumbar spine normal to inspection Skin: General skin exam: no rashes or lesions noted Neuro: General: patient oriented x3, tone normal and moves all extremities Extrem: General: Yes normal to inspection and Yes capillary refill normal Objective Data Active Medications Acetaminophen (Acetaminophen 325 Mg Tablet) 650 mg PO Q6H PRN PRN Reason: Pain, Mild 1-3,fever,headache Atorvastatin Calcium (Atorvastatin Calcium 10 Mg Tablet) 10 mg PO DAILY [facility] Last Admin: 06/24/24 08:33 Dose: 10 mg Documented By: JEMAL Calcium Carbonate (Calcium Carbonate 750 Mg Tab.Chew) 750 mg PO Q4H PRN PRN Reason: Heartburn Ceftriaxone Sodium (Ceftriaxone Sodium 2 Gm Vial) 2 gm IVPUSH Q24H [facility] Last Admin: 06/23/24 22:35 Dose: 2 gm Documented By: FIFI Docusate Sodium (Docusate Sodium 100 Mg Capsule) 100 mg PO DAILY [facility] Last Admin: 06/24/24 08:33 Dose: 100 mg Documented By: JEMAL Enoxaparin Sodium (Enoxaparin Sodium 40 Mg/0.4 Ml Syringe) 40 mg SUBCUT Q24H [facility] Last Admin: 06/23/24 22:35 Dose: 40 mg Documented By: FIFI Magnesium Hydroxide (Milk Of Magnesia 30 Ml Oral.Susp) 30 ml PO DAILY PRN PRN Reason: Constipation Melatonin (Melatonin 3 Mg Tablet) 6 mg PO BEDTIME PRN PRN Reason: Insomnia Metoprolol Tartrate (Metoprolol Tartrate 12.5 Mg Halftab) 12.5 mg PO BID [facility]; Protocol Last Admin: 06/24/24 08:33 Dose: 12.5 mg Documented By: JEMAL Multivitamins/Vitamin C (Multivitamin Tablet) 1 tab PO DAILY [facility] Last Admin: 06/24/24 08:34 Dose: 1 tab Documented By: JEMAL Ondansetron HCl (Ondansetron Hcl 4 Mg/2 Ml Vial) 4 mg IVPUSH Q8H PRN PRN Reason: Nausea and Vomiting Last Admin: 06/23/24 04:16 Dose: 4 mg Documented By: THOMAS Sodium Chloride (0.9 % Sodium Chloride Flush 3 Ml Syringe) 3 ml IVFLUSH QSHIFT [facility] Last Admin: 06/24/24 08:34 Dose: 3 ml Documented By: JEMAL Vitamin D (Cholecalciferol (Vitamin D3) 25 Mcg Tablet) 25 mcg PO DAILY [facility] Last Admin: 06/24/24 08:33 Dose: 25 mcg Documented By: JEMAL Labs 06/24/24 05:58 06/24/24 05:58 Labs: Laboratory Results - last 24 hr 06/24/24 05:58 MCV 89.7 MCH 29.5 MCHC 32.8 RDW 14.7 Plt Count 204 D MPV 10.1 Absolute Nucleated RBC 0.000 Nucleated RBC % (auto) 0.0 Anion Gap 14 Estim Creat Clear Calc 28.6 Estimated GFR 35 Random Glucose 109 Calcium 8.7 D Microbiology Microbiology Results: Microbiology 06/22/24 22:21 Blood Culture - Preliminary Blood - Venous Prelim: GNR Gram Stain only 06/22/24 22:20 Blood Culture - Preliminary Blood - Venous No growth after 24 hours. Assessment and Plan (1) Essential hypertension: Status: Acute Plan 79F PMH hypertension, hyperlipidemia, aortic aneurysm status post repair, nephrolithiasis presented with altered mental status Sepsis and acute metabolic encephalopathy due to urinary tract infection complicated by GNR bacteremia due to bilateral obstructing stone with hydronephrosis and ERIC IV ceftriaxone, follow up cultures appreciated, plan for cystoscopy today Hypertension Metoprolol acute hypoxic respiratory failure due to underlying copd with increased demand from infection wean o2 as tolerated Hyperlipidemia Statin DVT prophylaxis with Lovenox Full Code reason for continued hospitalization: Awaiting cultures Quality Stroke Does the patient have a stroke diagnosis?: No VTE Prior VTE?: No VTE Risk Level:: Medical - moderate - high VTE Device Contraindication: Treatment Not Indicated VTE Drug Contraindication: N/A - Med Ordered
--- NOTE | 2024-06-24 10:23 | P.CONAN_ITS ---
[facility] Active Problems Active Problems: All Active Problems Ureteric calculus (Acute) Acute UTI (Acute) Sepsis (Acute) Adenomatous colon polyp (Acute) Recurrent kidney stones (Acute) Hypertriglyceridemia (Acute) Essential hypertension (Acute) Aneurysm of aortic arch (Acute) Vitamin D deficiency (Acute) Osteoporosis (Acute) Past Medical History Medical History Adenomatous colon polyp Smoker unmotivated to quit Recurrent kidney stones Microscopic hematuria Hypertriglyceridemia Encounter for monitoring alendronate therapy Rupture of ovary Pneumothorax, left Right rib fracture Sigmoid diverticulitis 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 Essential hypertension Aneurysm of aortic arch Vitamin D deficiency Osteoporosis Functional capacity: independent ambulation Patient : No Family History Family History Father HTN (hypertension) Mother HTN (hypertension) Family history of problems with anesthesia: No Surgical History Surgical History History of aortic aneurysm repair History of AAA (abdominal aortic aneurysm) repair Hx of colonoscopy Hx of hysterectomy History of surgery Hx of cholecystectomy History of appendectomy History of Problems with Anesthesia: No Social History Social History Household Members: None Housing: Apartment Housing Other:: Senior housing Do you presently have visiting nurse or other home services: No Alcohol intake: unknown Patient Tobacco Use Status: Current everyday Tobacco user Tobacco use type: Cigarette Cigarettes Per Day: 9 e-Cigarette/Vaping Use: Never Used Advance Directives Date on File: 02/08/23 service: No Current occupational status: retired Cognitive needs: No Hearing needs: No Vision needs: Yes Meds Allergies Allergy/AdvReac Type Severity Reaction Status Date / Time No Known Allergies Allergy Verified 06/22/24 21:55 [No Known Allergies*] Active Medications: Current Medications Acetaminophen (Acetaminophen 325 Mg Tablet) 650 mg PO Q6H PRN PRN Reason: Pain, Mild 1-3,fever,headache Atorvastatin Calcium (Atorvastatin Calcium 10 Mg Tablet) 10 mg PO DAILY [facility] Last Admin: 06/24/24 08:33 Dose: 10 mg Calcium Carbonate (Calcium Carbonate 750 Mg Tab.Chew) 750 mg PO Q4H PRN PRN Reason: Heartburn Ceftriaxone Sodium (Ceftriaxone Sodium 2 Gm Vial) 2 gm IVPUSH Q24H [facility] Last Admin: 06/23/24 22:35 Dose: 2 gm Docusate Sodium (Docusate Sodium 100 Mg Capsule) 100 mg PO DAILY [facility] Last Admin: 06/24/24 08:33 Dose: 100 mg Enoxaparin Sodium (Enoxaparin Sodium 40 Mg/0.4 Ml Syringe) 40 mg SUBCUT Q24H [facility] Last Admin: 06/23/24 22:35 Dose: 40 mg Magnesium Hydroxide (Milk Of Magnesia 30 Ml Oral.Susp) 30 ml PO DAILY PRN PRN Reason: Constipation Melatonin (Melatonin 3 Mg Tablet) 6 mg PO BEDTIME PRN PRN Reason: Insomnia Metoprolol Tartrate (Metoprolol Tartrate 12.5 Mg Halftab) 12.5 mg PO BID [facility]; Protocol Last Admin: 06/24/24 08:33 Dose: 12.5 mg Multivitamins/Vitamin C (Multivitamin Tablet) 1 tab PO DAILY [facility] Last Admin: 06/24/24 08:34 Dose: 1 tab Ondansetron HCl (Ondansetron Hcl 4 Mg/2 Ml Vial) 4 mg IVPUSH Q8H PRN PRN Reason: Nausea and Vomiting Last Admin: 06/23/24 04:16 Dose: 4 mg Sodium Chloride (0.9 % Sodium Chloride Flush 3 Ml Syringe) 3 ml IVFLUSH QSHIFT [facility] Last Admin: 06/24/24 08:34 Dose: 3 ml Vitamin D (Cholecalciferol (Vitamin D3) 25 Mcg Tablet) 25 mcg PO DAILY [facility] Last Admin: 06/24/24 08:33 Dose: 25 mcg Home Medications ?Medication ?Instructions ?Recorded ?Confirmed ?Last Taken ?Type cholecalciferol (vitamin D3) 25 25 mcg PO DAILY 09/19/20 06/23/24 Unknown History mcg (1,000 unit) capsule vit C 250 mg-vit E 90 mg-zinc 40 1 tab PO BID 01/20/21 06/23/24 Unknown History mg-copper 1 [id number] capsule (PreserVision AREDS-2) docusate sodium 100 mg capsule 100 mg PO DAILY 10/31/21 06/23/24 Unknown History (Colace) Exam Height,Weight and Vital Signs: Height 5 ft 3 in Weight 66.1 kg Last Vital Signs Temp 98.2 F 06/24/24 07:58 Pulse 88 06/24/24 07:58 Resp 18 06/24/24 07:58 BP 128/59 L 06/24/24 07:58 Pulse Ox 93 06/24/24 07:58 O2 Del Method Nasal Cannula 06/24/24 07:58 O2 Flow Rate 2 06/24/24 07:58 Pertinent Lab Results Pertinent Lab Results: Laboratory Tests 06/22/24 06/22/24 06/23/24 22:20 22:41 04:40 WBC 24.9 H 23.9 H RBC 4.79 5.08 Hgb 14.0 14.9 Hct 41.8 45.0 MCV 87.3 88.6 MCH 29.2 29.3 MCHC 33.5 33.1 RDW 14.0 14.1 Plt Count 275 276 MPV 9.3 L 9.5 Immature Gran % (Auto) 0.8 H 0.7 H Neut % (Auto) 91.9 H 93.0 H Lymph % (Auto) 1.8 L 4.1 L [place] % (Auto) 5.0 1.8 L Eos % (Auto) 0.1 0.1 Baso % (Auto) 0.4 0.3 Lymph # (Auto) 0.5 L 1.0 L [place] # (Auto) 1.2 0.4 Eos # (Auto) 0.0 0.0 Baso # (Auto) 0.1 0.1 Abs Immat Gran (auto) 0.21 H 0.16 H Absolute Neuts (auto) 22.9 H 22.2 H Absolute Nucleated RBC 0.000 0.000 Nucleated RBC % (auto) 0.0 0.0 Smear Tech's Comments VERIFIED ESR 36 H Sodium 137 140 Potassium 3.6 3.9 Chloride 104 108 Carbon Dioxide 21 L 19 L Anion Gap 16 17 BUN 25 H 23 H Creatinine 1.09 1.07 Estim Creat Clear Calc 37.6 38.3 Estimated GFR 48 49 Random Glucose 152 H 145 H Lactic Acid 1.1 Calcium 9.1 9.3 Total Bilirubin 1.1 H AST 18 ALT 8 Alkaline Phosphatase 93 Troponin I High Sens 10.5 Total Protein 7.7 Albumin 3.6 Urine Color Yellow Urine Appearance Turbid Urine pH 7.0 Ur Specific [place] 1.010 Urine Protein 300 (3+) H Urine Glucose (UA) Negative Urine Ketones Negative Urine Blood Large (3+) H Urine Nitrite Positive H Ur Leukocyte Esterase Large (3+) H Urine RBC >20 H Urine WBC >50 Ur Squamous Epith Cells 6-10 Urine Bacteria 3+ Hyaline Casts 3-5 06/24/24 05:58 WBC 16.2 H RBC 3.70 L D Hgb 10.9 L D Hct 33.2 L D MCV 89.7 MCH 29.5 MCHC 32.8 RDW 14.7 Plt Count 204 D MPV 10.1 Immature Gran % (Auto) Neut % (Auto) Lymph % (Auto) [place] % (Auto) Eos % (Auto) Baso % (Auto) Lymph # (Auto) [place] # (Auto) Eos # (Auto) Baso # (Auto) Abs Immat Gran (auto) Absolute Neuts (auto) Absolute Nucleated RBC 0.000 Nucleated RBC % (auto) 0.0 Smear Tech's Comments ESR Sodium 142 Potassium 3.4 Chloride 109 H Carbon Dioxide 22 Anion Gap 14 BUN 34 H Creatinine 1.43 H Estim Creat Clear Calc 28.6 Estimated GFR 35 Random Glucose 109 Lactic Acid Calcium 8.7 D Total Bilirubin AST ALT Alkaline Phosphatase Troponin I High Sens Total Protein Albumin Urine Color Urine Appearance Urine pH Ur Specific [place] Urine Protein Urine Glucose (UA) Urine Ketones Urine Blood Urine Nitrite Ur Leukocyte Esterase Urine RBC Urine WBC Ur Squamous Epith Cells Urine Bacteria Hyaline Casts Airway Mallampati Class: III TM Dist: >3cm Neck ROM: Full Heart: RRR Lungs: CTA Assessment and Plan Assessment Anesthesia Assessment: Anesthesia Plan Discussed and Chart Reviewed Final Anesthetic Review Family History of Problems with Anesthesia: No History of Problems with Anesthesia: No NPO: Yes ASA Class: III and Emergency Final Preanesthetic Review: Meds/Allgs Chart Reviewed, Consent Obtained/Reviewed and Anes Risks/Benef Reviewed Patient Risk: Intermediate Procedure Risk: Intermediate Anesthetic Plan Anesthetic Plan: GA Disposition: Standard PACU
--- NOTE | 2024-06-24 10:55 | MHC.SHP ---
Pre-Procedural Eval Section A - 24 Hr Update-Section A only Date of Service: 06/24/24 The patient is an INPATIENT: Yes Changes since office visit: No Cold of Flu in the past 2 weeks, No New Medical Problems, No Changes in Medication and No Patient answered all questions The patient has been examined within 24 hours of the surgical procedure. The History & Physical has been completed within 30 days and I have reviewed it.: Yes Section B - Complete if H&P > 30 days Chief Complaint: Dysuria Details of Present Illness: Cystoscopy, bilateral retrograde, bilateral stent placement for obstructing stones Allergies: Allergies Allergy/AdvReac Type Severity Reaction Status Date / Time No Known Allergies Allergy Verified 06/22/24 21:55 [No Known Allergies*] Plan I have reviewed the history and physical and performed a pertinent physical examination on my patient. No changes have occurred unless specified. Time Spent With Patient Time: Total time managing care of this patient today ____ minutes.
--- NOTE | 2024-06-24 11:27 | W.PM.OPN ---
Operative Note Operative Note Date of Service: 06/24/24 Narrative: PreOperative Diagnosis: Bilateral obstructing ureteric stones with pyelonephritis Post Operative Diagnosis: Bilateral obstructing ureteric stones with pyelonephritis Procedure: Cystoscopy, left retrograde, left stent placement, right retrograde, right stent placement Surgeon: Dr Murtaza Beckman Anesthesia: LMA Indications for procedure: Acute kidney injury with elevated creatinine 1.43 from baseline 0.92, pyelonephritis with Klebsiella, imaging with bilateral obstructing ureteric stones in bilateral hydro uretero nephrosis Procedure: After informed consent was verified the patient was brought to the operating room and placed in a supine position. Anesthesia was administered per protocol. The patient was placed in modified dorsal lithotomy position and prepped and draped in a sterile fashion. A safety pause time-out was performed. Laterality of procedure and antibiotics were confirmed, appropriate imaging was available A 22 [place] cystoscope was introduced per urethra. No abnormality was noted of urethra or bladder. Both ureteric orifices were seen in a normal position. The left ureter was cannulated with an open ended catheter and a retrograde examination was performed. Filling defects seen at distal ureter with proximal hydro uretero nephrosis. . A Sensor guidewire was placed under fluoroscopy and a good coil was seen within the renal pelvis. A 6 [place] by 22 cm double J stent was advanced over the wire and up to the level of the renal pelvis under fluoroscopic and direct visualization. The stent was seen with appropriate coil within the renal pelvis and in the bladder after deployment. The right ureter was cannulated with an open ended catheter and a retrograde examination was performed. Filling defects seen at mid ureter with proximal hydro uretero nephrosis. A Sensor guidewire was placed under fluoroscopy and a good coil was seen within the renal pelvis. A 6 [place] by 22 cm double J stent was advanced over the wire and up to the level of the renal pelvis under fluoroscopic and direct visualization. The stent was seen with appropriate coil within the renal pelvis and in the bladder after deployment. The patient tolerated the procedure well and was transferred in a stable condition to the recovery area. Pathology: Drains: Bilateral stents as described above
[2024-06-24] MEDS: Enoxaparin Sodium 40 MG/0.4 ML SYRINGE SUBCUT (22:35)
[2024-06-24] MEDS: cefTRIAXone sodium 2 GM VIAL IVPUSH (22:35)
[2024-06-25] VITALS (7 sets, daily range): BP systolic 129–138; BP diastolic 61–73; PULSE 79–89; RESP 14–18; TEMP 36.2–37.1; O2SAT 90–94
[2024-06-25] MEDS: Nicotine 14 MG PATCH.TD24 TRANSDERMA (05:33)
[2024-06-25 07:44] LABS: Hematocrit 34.1 % (37.0-47.0); Hemoglobin 11.3 g/dl (12.0-16.0); Mean Corpuscular HGB Conc 33.1 g/dl (31.0-35.0); Mean Corpuscular Hemoglobin 29.5 pg (27.0-33.0); Mean Platelet Volume 9.9 fL (9.4-12.3); Platelet Count 205 X10*3/uL (160-400); Red Blood Count 3.83 X10*6/uL (4.20-5.50); Red Cell Distribution Width 14.6 % (11.0-16.0); White Blood Count 13.5 X10*3/uL (4.8-10.8)
[2024-06-25 07:58] LABS: Anion Gap 14 (12-20); Blood Urea Nitrogen 29 mg/dL (9-16); Calcium 8.6 mg/dL (8.4-10.2); Carbon Dioxide 23 mmol/L (22-29); Chloride 106 mmol/L (96-108); Creatinine Clr Calc Pharmacy 39.8; Estimated Glomerular Filt Rate 52; Glucose Random 95 mg/dL (60-115); Potassium 3.7 mmol/L (3.3-5.1); Sodium 139 mmol/L (135-145)
[2024-06-25] MEDS: 0.9 % Sodium Chloride Flush 3 ML SYRINGE IVFLUSH ×2 (09:20→22:30)
[2024-06-25] MEDS: Multivitamin TABLET 1 TAB PO (09:21)
[2024-06-25] MEDS: Docusate Sodium 100 MG CAPSULE PO (09:22)
[2024-06-25] MEDS: Cholecalciferol (Vitamin D3) 25 MCG TABLET PO (09:22)
[2024-06-25] MEDS: Metoprolol Tartrate 12.5 MG HALFTAB PO ×2 (09:22→22:33)
[2024-06-25] MEDS: Atorvastatin Calcium 10 MG TABLET PO (09:22)
--- NOTE | 2024-06-25 09:46 | HO.PM.IMPN ---
Subjective Subjective Date of Service: 06/25/24 Interval History: feeling better today Physical Exam Vital Signs: Vital Signs: Last Vital Signs Temp 98.8 F 06/25/24 08:00 Pulse 85 06/25/24 08:00 Resp 14 06/25/24 08:00 BP 138/73 06/25/24 08:00 Pulse Ox 93 06/25/24 08:00 O2 Del Method Room Air 06/25/24 08:00 O2 Flow Rate 2 06/24/24 12:00 BMI result Body Mass Index 25.8 General: AO X 3, no acute distress Resp: CTA bilateral, no accessory muscles used CVS: S1,S2,RRR GI: soft, non tender, non distended Neuro: motor grossly intact, alert Psych: appropriate affect, appropriate insight Objective Data Active Medications Acetaminophen (Acetaminophen 325 Mg Tablet) 650 mg PO Q6H PRN PRN Reason: Pain, Mild 1-3,fever,headache Atorvastatin Calcium (Atorvastatin Calcium 10 Mg Tablet) 10 mg PO DAILY [facility] Last Admin: 06/25/24 09:22 Dose: 10 mg Documented By: JEMAL Calcium Carbonate (Calcium Carbonate 750 Mg Tab.Chew) 750 mg PO Q4H PRN PRN Reason: Heartburn Ceftriaxone Sodium (Ceftriaxone Sodium 2 Gm Vial) 2 gm IVPUSH Q24H [facility] Last Admin: 06/24/24 22:35 Dose: 2 gm Documented By: FIFI Docusate Sodium (Docusate Sodium 100 Mg Capsule) 100 mg PO DAILY [facility] Last Admin: 06/25/24 09:22 Dose: 100 mg Documented By: JEMAL Enoxaparin Sodium (Enoxaparin Sodium 40 Mg/0.4 Ml Syringe) 40 mg SUBCUT Q24H [facility] Last Admin: 06/24/24 22:35 Dose: 40 mg Documented By: FIFI Magnesium Hydroxide (Milk Of Magnesia 30 Ml Oral.Susp) 30 ml PO DAILY PRN PRN Reason: Constipation Melatonin (Melatonin 3 Mg Tablet) 6 mg PO BEDTIME PRN PRN Reason: Insomnia Metoprolol Tartrate (Metoprolol Tartrate 12.5 Mg Halftab) 12.5 mg PO BID [facility]; Protocol Last Admin: 06/25/24 09:22 Dose: 12.5 mg Documented By: JEMAL Multivitamins/Vitamin C (Multivitamin Tablet) 1 tab PO DAILY [facility] Last Admin: 06/25/24 09:21 Dose: 1 tab Documented By: JEMAL Naloxone HCl (Naloxone Hcl 0.4 Mg/Ml Vial) 0.04 mg IVPUSH Q5M PRN PRN Reason: Excessive sedation or RR < 8 Ondansetron HCl (Ondansetron Hcl 4 Mg/2 Ml Vial) 4 mg IVPUSH Q8H PRN PRN Reason: Nausea and Vomiting Last Admin: 06/23/24 04:16 Dose: 4 mg Documented By: THOMAS Sodium Chloride (0.9 % Sodium Chloride Flush 3 Ml Syringe) 3 ml IVFLUSH QSHIFT [facility] Last Admin: 06/25/24 09:20 Dose: 3 ml Documented By: JEMAL Vitamin D (Cholecalciferol (Vitamin D3) 25 Mcg Tablet) 25 mcg PO DAILY [facility] Last Admin: 06/25/24 09:22 Dose: 25 mcg Documented By: JEMAL Labs 06/25/24 07:15 06/25/24 07:15 Labs: Laboratory Results - last 24 hr 06/25/24 07:15 MCV 89.0 MCH 29.5 MCHC 33.1 RDW 14.6 Plt Count 205 MPV 9.9 Absolute Nucleated RBC 0.000 Nucleated RBC % (auto) 0.0 Anion Gap 14 Estim Creat Clear Calc 39.8 Estimated GFR 52 Random Glucose 95 Calcium 8.6 Microbiology Microbiology Results: Microbiology 06/22/24 22:20 Blood Culture - Preliminary Blood - Venous Gram negative vincent 06/22/24 22:21 Blood Culture - Preliminary Blood - Venous Gram negative vincent 06/22/24 Unknown Urine Culture - Final Urine clean catch - Clean Catch Midstream Klebsiella pneumoniae Assessment and Plan (1) Essential hypertension: Status: Acute Plan 79F PMH hypertension, hyperlipidemia, aortic aneurysm status post repair, nephrolithiasis presented with altered mental status Sepsis and acute metabolic encephalopathy due to urinary tract infection complicated by GNR bacteremia due to bilateral obstructing stone with hydronephrosis and ERIC IV ceftriaxone, follow up cultures, klebsiella on urine appreciated, s/p bilateral stents 06/24/24 eric resolved Hypertension Metoprolol acute hypoxic respiratory failure due to underlying copd with increased demand from infection now on room air Hyperlipidemia Statin DVT prophylaxis with Lovenox Full Code reason for continued hospitalization: Awaiting cultures Quality Stroke Does the patient have a stroke diagnosis?: No VTE Prior VTE?: No VTE Risk Level:: Medical - moderate - high VTE Device Contraindication: Treatment Not Indicated VTE Drug Contraindication: N/A - Med Ordered
--- NOTE | 2024-06-25 13:28 | P.PNUR_ITS ---
Subjective Subjective Date of Service: 06/25/24 Interval history: Significant improvement since stents placed yesterday Creatinine has declined from 1.4-1.0 WBC has declined to 13.5 Significant improvement in well being Urine clear on observation Urine culture resulted has Klebsiella resistant to penicillin in both urine and blood. Recommend 14 days therapy Will organize stone procedure for 4-6 weeks' time Physical Exam 2 Vital Signs: Vital Signs: Last Vital Signs Temp 97.1 F 06/25/24 12:00 Pulse 79 06/25/24 12:00 Resp 16 06/25/24 12:00 BP 131/61 06/25/24 12:00 Pulse Ox 94 06/25/24 12:00 O2 Del Method Room Air 06/25/24 12:00 O2 Flow Rate 2 06/24/24 12:00 BMI result Body Mass Index 25.8 Const: General: cooperative, healthy appearing, comfortable and no acute distress Orientation/consciousness: patient oriented x3 HEENT: Face and sinus: Yes normal facial exam Mouth: moist mucous membranes Neck: Neck: Yes normal visual inspection, Yes full ROM and Yes trachea midline Chest: Chest palpation & inspection: normal inspection of the chest Resp: Effort & Inspection: normal respiratory effort, able to speak in complete sentences and no respiratory distress GI: Inspection: Yes normal to inspection Back/Spine/Pelvis: Cervical Spine: normal cervical lordosis Thoracic/Lumbar Spine: thoracic and lumbar spine normal to inspection Skin: General skin exam: no rashes or lesions noted Neuro: General: patient oriented x3, tone normal and moves all extremities Extrem: General: Yes normal to inspection and Yes capillary refill normal Urology Results Labs 06/25/24 07:15 06/25/24 07:15 Labs: Laboratory Results - last 24 hr 06/25/24 07:15 WBC 13.5 H RBC 3.83 L Hgb 11.3 L Hct 34.1 L MCV 89.0 MCH 29.5 MCHC 33.1 RDW 14.6 Plt Count 205 MPV 9.9 Absolute Nucleated RBC 0.000 Nucleated RBC % (auto) 0.0 Sodium 139 Potassium 3.7 Chloride 106 Carbon Dioxide 23 Anion Gap 14 BUN 29 H Creatinine 1.03 Estim Creat Clear Calc 39.8 Estimated GFR 52 Random Glucose 95 Calcium 8.6 Progress Note: A&P Assessment and plan (1) Ureteric calculus: Status: Acute (2) Sepsis: Status: Acute (3) Pyelonephritis: Status: Acute (4) Acute kidney injury: Status: Acute Plan Significant improvement after the obstruction with bilateral stents Hernández catheter can be DC tomorrow Time Spent With Patient Time: Total time managing care of this patient today ____ minutes. Progress Note: Quality Stroke Does the patient have a stroke diagnosis?: No
[2024-06-25] MEDS: Enoxaparin Sodium 40 MG/0.4 ML SYRINGE SUBCUT (22:30)
[2024-06-25] MEDS: cefTRIAXone sodium 2 GM VIAL IVPUSH (22:33)
[2024-06-26 03:36] VITALS: BP 131/62; PULSE 90; RESP 18; TEMP 36.6
[2024-06-26 06:26] LABS: Hemoglobin 12.4 g/dl (12.0-16.0); Mean Corpuscular HGB Conc 33.5 g/dl (31.0-35.0); Mean Corpuscular Hemoglobin 29.2 pg (27.0-33.0); Mean Corpuscular Volume 87.3 fL (80.0-98.0); Mean Platelet Volume 9.6 fL (9.4-12.3); Platelet Count 236 X10*3/uL (160-400); Red Blood Count 4.24 X10*6/uL (4.20-5.50); Red Cell Distribution Width 14.2 % (11.0-16.0); White Blood Count 10.6 X10*3/uL (4.8-10.8)
[2024-06-26 06:42] LABS: Anion Gap 13 (12-20); Blood Urea Nitrogen 26 mg/dL (9-16); Carbon Dioxide 24 mmol/L (22-29); Chloride 106 mmol/L (96-108); Creatinine Clr Calc Pharmacy 40.1; Estimated Glomerular Filt Rate 52; Glucose Random 104 mg/dL (60-115); Potassium 3.5 mmol/L (3.3-5.1); Sodium 139 mmol/L (135-145)
--- NOTE | 2024-06-26 07:32 | PC.NURSE ---
Pt has ceballos from cystoscopy 06/24/24 - per tiger text from Dr. Rk sainz d/c ceballos today.
[2024-06-26 07:41] VITALS: BP 155/72; PULSE 76; RESP 18; TEMP 36; O2SAT 93
[2024-06-26] MEDS: Docusate Sodium 100 MG CAPSULE PO (08:12)
[2024-06-26] MEDS: Atorvastatin Calcium 10 MG TABLET PO (08:12)
[2024-06-26] MEDS: Metoprolol Tartrate 12.5 MG HALFTAB PO (08:12)
[2024-06-26] MEDS: Multivitamin TABLET 1 TAB PO (08:12)
[2024-06-26] MEDS: Cholecalciferol (Vitamin D3) 25 MCG TABLET PO (08:12)
[2024-06-26] MEDS: 0.9 % Sodium Chloride Flush 3 ML SYRINGE IVFLUSH (08:15)
--- NOTE | 2024-06-26 09:11 | P.DS_ITS ---
DS: Providers Provider Date of Service: 06/26/24 Date of admission: 06/22/24 22:50 Date of discharge: 06/26/24 Primary care physician: Hue Frost MD Consults: 06/23/24 12:58 Consult to Urology Routine Consulting Provider: [facility] Reason for consultation: pyelo, obstructing stone DS: Diagnosis Discharge Diagnosis (1) Ureteric calculus: Status: Acute (2) Sepsis: Status: Acute (3) Pyelonephritis: Status: Acute (4) Acute kidney injury: Status: Acute DS: Summary Hospital Course Hospital Course: from initial hpi: 79-year-old female with pertinent history of hypertension, mixed hyperlipidemia, aortic aneurysm status post repair who was brought to the emergency department for evaluation of altered mentation. Patient was found to be confused as per family members and was not making sense. She does complain of dysuria and increased urinary frequency. She was last seen in the ER on 06/08 and sent home with p.o. cefuroxime after being diagnosed with a acute UTI. Does complain of nausea and chills. No documented temperature. Also with malaise and easy fatigability. No chest pain, palpitations, shortness of breath, abdominal pain, changes in bowel habits. In the emergency department, patient was found to be septic and urine concerning for UTI. hospital course: Metabolic encephalopathy due to urinary tract infection complicated by Klebsiella bacteremia due to bilateral obstructing nephrolithiasis with hydronephrosis and acute kidney injury. Patient was treated with IV ceftriaxone, sepsis and encephalopathy resolved. Was given IV fluids and underwent cystoscopy with bilateral stent placement and ERIC resolved. On discharge will continue 10 more days of cefuroxime and follow up with Urology. For hypertension was continued on metoprolol. On admission was further complicated by acute hypoxic respiratory failure due to likely underlying undiagnosed COPD with increased oxygen demand due to sepsis. And sepsis resolved patient was weaned down to room air. For hyperlipidemia was continued on statin. Patient is feeling better will be discharged home. Time Attestation Discharge Coordination Time (in mins): 32 Quality: Safe Use of Opioids Does Pt have an Active Cancer Diagnosis on the Problem List?: No Quality: Stroke Does the patient have a stroke diagnosis?: No Physical Exam Vital Signs: Vital Signs: Last Vital Signs Temp 96.8 F 06/26/24 07:41 Pulse 76 06/26/24 07:41 Resp 18 06/26/24 07:41 BP 155/72 H 06/26/24 07:41 Pulse Ox 93 06/26/24 07:41 O2 Del Method Room Air 06/26/24 07:41 O2 Flow Rate 2 06/24/24 12:00 BMI result Body Mass Index 25.8 Const: General: cooperative, healthy appearing, comfortable and no acute distress Orientation/consciousness: patient oriented x3 HEENT: Face and sinus: Yes normal facial exam Mouth: moist mucous membranes Neck: Neck: Yes normal visual inspection, Yes full ROM and Yes trachea midline Chest: Chest palpation & inspection: normal inspection of the chest Resp: Effort & Inspection: normal respiratory effort, able to speak in complete sentences and no respiratory distress GI: Inspection: Yes normal to inspection Back/Spine/Pelvis: Cervical Spine: normal cervical lordosis Thoracic/Lumbar Spine: thoracic and lumbar spine normal to inspection Skin: General skin exam: no rashes or lesions noted Neuro: General: patient oriented x3, tone normal and moves all extremities Extrem: General: Yes normal to inspection and Yes capillary refill normal DS: Data Data Completed and Pending Labs on day of discharge: Laboratory Results - last 24 hr 06/26/24 05:55 WBC 10.6 RBC 4.24 Hgb 12.4 Hct 37.0 MCV 87.3 MCH 29.2 MCHC 33.5 RDW 14.2 Plt Count 236 MPV 9.6 Absolute Nucleated RBC 0.000 Nucleated RBC % (auto) 0.0 Sodium 139 Potassium 3.5 Chloride 106 Carbon Dioxide 24 Anion Gap 13 BUN 26 H Creatinine 1.02 Estim Creat Clear Calc 40.1 Estimated GFR 52 Random Glucose 104 Calcium 9.0 Discharge Plan Discharge Anticipated Discharge Date/Time: 06/26/24 09:09 Patient Disposition: Home, Self-Care Discharge Diagnosis: sepsis, uti, eric, stones Referrals: Murtaza Beckman MD [Physician] - 1 Week Hue Frost MD [Primary Care Provider] - 1 Week Discharge Medications: New cefuroxime axetil 500 mg tablet 500 mg PO Q12H Qty: 20 0RF Continued atorvastatin 10 mg tablet 10 mg PO DAILY Qty: 90 1RF metoprolol tartrate 25 mg tablet 12.5 mg PO BID Qty: 90 1RF cholecalciferol (vitamin D3) 25 mcg (1,000 unit) capsule 25 mcg PO DAILY PreserVision AREDS-2 250-90-40-1 mg capsule 1 tab PO BID docusate sodium [Colace] 100 mg capsule 100 mg PO DAILY calcium citrate 250 mg calcium tablet 500 mg PO BID 90 Days Qty: 360 3RF Discharge Orders: Discharge Order (Routine); Ordered 06/26/24 Ordered By: Jaskaran Bernstein Diet: Advance to usual diet Activity on Discharge: As tolerated Stand Alone Forms: Patient Portal Discharge page Print Language: [place] Care Plan Goals: recovery Health Concerns: uti from obstructing stones Plan of Treatment: 10 more days ceftin, follow up with urology Assessment: see above
--- NOTE | 2024-06-26 09:18 | MHC.CM.PN ---
DP: PT HAS BEEN MEDICALLY CLEARED FOR DC HOME, NO SERVICES. PT'S DAUGHTER WILL TRANSPORT HOME AT 11 AM
[2024-06-26 09:51] VITALS: O2SAT 94
--- NOTE | 2024-06-26 10:08 | PC.NURSE ---
Pt urinated 150 ml at 9:00 after ceballos removal at 8:30
[2024-06-26 10:45] VITALS: BP 145/64; PULSE 80; RESP 16; TEMP 36.6; O2SAT 94
--- NOTE | 2024-06-27 09:17 | HO.POSTANES ---
Post Anesthesia Evaluation Post Anesthesia Evaluation Date of Service: 06/27/24 Anesthesia: General Mental Status: Awake Pain Control: Satisfactory Nausea/Vomiting: None Hydration: Adequate Anesthesia-Related Issues: No Anes. Related Issues
--- NOTE | 2024-06-28 05:02 | PC.NURSE ---
Fluid completed at documented time at 23:54 on sepsis sheet, completed fluid time in error on 06/22/24
--- NOTE | 2024-06-28 05:48 | PC.NURSE ---
fluid were completed at 2337 on 06/22/24 per sepsis sheet, document fluid completion in mar by error
== END 2024-06-26 11:08 | disposition home or self-care (01) | DRG 853 ==
LOC: HO.ED 22:34 → HO.EDOVER 23:03 → HO.S3 06-23 07:44
PROVIDERS: Urology; Admitting Provider Student in an Organized Health Care Education/Training Program; Emergency Provider Emergency Medicine; PCP Internal Medicine; Visit Provider Internal Medicine
PROC: 0T788DZ Dilation of Bilateral Ureters with Intraluminal Device, Via Natural or Artificial Opening Endoscopic (ICD-10-PCS; principal; 2024-06-24 10:30)
DX: A41.9 Sepsis, unspecified organism (principal); G93.41 Metabolic encephalopathy; J96.01 Acute respiratory failure with hypoxia; N13.6 Pyonephrosis; B96.1 Klebsiella pneumoniae [K. pneumoniae] as the cause of diseases classified elsewhere; I10 Essential (primary) hypertension; E78.2 Mixed hyperlipidemia; Z87.442 Personal history of urinary calculi; Z79.899 Other long term (current) drug therapy
CPT/HCPCS: 36415; 74176; 80048; 80053; 81001; 83605; 84484; 85025; 85027; 85652; 87040; 87077; 87086; 87088; 87186; 87205; 93005; 99285; C1758; C1769; C2617; J0131; J0696; J1650; J2003; J2060; J2250; J2405; J2704; J3010; P9047; Q9967

== ENCOUNTER → 2024-06-22 22:37 | Outpatient (BNV) | payer MEDICARE, SELFPAY | PROVIDERS: Admitting Provider Student in an Organized Health Care Education/Training Program; Emergency Provider Emergency Medicine; PCP Internal Medicine; Visit Provider Internal Medicine Cardiovascular Disease | DX: R00.0 Tachycardia, unspecified (principal); R94.31 Abnormal electrocardiogram [ECG] [EKG] | CPT/HCPCS: 93010 ==

== ENCOUNTER 2024-06-22 22:50 | Outpatient (BNV) | payer MEDICARE, SELFPAY | END 2024-06-23 10:59 | PROVIDERS: Admitting Provider Student in an Organized Health Care Education/Training Program; Emergency Provider Emergency Medicine; PCP Internal Medicine; Visit Provider Radiology Diagnostic Radiology | DX: N13.2 Hydronephrosis with renal and ureteral calculous obstruction (principal); K44.9 Diaphragmatic hernia without obstruction or gangrene | CPT/HCPCS: 74176 ==

== ENCOUNTER → 2024-06-22 22:50 | Outpatient (BNV) | payer MEDICARE, SELFPAY | PROVIDERS: Admitting Provider Student in an Organized Health Care Education/Training Program; Emergency Provider Emergency Medicine; PCP Internal Medicine; Visit Provider Student in an Organized Health Care Education/Training Program | DX: I10 Essential (primary) hypertension (principal) | CPT/HCPCS: 99222; 99232; 99239; 99499 ==

== ENCOUNTER → 2024-06-22 22:50 | Outpatient (BNV) | payer MEDICARE, SELFPAY | PROVIDERS: Admitting Provider Student in an Organized Health Care Education/Training Program; Emergency Provider Emergency Medicine; PCP Internal Medicine; Visit Provider Urology | DX: N20.0 Calculus of kidney (principal); N20.1 Calculus of ureter | CPT/HCPCS: 99222 ==

== ENCOUNTER 2024-07-06 10:47 | Outpatient (AMB) | payer MEDICARE, SELFPAY ==
--- NOTE | 2024-07-06 11:10 | A.OFFPC_ITS ---
Vital Signs 07/06/24 11:12 Height 5 ft 4 in Weight 142 lb BMI 24.4 BP 110/72 Blood Pressure Location Lt brachial Position Sitting Respiration 15 Pulse 77 Pulse Source Pulse Oximeter Temp 97.6 F Temp Source Oral Pulse Oximetry (%) 95 Oxygen Delivery Method Room Air Intake Visit Reasons: [facility] Intake Note: Pt is here today for her TN+CM C Allergies No Known Allergies [No Known Allergies*] Allergy (Verified 07/06/24 12:15) Medication List - Last Reconciled 07/06/24 by Hue Frost MD atorvastatin 10 mg PO DAILY calcium citrate 500 mg (2 x 250 mg calcium) PO BID 90 days cholecalciferol (vitamin D3) 25 mcg PO DAILY docusate sodium (Colace) 100 mg PO DAILY metoprolol tartrate 12.5 mg (1/2 x 25 mg) PO BID vit C,Y-Gj-jlqvx-lutein-zeaxan 250-90-40-1 mg (PreserVision AREDS-2) 1 tab PO BID Tobacco use date assessed: 07/06/24 Fall risk assessment: No Falls in past year Last assessed Fall Risk: 07/06/24 Dental Screening Dental Screen Date: 07/06/24 Did you have a dental visit in the last 12 months?: No Did you have a dental problem in the last 6 months where you did not have access to dental care?: No Was dental information given to patient?: Patient declined HPI [facility] HPI Details 79-year-old female with pertinent histor y of hypertension, mixed hyperlipidemia, aortic aneurysm status post repair here today for follow-up after recent admission for metabolic encephalopathy due to urinary tract infection complicated by Klebsiella bacteremia due to bilateral obstructing nephrolithiasis with hydronephrosis and acute kidney injury. Initially presented with confusion, but denies any urinary frequency, no dysuria, urgency, no back pain. She was treated with IV ceftriaxone, and sepsis and encephalopathy resolved. She also received IV fluids and underwent cystoscopy with bilateral stent placement with ERIC resolved . She was continued on 10 more days of cefuroxime and has an appointment with urology next week. She was continued on her metoprolol for hypertension control, and atorvastatin for her lipids. At present she is feeling better, with no new complaints. 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 Essential hypertension Aneurysm of aortic arch Vitamin D deficiency Osteoporosis Surgical History History of aortic aneurysm repair History of AAA (abdominal aortic aneurysm) repair Hx of colonoscopy Hx of hysterectomy History of surgery Hx of cholecystectomy History of appendectomy Family History Father HTN (hypertension) Mother HTN (hypertension) Social History Household Members: None Housing: Apartment Housing Other:: Senior housing Do you presently have visiting nurse or other home services: No Alcohol intake: unknown Patient Tobacco Use Status: Current everyday Tobacco user Tobacco use type: Cigarette Cigarettes Per Day: 9 e-Cigarette/Vaping Use: Never Used Advance Directives Date on File: 02/08/23 service: No Current occupational status: retired Cognitive needs: No Hearing needs: No Vision needs: Yes Questionnaire PHQ-9 Over the last 2 weeks, how often have you been bothered by any of the following problems? 1. Little interest or pleasure in doing things: not at all 2. Feeling down, depressed, or hopeless: not at all 3. Trouble falling or staying asleep, or sleeping too much: not at all 4. Feeling tired or having little energy: not at all 5. Poor appetite or overeating: not at all 6. Feeling bad about yourself - or that you are a failure or have let yourself or your family down: not at all 7. Trouble concentrating on things, such as reading the newspaper or watching television: not at all 8. Moving or speaking so slowly that other people could have noticed. Or the opposite - being so fidgety or restless that you have been moving around a lot more than usual: not at all 9. Thoughts that you would be better off or of hurting yourself in some way: not at all Total score: 0 Depression Screening Interpretation: Negative Depression Screening Done: Yes 23839 - PHQ-9 Billing: Yes Source: Developed by Drs. Marco Rain, Fabiana Ortega, Uziel Light and colleagues, with an educational taty from [employer]. Thrive Questionnaire Date Thrive assessed: 07/06/24 I am a: Patient What is your living situation today?: I have a steady place to live Within the past 12 months, did the food you bought not last and you didn't have the money to get more?: Never true Within the past 12 months, did you worry whether your food would run out before you got money to buy more?: Never true Do you have trouble paying for medicines?: No Do you have trouble getting transportation to medical appointments?: No Do you have trouble paying your heating and electricity bill?: No Do you have trouble taking care of your child, family member or friend?: No Do you have trouble with day-to-day activities such as bathing, preparing meals, shopping, managing finances, etc.?: No Are you currently unemployed and looking for a job?: No Are you interested in more education?: No THRIVE Score: 0 AUDIT C Alcohol Use Questionnaire (AUDIT-C) 1. How often do you have a drink containing alcohol?: Never Total Score: 0 ELYSSA-7 AMB Questionnaire ELYSSA-7 Date ELYSSA - 7 assessed: 07/06/24 Feeling nervous, anxious, or on edge: 0 = Not at all Not being able to stop or control worryin = Not at all Worrying too much about different things: 0 = Not at all Trouble relaxin = Not at all Being so restless that it is hard to sit still: 0 = Not at all Becoming easily annoyed or irritable: 0 = Not at all Feeling afraid as if something awful might happen: 0 = Not at all Total ELYSSA-7 score (0-4 normal; 5-9 mild; 10-14 moderate; 15-21 severe): 0 Source: Developed by Drs. Marco Rain, Uziel Ruiz and colleagues, with an educational taty from [employer]. ELYSSA-7 Assessment Billing ELYSSA-7 Assessment Tool: ELYSSA-7 Assessment 99801 Review of Systems Const Denies fatigue, Denies frequent falls, Denies headache(s), Denies lethargy, Denies malaise and Denies weakness Eyes Reports blurry vision (Right more than the left), Denies diplopia, Denies dry eyes, Denies loss of peripheral vision and Reports requires corrective lenses ENT Denies dysphagia, Denies dizziness, Denies dry mouth, Denies headache(s) and Denies nasal congestion Card Denies chest pain, Denies rapid heart rate, Denies irregular heart rhythm, Denies leg edema, Denies lightheadedness, Denies palpitations and Denies dyspnea Resp Denies chest congestion, Denies cough and Denies dyspnea GI Denies abdominal pain, Denies melena, Denies bloating, Denies hematochezia, Denies change in bowel habits, Denies constipation, Denies dysphagia, Denies early satiety and Denies nausea Reports no additional complaints Musc Denies back pain, Denies arthralgias, Denies muscle cramps, Denies muscle weakness and Denies tingling Skin/Breast Reports as per HPI and Denies rash Neuro Denies burning sensations, Denies dizziness, Denies frequent falls, Denies headache(s), Denies tingling, Denies paresthesias, Denies tremor(s) and Denies weakness Psych Reports no additional complaints Endo Denies fatigue, Denies polydipsia, Denies polyuria and Denies palpitations Simno/Lymph Reports no additional complaints Aller/Immun Reports no additional complaints Physical exam (Primary Care) Vital Signs: Last Vital Signs Temp 97.6 F 07/06/24 11:12 Pulse 77 07/06/24 11:12 Resp 15 07/06/24 11:12 BP 110/72 07/06/24 11:12 Pulse Ox 95 07/06/24 11:12 Oxygen Delivery Method Room Air 07/06/24 11:12 BMI result Body Mass Index 24.4 Tobacco/Smoking Status: Tobacco use Status Tobacco use date assessed 07/06/24 07/06/24 11:16 Patient Tobacco Use Status Current everyday Tobacco 07/06/24 11:16 Tobacco use type Cigarette 07/06/24 11:16 e-Cigarette/Vaping Use Never Used 07/06/24 11:16 PHQ-9: PHQ-9 Score PHQ-9: Total score 0 07/06/24 12:31 Depression Screening Interpretation: Negative Thrive Assessment: Date of Thrive Assessment Date Thrive assessed 07/06/24 07/06/24 12:31 Const Other: Alert oriented x3, no acute cardiorespiratory distress, normal gait Orientation/consciousness: patient oriented x3 HENMT Face and sinus: Yes face symmetric Mouth: Normal oral and palatal mucosa present, oropharynx normal and moist mucous membranes Eyes General: appearance normal, both eyes and all related structures Neck Neck: Yes full ROM, Yes no lymphadenopathy and Yes supple Thyroid: Thyroid normal Chest Breast/axilla palpation: normal palpation of the breasts Resp Effort & Inspection: normal respiratory effort and able to speak in complete sentences Auscultation: clear to auscultation bilaterally Cardio Other: S1-S2 present regular rate and rhythm Jugular venous distension: no JVD GI Palpation (GI): Soft to palpation, nontender, no guarding and no masses General: Yes no CVA tenderness Back/Spine/Pelvis Back: no CVA tenderness and No back tenderness Skin General skin exam: no rashes or lesions noted Neuro General: patient oriented x3, gait normal, tone normal, moves all extremities, Normal light touch and pain sensation and no focal motor deficits Extrem General: Yes full ROM, Yes no joint enlargement, Yes no pedal edema, Yes no calf tenderness and Yes normal gait Psych Appearance: grossly normal and well kempt Mental Status: mental status grossly normal Speech and movement: Normal speech and movement present Affect: normal affect Attitude: cooperative Thought process: Normal thought process present Results Reviewed Results Reviewed: Name: Radha Crews Age/Sex: 79/F : 1945 Unit#: [id number] Attend Dr: Jaskaran Bernstein MD Re06/22/24 Status: DIS IN Location: [facility] 375-1 Disch: 06/26/24 SPEC : [id number] EVELYNE: 06/26/2455 STATUS: COMP REQ : [id number] RECD: 06/26/[address]: Jaskaran Bernstein MD COMP: 06/26/24 ENTERED: 06/26/[address]: Hue Frost MD ORDERED: CBC No Diff Test Result Flag Reference WBC 10.6 4.8-10.8 X10*3/uL RBC 4.24 4.20-5.50 X10*6/uL HGB 12.4 12.0-16.0 g/dl HCT 37.0 37.0-47.0 % MCV 87.3 80.0-98.0 fL MCH 29.2 27.0-33.0 pg MCHC 33.5 31.0-35.0 g/dl RDW 14.2 11.0-16.0 % PLT 236 160-400 X10*3/uL MPV 9.6 9.4-12.3 fL NRBC Pct Auto 0.0 0.0-0.2 /100WBC NRBC Abs Auto 0.000 0.0-0.012 X10*3/uL Name: Radha Crews Age/Sex: 79/F : 1945 Unit#: [id number] Attend Dr: Jaskaran Bernstein MD Re06/22/24 Status: DIS IN Location: [address] Disch: 06/26/24 SPEC : [id number] EVELYNE: 06/26/2455 STATUS: COMP REQ : [id number] RECD: 06/26/[address]: Jaskaran Bernstein MD COMP: 06/26/2442 ENTERED: 06/26/24-[address]: Hue Frost MD ORDERED: BMP Test Result Flag Reference Sodium 139 135-145 mmol/L Potassium 3.5 3.3-5.1 mmol/L CL 106 96-108 mmol/L CO2 24 22-29 mmol/L Gap 13 12-20 BUN 26 H 9-16 mg/dL Creat 1.02 0.5-1.4 mg/dL Estimated CrCl 40.1 Provided height and weight: 160.02 cm, 66.1 kg. eGFR (calculated from the MDRD study equation) and eCrCl (calculated from the Cockcroft-Gault equation) are based on different parameters and may not yield comparable results. If eCrCl result is absurd, please check patient's height/weight. eGFR 52 Chronic Kidney Disease: Estimated GFR < 60 mL/min/1.73m2 Severe Kidney Disease: Estimated GFR < 15 mL/min/1.73m2 Glucose, Random 104 60-115 mg/dL CA 9.0 8.4-10.2 mg/dL Coding Level of Care Code TCM Mod MDM <= 14 Days Diagnoses Essential hypertension I10 Hypertriglyceridemia E78.1 Recurrent kidney stones N20.0 Additional Codes ELYSSA-7 Assessment Billing - ELYSSA-7 Assessment Tool: ELYSSA-7 Assessment 24238 ([id number]) PHQ-9 - 47881 - PHQ-9 Billing: Yes ([id number]) Assessment & Plan Assessment & Plan (1) Essential hypertension: Code(s): I10 - Essential (primary) hypertension Category: Medical Plan: Blood pressure at goal of less than 130/80. Continue metoprolol tartrate 12.5 mg twice a day and reinforced importance of following a low sodium diet, getting regular exercise, and lowering stress levels. (2) Hypertriglyceridemia: Code(s): E78.1 - Pure hyperglyceridemia Category: Medical Plan: Continue atorvastatin 10 mg daily in addition to adhering to a low-cholesterol diet. Reminded to get her fasting lipid panel done next month (3) Recurrent kidney stones: Code(s): N20.0 - Calculus of kidney Category: Medical Plan: Keep appointment with urology next week to discuss other treatment options Orders: Orders Lipid Panel 07/25/24 E78.1 - Pure hyperglyceridemia, I10 - Essential (primary) hypertension, N20.0 - Calculus of kidney Alanine Aminotransferase 07/25/24 E78.1 - Pure hyperglyceridemia, I10 - Essential (primary) hypertension, N20.0 - Calculus of kidney Aspartate Amino Transferase 07/25/24 E78.1 - Pure hyperglyceridemia, I10 - Essential (primary) hypertension, N20.0 - Calculus of kidney
[2024-07-06 11:12] VITALS: BP 110/72; PULSE 77; RESP 15; TEMP 36.4; O2SAT 95; BMI 24.4
== END 2024-07-06 11:55 | disposition home or self-care (01) ==
LOC: HO.HMCC 10:48
PROVIDERS: PCP Internal Medicine; Visit Provider Internal Medicine
DX: I10 Essential (primary) hypertension (principal); E78.1 Pure hyperglyceridemia; N20.0 Calculus of kidney

== ENCOUNTER → 2024-07-06 10:47 | Outpatient (BNVA) | payer MEDICARE, SELFPAY | PROVIDERS: PCP Internal Medicine; Visit Provider Internal Medicine | DX: I10 Essential (primary) hypertension (principal); E78.1 Pure hyperglyceridemia; N20.0 Calculus of kidney | CPT/HCPCS: 96127; 99495 ==

== ENCOUNTER 2024-07-20 13:12 | Outpatient (AMB) | payer MEDICARE, SELFPAY ==
--- NOTE | 2024-07-20 13:12 | A.OFFVIS_ITS ---
Intake Visit Reasons: Discuss next procedure after hospital D/C Intake Note: Patient is present for DISCUSS NEXT PROCEDURE AFTER HOSPITAL D/C Urology Medication:NONE Antibiotic Allergy:NONE Blood Thinner:NONE Roll Icer Machine Required: No Allergies No Known Allergies [No Known Allergies*] Allergy (Verified 07/31/24 06:22) HPI Comments Details: Radha Is a pleasant female. She is a patient of Dr. Frost. She is seen for the following urologic conditions - nephrolithiasis recent hospital admission had been found with confusion by family members Imaging - Severe hydronephrosis and hydroureter right kidney secondary to group of obstructing ureteral calculi measuring 10 x 5 mm just distal to the iliac crossover. 2. Moderate hydronephrosis and hydroureter left kidney secondary to a 6 x 6 mm group of obstructing stones at the UVJ. 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 Essential hypertension Aneurysm of aortic arch Vitamin D deficiency Osteoporosis Surgical History Hx of cystoscopy (06/24/24) History of aortic aneurysm repair History of AAA (abdominal aortic aneurysm) repair Hx of colonoscopy Hx of hysterectomy History of surgery Hx of cholecystectomy History of appendectomy Family History Father HTN (hypertension) Mother HTN (hypertension) Social History (Updated 07/27/24 @ 12:29 by Rosa Spivey RN) Household Members: None Housing: Apartment Housing Other:: senior housing Are you a primary career development director to a significant other at home: No Do you presently have visiting nurse or other home services: No Alcohol intake: unknown Patient Tobacco Use Status: Current everyday Tobacco user Tobacco use type: Cigarette Cigarettes Per Day: 10 Years Smoked: 50 e-Cigarette/Vaping Use: Never Used Use of substances other than those prescribed or required for medical reasons: No Have you been hit, kicked, punched, or otherwise hurt by someone within the past year? If so, by whom?: No Advance Directives: Yes Advance Directives Information Provided: No Advance Directives on File: Yes Advance Directives Date on File: 02/08/23 service: No Current occupational status: retired Cognitive needs: No Hearing needs: No Vision needs: Yes Review of Systems Const Denies chills and Denies fever(s) Card Reports no additional complaints and Denies syncope Resp Denies cough GI Denies abdominal pain and Denies heartburn Reports as per HPI and Denies change in libido Neuro Denies syncope Psych Denies change in libido Endo Denies change in libido Physical Exam Const General: cooperative, healthy appearing, comfortable and no acute distress Orientation/consciousness: patient oriented x3 HEENT Face and sinus: Yes normal facial exam Mouth: moist mucous membranes Neck Neck: Yes normal visual inspection, Yes full ROM and Yes trachea midline Chest Chest palpation & inspection: normal inspection of the chest Resp Effort & Inspection: normal respiratory effort, able to speak in complete sentences and no respiratory distress GI Inspection: Yes normal to inspection Back/Spine/Pelvis Cervical Spine: normal cervical lordosis Thoracic/Lumbar Spine: thoracic and lumbar spine normal to inspection Skin General skin exam: no rashes or lesions noted Neuro General: patient oriented x3, gait normal, tone normal and moves all extremities Extrem General: Yes normal to inspection and Yes capillary refill normal Assessment & Plan Assessment & Plan (1) Recurrent kidney stones: Code(s): N20.0 - Calculus of kidney Category: Medical Plan Ureteroscopy We discussed the nature of the decision and reasonable alternatives for performing ureteroscopy. Options such as medical therapy were discussed. Inter ventions include chemical dissolution, ESWL, ureteroscopy with laser lithotripsy and stent placement, PCNL. The relative uncertainties and benefits related to each alternate procedure were adequately discussed. General surgical risks including, but not limited to - pain, bleeding, infection, myocardial infarction, pulmonary embolus, deep vein thrombosis and cerebrovascular accident which may result in further hospitalization were discussed. Full disclosure of the procedure as well as all major risks, benefits and complications were discussed including but not limited to damage to the urethra, bladder and kidney infection, damage to the ureter, stent migration or malposition, scarring to the renal pelvis, remnant stone fragments, subsequent stone passage with need for secondary procedures. The overall secondary procedure rate is approximately 10-15%. The overall clearance rate is approximately 90-95%. Success of the procedure in the short-term does not necessarily guarantee that l alicia-term success will be maintained. Suitable follow up will need to be maintained. The patient showed understanding of discussion and wishes to proceed with - cystoscopy, retrograde, ureteroscopy, possible lithotripsy/stone basketing and stent on the bilateral side Patient Instructions: This note is constructed using voice recognition software. While every effort has been made to ensure accuracy concrete vault maker errors may have been included. Imaging studies, laboratory and physical exam results were discussed and reviewed in detail. No major barriers to patient understanding were identified. An opportunity to ask questions regarding the treatment plan was provided. All questions were answered. The patient expressed understanding and agreement with the above treatment plan. The patient is aware they should contact our office by phone for worsening of their current condition or the appearance of new urologic symptoms. Compliance is encouraged with any medications and followup testing that is ordered. It is a privilege to participate in the urologic care of your patient. If you have any questions or concerns regarding treatment for the above conditions, or other urologic issues, please do not hesitate to contact me. The office telephone contact is [phone]. Sincerely, Dr Murtaza Beckman MD, [facility] - Urology Compassionate Specialist Care for the Genitourinary System Coding Level of Care Code Est Pt Level 4 (22579) Diagnoses Recurrent kidney stones N20.0
== END 2024-07-20 15:02 | disposition home or self-care (01) ==
LOC: HO.HUSH 13:12
PROVIDERS: PCP Internal Medicine; Visit Provider Urology
DX: N20.0 Calculus of kidney (principal)
CPT/HCPCS: 99214

== ENCOUNTER → 2024-07-20 13:12 | Outpatient (BNVA) | payer MEDICARE, SELFPAY | PROVIDERS: PCP Internal Medicine; Visit Provider Urology | DX: N20.0 Calculus of kidney (principal) | CPT/HCPCS: 99212 ==

== ENCOUNTER 2024-07-26 08:16 | Outpatient (REF) | payer MEDICARE, SELFPAY ==
--- OUTSIDE RECORDS SUMMARY | 2024-07-26 08:27 | XMS_ITS | Data Portability ---
Author Organization [place] - [facility], Allergy Address [address] [address] Care Team Providers Care Change Over Name Role Phone NURYS MARTÍNEZ Primary Care Provider Assessment Encounter Date Assessment [...] Recorded Time Impacted cerumen of bilateral ears [id number] Active 2020 Impacted cerumen, bilateral ; Note: Date Diagnosed : 09/13/2020 12:15 PM (H61.23) Not Available [facility] Problem Notes None recorded. Procedures Surgical History Date Name Laterality Status Provider Name and Address Organization Details Recorded Time Cerumen removal without microscope bilat completed MARRY MA PA-C [address] [facility], [place], [address], [place] - [facility] 03/20/2024 13:23:32 Imaging Results None recorded. Procedure [...] 70 mg tablet active Medicatio n ID: [id number] Br and Name: alendrona te Send Method: [...] mg chewable tablet active Medicatio n ID: [id number] Br and Name: [facility] Send Method: E-Prescri bed Subs Allowed: subs OK Medica tionGener icName: [facility] Not Available Not Available Not Available metoprolol tartrate 25 mg tablet TAKE 1/2 (ONE-HALF ) TABLET BY MOUTH TWICE DAILY active Not Available Not Available No t Available PreserVisi on AREDS 4,296 mcg-226 mg-90 mg capsule active Medicatio n ID: [id number] Br and Name: PreserVis ion AREDS Sen d Method: E-Prescri bed Subs Allowed: subs OK Medica tionGener icName: PreserVis ion AREDS Not Available Not Available Not Available Vitals Date Recorded Body height Body mass index (BMI) Body weight Provider Name and Address Organization Details Last Updated DateTime 03/20/2024 160.02 cm 26.6 kg/m2 10949.86 g Blaise Robins [place] - [facility] 03/20/2024 13:09:00 Social History None recorded. Functional Status None recorded. Mental Status None recorded. Family History Nothing Reported. Medical History No medical history recorded. Gynecological HistoryNo gynecological history recorded. Obstetrics History GPAL:G 0 P 0 0 0 0 Past Encounters Encounter ID Performer Location Encounter Start Date Encounter Closed Date Diagnosis/Indication Diagnosis SNOMED-CT Code Diagnosis ICD10 Code Diagnosis Note [id number] GURINDER MENG MD [facility] [address] [address] 03/20/2024 12:45:18 03/20/2024 13:25:57 Impacted cerumen of bilateral ears [id number] H61.23 Health Concerns Section Related Observation LastModified by Organization Detai ls LastModified Time None Recorded Concern Status LastModified by Organization Details LastModified Time None Recorded Advance Directives Directive None Recorded Payers Encounter Date Sequence Insurance Name Policy Number Policy Mendes Covered Member ID Mendes Member ID Guarantor Name 03/20/[address] [place] [address] [id number] Radha Crews [id number] Radha Crews Notes Date Note Type Note Provider Name and Address Organization Details Recorded Time 03/20/2024 text/html 79 year old female presents for evaluation of ears. Thinks she has a cerumen impaction, feels full. There has been no change in baseline hearing, no otorrha, and no otalgia. GURINDER MENG MD [address] [place] [address], [id number], [facility] - [facility] 03/20/2024 21:06:37 OBGyn Episode No OBEpisode recorded.
[2024-07-26 11:16] LABS: Alanine Aminotransferase 12 U/L (0-31); Aspartate Amino Transferase 23 U/L (5-31); Cholesterol 155 mg/dL (<200); HDL Cholesterol 34 mg/dL (>40); LDL Cholesterol Calculated 64 mg/dL (<100); Triglycerides 285 mg/dL (<150)
== END 2024-07-26 08:17 | disposition home or self-care (01) ==
LOC: HO.HMGCLDS 08:16
PROVIDERS: PCP Internal Medicine; Visit Provider Internal Medicine
DX: I10 Essential (primary) hypertension (principal); E78.1 Pure hyperglyceridemia; N20.0 Calculus of kidney
CPT/HCPCS: 36415; 80061; 84450; 84460

== ENCOUNTER 2024-07-31 06:00 | Day surgery (SDC) | payer MEDICARE, SELFPAY ==
[2024-07-27 12:25] VITALS: BMI 24.8
--- NOTE | 2024-07-28 10:54 | HO.ANESPROP2 ---
Documented by User: Fozia Soto NP 07/28/24 10:58 HPI - Anesthesia Eval Consult details Narrative: 79yo F for Bilateral Cystoscopy, Ureteroroscopy, Retro, Laser with stent placements s/p cysto, stents 06/2024 with LMA-4 during [facility] [place] 06/22-06/26/24 hospital course: Metabolic encephalopathy due to urinary tract infection complicated by Klebsiella bacteremia due to bilateral obstructing nephrolithiasis with hydronephrosis and acute kidney injury. Patient was treated with IV ceftriaxone, sepsis and encephalopathy resolved. Was given IV fluids and underwent cystoscopy with bilateral stent placement and ERIC resolved. On discharge will continue 10 more days of cefuroxime and follow up with Urology. For hypertension was continued on metoprolol. On admission was further complicated by acute hypoxic respiratory failure due to likely underlying undiagnosed COPD with increased oxygen demand due to sepsis. And sepsis resolved patient was weaned down to room air. For hyperlipidemia was continued on statin. Patient is feeling better will be discharged home. 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 Essential hypertension Aneurysm of aortic arch Vitamin D deficiency Osteoporosis Family History Family History Father HTN (hypertension) Mother HTN (hypertension) Family history of problems with anesthesia: No Surgical History Surgical History Hx of cystoscopy (06/24/24) History of aortic aneurysm repair History of AAA (abdominal aortic aneurysm) repair Hx of colonoscopy Hx of hysterectomy History of surgery Hx of cholecystectomy History of appendectomy History of Problems with Anesthesia: No Social History Social History (Updated 07/27/24 @ 12:29 by Rosa Spivey RN) Household Members: None Housing: Apartment Housing Other:: senior housing Are you a primary respiratory care technician to a significant other at home: No Do you presently have visiting nurse or other home services: No Alcohol intake: unknown Patient Tobacco Use Status: Current everyday Tobacco user Tobacco use type: Cigarette Cigarettes Per Day: 10 Years Smoked: 50 e-Cigarette/Vaping Use: Never Used Use of substances other than those prescribed or required for medical reasons: No Have you been hit, kicked, punched, or otherwise hurt by someone within the past year? If so, by whom?: No Advance Directives: Yes Advance Directives Information Provided: No Advance Directives on File: Yes Advance Directives Date on File: 02/08/23 service: No Current occupational status: retired Cognitive needs: No Hearing needs: No Vision needs: Yes Meds Allergies Allergy/AdvReac Type Severity Reaction Status Date / Time No Known Allergies Allergy Verified 07/31/24 06:22 [No Known Allergies*] Home Medications ?Medication ?Instructions ?Recorded ?Confirmed ?Last Taken ?Type cholecalciferol (vitamin D3) 25 25 mcg PO DAILY 09/19/20 07/27/24 Unknown History mcg (1,000 unit) capsule vit C 250 mg-vit E 90 mg-zinc 40 1 tab PO BID 01/20/21 07/27/24 Unknown History mg-copper 1 jo-nxeiwl-kmqqji capsule (PreserVision AREDS-2) docusate sodium 100 mg capsule 100 mg PO DAILY 10/31/21 07/27/24 Unknown History (Colace) Exam Height,Weight and Vital Signs: Height 5 ft 3 in Weight 63.503 kg Pertinent Lab Results Pertinent Lab Results: Laboratory Tests 06/26/24 05:55 WBC 10.6 Hgb 12.4 Hct 37.0 Plt Count 236 Sodium 139 Potassium 3.5 Chloride 106 Carbon Dioxide 24 BUN 26 H Creatinine 1.02 Narrative Narrative: EKG 05/2024 Vent. Rate : 106 BPM Atrial Rate : 106 BPM P-R Int : 134 ms QRS Dur : 94 ms QT Int : 350 ms P-R-T Axes : 72 119 59 degrees QTcB Int : 464 ms Sinus tachycardia Left atrial enlargement Left posterior fascicular block Possible Inferior infarct , age undetermined Abnormal ECG When compared with ECG of 29-Feb-2012 14:14, MANUAL COMPARISON REQUIRED PREVIOUS ECG IS INCOMPATIBLE CT Chest 2023 IMPRESSION: Postoperative changes of ascending aorta graft repair, with no evidence of complication. Aorta is dilated at the proximal arch above the graft measuring up to 4.4 cm, similar to prior studies. 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 Essential hypertension Aneurysm of aortic arch Vitamin D deficiency Osteoporosis Family History Family History Father HTN (hypertension) Mother HTN (hypertension) Surgical History Surgical History Hx of cystoscopy (06/24/24) History of aortic aneurysm repair History of AAA (abdominal aortic aneurysm) repair Hx of colonoscopy Hx of hysterectomy History of surgery Hx of cholecystectomy History of appendectomy Social History Social History (Updated 07/27/24 @ 12:29 by Rosa Spivey RN) Household Members: None Housing: Apartment Housing Other:: senior housing Are you a primary respiratory care technician to a significant other at home: No Do you presently have visiting nurse or other home services: No Alcohol intake: unknown Patient Tobacco Use Status: Current everyday Tobacco user Tobacco use type: Cigarette Cigarettes Per Day: 10 Years Smoked: 50 e-Cigarette/Vaping Use: Never Used Use of substances other than those prescribed or required for medical reasons: No Have you been hit, kicked, punched, or otherwise hurt by someone within the past year? If so, by whom?: No Advance Directives: Yes Advance Directives Information Provided: No Advance Directives on File: Yes Advance Directives Date on File: 02/08/23 service: No Current occupational status: retired Cognitive needs: No Hearing needs: No Vision needs: Yes Meds Allergies Allergy/AdvReac Type Severity Reaction Status Date / Time No Known Allergies Allergy Verified 07/31/24 06:22 [No Known Allergies*] Home Medications ?Medication ?Instructions ?Recorded ?Confirmed ?Last Taken ?Type cholecalciferol (vitamin D3) 25 25 mcg PO DAILY 09/19/20 07/27/24 Unknown History mcg (1,000 unit) capsule vit C 250 mg-vit E 90 mg-zinc 40 1 tab PO BID 01/20/21 07/27/24 Unknown History mg-copper 1 [id number] capsule (PreserVision AREDS-2) docusate sodium 100 mg capsule 100 mg PO DAILY 10/31/21 07/27/24 Unknown History (Colace) Exam Airway Mallampati Class: III TM Dist: >3cm Neck ROM: Full Denture: Upper Assessment and Plan Assessment Anesthesia Assessment: Anesthesia Plan Discussed Final Anesthetic Review NPO: Yes ASA Class: III Final Preanesthetic Review: No Changes in Pt Med Stat, Meds/Allgs Chart Reviewed, Consent Obtained/Reviewed and Anes Risks/Benef Reviewed Patient Risk: Intermediate Procedure Risk: Low Anesthetic Plan Anesthetic Plan: GA Disposition: Standard PACU
[2024-07-31] VITALS (7 sets, daily range): BP systolic 119–142; BP diastolic 51–60; PULSE 61–69; RESP 16–18; TEMP 36.3–36.7; O2SAT 93–96; BMI 25.1
--- NOTE | ~2024-07-31 | FL_ITS ---
EXAMINATION: FL GUIDANCE ONLY HISTORY: bilateral stones COMPARISON: Correlation is made with a CT of the abdomen and pelvis without contrast dated 06/23/2024. TECHNIQUE: Fluoroscopy time: 5.5 seconds. Cumulative Dose: 1.36 mGy. Images: 4. FINDINGS: Images demonstrate placement of bilateral nephroureteral stents. FL/FL guidance in OR IMPRESSION: Fluoroscopy during procedure. Please see procedure report for additional information. Electronically signed by: Marco Hernandez MD 07/31/2024 09:08 AM EDT
[2024-07-31] MEDS: Lactated Ringers 1,000 ML 100 ML IVCONT (06:43)
--- NOTE | 2024-07-31 07:39 | MHC.SHP ---
Pre-Procedural Eval Section A - 24 Hr Update-Section A only Date of Service: 07/31/24 The patient is an INPATIENT: No Changes since office visit: No Cold of Flu in the past 2 weeks, No New Medical Problems, No Changes in Medication and No Patient answered all questions The patient has been examined within 24 hours of the surgical procedure. The History & Physical has been completed within 30 days and I have reviewed it.: Yes Section B - Complete if H&P > 30 days Chief Complaint: Calculus of ureter Details of Present Illness: cysto, bilateral stent removal, retrogrades, ureteroscopy, laser and stone basketing Relevant Family History (Specify if Yes): No Relevant Social History: None Present Medications: see Short Stay Collaborative assessment Medical History: No relevant PMH History of Previous Operations: Relevant previous surgery/procedure and date(s) Allergies: Allergies Allergy/AdvReac Type Severity Reaction Status Date / Time No Known Allergies Allergy Verified 07/31/24 06:22 [No Known Allergies*] Review of Systems Sugical H&P ROS: Negative: Constitution, Cardiovascular, Respiratory, Neurological, Psychiatric, Hem-Onc, Allergic/Immunologic, Gastrointestinal, Genitourinary, Musculoskeletal, Integumentary, Endocrine and Eyes/Ears/Nose/Throat Exam Surgical H&P Exam: Normal: HEENT, Normal: Heart, Normal: Lungs, Normal: Extremities, Normal: Abdomen, Normal: Skin and Normal: Neurological Plan Diagnosis/Plan: Unchanged (see above) I have reviewed the history and physical and performed a pertinent physical examination on my patient. No changes have occurred unless specified. Time Spent With Patient Time: Total time managing care of this patient today ____ minutes.
--- NOTE | 2024-07-31 08:25 | P.OP_ITS ---
Operative Note Operative Note Date of Service: 07/31/24 Narrative: PreOperative Diagnosis: bilateral distal ureteric stones Post Operative Diagnosis: bilateral distal ureteric stones Procedure: - cystoscopy, right stent removal, right retrograde - right ureteroscopy, laser lithotripsy, stone basketing - cystoscopy, left stent removal, left retrograde - left ureteroscopy, stone basketing Surgeon: Dr Murtaza Beckman Anesthesia: General Indications for procedure: prior admission through emergency room with bilateral distal ureteric o bstructing stones. Stents had been placed at that point in time. Presents today for stent removal and stone procedures. Procedure: After informed consent was verified the patient was brought to the operating room and placed in a supine position. Anesthesia was administered per protocol. The patient was placed in a modified dorsal lithotomy position and prepped and draped in a sterile fashion. Safety pause time-out and side of surgery were confirmed. Images were available for review. Antibiotic administration confirmed. A 22 Brazilian cystoscope was inserted per urethra. The urethra was without abnormality. The bladder was normal in its entirety. Both ureteric orifices were seen in normal position. Ureteric stent was emerging from both ureteric orifices. A sensor guidewire was placed up to the level of the renal pelvis on the right side alongside the stent. The right-sided stent was then removed. Retrograde examination performed with filling defect. The semi rigid ureteral scope was placed alongside the Sensor guidewire. Stone was encountered proximally 15 cm from the ureteric orifice.. Using a 365 micro holmium laser fiber the stone was broken into small pieces using a combination of hammer and dusting techiques. Stone fragments were removed from the ureter using a 2.4 Brazilian ZeroTip basket. A similar procedure was then performed on the left-hand side. A sensor guidewire was placed up to the level of the renal pelvis on the Left side alongside the stent. The left-sided stent was then removed. Retrograde examination performed showed no clear filling defect The semi rigid ureteral scope was placed alongside the Sensor guidewire. A small stone Stone was encountered proximally 10 cm from the ureteric orifice. Stone fragments were removed from the ureter using a 2.4 Brazilian ZeroTip basket. The bladder was emptied. The patient tolerated the procedure well and was extubated in the operating room. They were transferred in stable condition to the recovery area. Pathology: stones Drains:
== END 2024-07-31 09:30 | disposition home or self-care (01) ==
PROVIDERS: PCP Internal Medicine; Visit Provider Urology
PROC: (CPT 52353; principal; 2024-07-31 07:30)
DX: N20.1 Calculus of ureter (principal); Z87.442 Personal history of urinary calculi; Z96.0 Presence of urogenital implants; R31.29 Other microscopic hematuria; I10 Essential (primary) hypertension; E55.9 Vitamin D deficiency, unspecified; E78.1 Pure hyperglyceridemia; M81.0 Age-related osteoporosis without current pathological fracture; Z86.73 Personal history of transient ischemic attack (TIA), and cerebral infarction without residual deficits; Z79.899 Other long term (current) drug therapy; F17.210 Nicotine dependence, cigarettes, uncomplicated; Z98.890 Other specified postprocedural states
CPT/HCPCS: 52353; 52352; 82365; 88300; C1758; C1769; J0131; J0690; J1100; J2003; J2405; J2704; J3010; Q9967

== ENCOUNTER → 2024-07-31 06:00 | Outpatient (BNV) | payer MEDICARE, SELFPAY | PROVIDERS: PCP Internal Medicine; Visit Provider Urology | DX: N20.1 Calculus of ureter (principal) | CPT/HCPCS: 52353; 74420 ==

== ENCOUNTER → 2024-08-02 12:47 | Outpatient (BNVA) | payer MEDICARE, SELFPAY | PROVIDERS: PCP Internal Medicine; Visit Provider Internal Medicine | DX: I10 Essential (primary) hypertension (principal); E78.1 Pure hyperglyceridemia; N20.0 Calculus of kidney | CPT/HCPCS: 99212 ==

== ENCOUNTER → 2024-08-02 12:47 | Outpatient (AMB) | payer MEDICARE, SELFPAY ==
[2024-08-02 13:39] VITALS: BP 134/70; PULSE 71; RESP 15; TEMP 36.5; O2SAT 98; BMI 25.2
--- NOTE | 2024-08-02 13:39 | MHC.PC.OV ---
Vital Signs 08/02/24 13:39 Height 5 ft 3 in Weight 142 lb BMI 25.2 BP 134/70 Blood Pressure Location Lt brachial Position Sitting Respiration 15 Pulse 71 Pulse Source Pulse Oximeter Temp 97.7 F Temp Source Oral Pulse Oximetry (%) 98 Oxygen Delivery Method Room Air Intake Visit Reasons: 5 months follow up - see comments Intake Note: Pt is here today for her 5mo. f/u labs Allergies No Known Allergies [No Known Allergies*] Allergy (Verified 08/02/24 13:53) Medication List - Last Reconciled 08/02/24 by Hue Frost MD atorvastatin 10 mg PO DAILY calcium citrate 500 mg (2 x 250 mg calcium) PO BID 90 days cholecalciferol (vitamin D3) 25 mcg PO DAILY docusate sodium (Colace) 100 mg PO DAILY metoprolol tartrate 12.5 mg (1/2 x 25 mg) PO BID naproxen 500 mg PO BID PRN 7 days tamsulosin 0.4 mg PO BEDTIME 14 days trimethoprim 100 mg PO DAILY 90 days vit C,C-Ux-serfe-lutein-zeaxan 250-90-40-1 mg (PreserVision AREDS-2) 1 tab PO BID Tobacco use date assessed: 08/02/24 Fall risk assessment: No Falls in past year Last assessed Fall Risk: 08/02/24 Dental Screening Dental Screen Date: 08/02/24 Did you have a dental visit in the last 12 months?: No Did you have a dental problem in the last 6 months where you did not have access to dental care?: No Was dental information given to patient?: Patient has dentist HPI 5 months follow up - see comments HPI Details 79-year-old female with history of hypertension, mixed hyperlipidemia, aortic aneurysm status post repair here today for a follow-up. She has been compliant with her diet, but unable to exercise much due to recent admission for severe hydronephrosis and hydroureter right kidney secondary to group of obstructing ureteral calculi, and moderate hydronephrosis and hydroureter of the left kidney secondary to a 6 x 6 mm group of obstructing stoneszt the UVJ., and underwent cystoscopy bilateral stent placement with subsequent bilateral stent removal, ureteroscopy, laser and stone basketing on 07/31/[address] Beckman. She has been prescribed trimethoprim 100 mg to take once a day and tamsulosin 0.4 mg at bedtime to be taken for 14 days She has been feeling better, had recent fasting labs done which showed elevated triglycerides, and low HDL cholesterol but total cholesterol and LDL cholesterol are within normal limits. 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 Essential hypertension Aneurysm of aortic arch Vitamin D deficiency Osteoporosis Surgical History Hx of cystoscopy (06/24/24) History of aortic aneurysm repair History of AAA (abdominal aortic aneurysm) repair Hx of colonoscopy Hx of hysterectomy History of surgery Hx of cholecystectomy History of appendectomy Family History Father HTN (hypertension) Mother HTN (hypertension) Social History Household Members: None Housing: Apartment Housing Other:: senior housing Are you a primary animal care technician to a significant other at home: No Do you presently have visiting nurse or other home services: No Alcohol intake: unknown Patient Tobacco Use Status: Current everyday Tobacco user Tobacco use type: Cigarette Cigarettes Per Day: 10 Years Smoked: 50 e-Cigarette/Vaping Use: Never Used Advance Directives Date on File: 02/08/23 service: No Current occupational status: retired Cognitive needs: No Hearing needs: No Vision needs: Yes Questionnaire PHQ-9 Over the last 2 weeks, how often have you been bothered by any of the following problems? Depression Screening Interpretation: Negative Depression Screening Done: Yes Source: Developed by Drs. Marco Rain, Fabiana Ortega, Uziel Light and colleagues, with an educational taty from [employer]. Thrive Questionnaire Date Thrive assessed: 07/06/24 ELYSSA-7 AMB Questionnaire ELYSSA-7 Date ELYSSA - 7 assessed: 07/06/24 Source: Developed by Drs. Marco Rain, Fabiana Ortega, Uziel Light and colleagues, with an educational taty from [employer]. Review of Systems Const Denies chills and Denies fever(s) ENT Reports no additional complaints Card Reports no additional complaints and Denies syncope Resp Denies cough GI Denies abdominal pain and Denies heartburn Reports as per HPI and Denies change in libido Musc Reports no additional complaints Neuro Denies syncope Psych Denies change in libido Endo Denies change in libido Simon/Lymph Reports no additional complaints Aller/Immun Reports no additional complaints Physical exam (Primary Care) Vital Signs: Last Vital Signs Temp 97.7 F 08/02/24 13:39 Pulse 71 08/02/24 13:39 Resp 15 08/02/24 13:39 BP 134/70 08/02/24 13:39 Pulse Ox 98 08/02/24 13:39 Oxygen Delivery Method Room Air 08/02/24 13:39 BMI result Body Mass Index 25.2 Tobacco/Smoking Status: Tobacco use Status Tobacco use date assessed 08/02/24 08/02/24 13:42 Patient Tobacco Use Status Current everyday Tobacco 08/02/24 13:42 Tobacco use type Cigarette 08/02/24 13:42 e-Cigarette/Vaping Use Never Used 08/02/24 13:42 Depression Screening Interpretation: Negative Thrive Assessment: Date of Thrive Assessment Date Thrive assessed 07/06/24 08/02/24 13:42 Const Other: Alert oriented x3, no acute cardiorespiratory distress, normal gait HENMT Face and sinus: Yes face symmetric Mouth: Normal oral and palatal mucosa present, oropharynx normal and moist mucous membranes Eyes General: appearance normal, both eyes and all related structures Neck Neck: Yes full ROM, Yes no lymphadenopathy and Yes supple Thyroid: Thyroid normal Resp Effort & Inspection: normal respiratory effort and able to speak in complete sentences Auscultation: clear to auscultation bilaterally Cardio Other: S1-S2 present regular rate and rhythm GI Palpation (GI): Soft to palpation, nontender, no guarding and no masses General: Yes no CVA tenderness Back/Spine/Pelvis Back: no CVA tenderness and No back tenderness Skin General skin exam: no rashes or lesions noted Neuro General: gait normal, tone normal, moves all extremities, Normal light touch and pain sensation and no focal motor deficits Extrem General: Yes full ROM, Yes no joint enlargement, Yes no pedal edema, Yes no calf tenderness and Yes normal gait Psych Appearance: grossly normal and well kempt Mental Status: mental status grossly normal Speech and movement: Normal speech and movement present Affect: normal affect Attitude: cooperative Thought process: Normal thought process present Results Reviewed Results Reviewed: Name: Radha Crews Age/Sex: 79/F : 1945 Unit#: [id number] Attend Dr: Jaskaran Bernstein MD Re06/22/24 Status: DIS IN Location: [place] [address] Disch: 06/26/24 SPEC : [id number] EVELYNE: 06/26/24 STATUS: COMP REQ : [id number] RECD: 06/26/[address]: Jaskaran Bernstein MD COMP: 06/26/24 ENTERED: 06/26/[address]: Hue Frost MD ORDERED: CBC No Diff Test Result Flag Reference WBC 10.6 4.8-10.8 X10*3/uL RBC 4.24 4.20-5.50 X10*6/uL HGB 12.4 12.0-16.0 g/dl HCT 37.0 37.0-47.0 % MCV 87.3 80.0-98.0 fL MCH 29.2 27.0-33.0 pg MCHC 33.5 31.0-35.0 g/dl RDW 14.2 11.0-16.0 % PLT 236 160-400 X10*3/uL MPV 9.6 9.4-12.3 fL NRBC Pct Auto 0.0 0.0-0.2 /100WBC NRBC Abs Auto 0.000 0.0-0.012 X10*3/uL Name: Radha Crews Age/Sex: 79/F : 1945 Unit#: [id number] Attend Dr: Jaskaran Bernstein MD Re06/22/24 Status: DIS IN Location: [place] [address]- Disch: 06/26/24 SPEC : [id number] EVELYNE: 06/26/24 STATUS: COMP REQ : [id number] RECD: 06/26/[address]: Jaskaran Bernstein MD COMP: 06/26/24 ENTERED: 06/26/[address]: Hue Frost MD ORDERED: BMP Test Result Flag Reference Sodium 139 135-145 mmol/L Potassium 3.5 3.3-5.1 mmol/L CL 106 96-108 mmol/L CO2 24 22-29 mmol/L Gap 13 12-20 BUN 26 H 9-16 mg/dL Creat 1.02 0.5-1.4 mg/dL Estimated CrCl 40.1 Provided height and weight: 160.02 cm, 66.1 kg. eGFR (calculated from the MDRD study equation) and eCrCl (calculated from the Cockcroft-Gault equation) are based on different parameters and may not yield comparable results. If eCrCl result is absurd, please check patient's height/weight. eGFR 52 Chronic Kidney Disease: Estimated GFR < 60 mL/min/1.73m2 Severe Kidney Disease: Estimated GFR < 15 mL/min/1.73m2 Glucose, Random 104 60-115 mg/dL CA 9.0 8.4-10.2 mg/dL Name: Radha Crews Age/Sex: 79/F : 1945 Unit#: [id number] Attend Dr: Hue Frost MD Re07/26/24 Status: DEP REF Location: [facility] Disch: SPEC : [id number] EVELYNE: 07/26/24 STATUS: COMP REQ : [id number] RECD: 07/26/[address]: Hue Frost MD COMP: 07/26/24 ENTERED: 07/26/[address]: ORDERED: AST, ALT, Lipid Panel Test Result Flag Reference AST (GOT) 23 5-31 U/L ALT (GPT) 12 0-31 U/L Triglyceride 285 H <150 mg/dL Desirable Triglyceride: less than 150 mg/dL Borderline High Triglyceride 150-199 mg/dL High Triglyceride: 200-499 mg/dL Very High Triglyceride: greater than or equal to 5OO mg/dL Cholesterol 155 <200 mg/dL Desirable Cholesterol: less than 200 mg/dL Borderline High Cholesterol: 200-239 mg/dL High Cholesterol: greater than 239 mg/dL LDL Calculated 64 <100 mg/dL Desirable LDL: less than 100 mg/dL Near Optimal/Above Optimal LDL: 110-129 mg/dL Borderline High LDL: 130-159 mg/dL High LDL: 160-189 mg/dL Very High LDL: greater than or equal to 190 mg/dL HDL 34 L >40 mg/dL Desirable HDL: greater than 40 mg/dL Note: This HDL assay may give artificially low results in patients with liver disease. Coding Level of Care Code Est Pt Level 4 (58066) Diagnoses Essential hypertension I10 Hypertriglyceridemia E78.1 Recurrent kidney stones N20.0 Assessment & Plan Assessment & Plan (1) Essential hypertension: Code(s): I10 - Essential (primary) hypertension Category: Medical Plan: Blood pressure stable controlled on present treatment, will continue with the metoprolol tartrate 12.5 mg twice a day (2) Hypertriglyceridemia: Code(s): E78.1 - Pure hyperglyceridemia Category: Medical Plan: Stressed importance of adhering to healthy eating habits and regular exercise, avoid lot of sugars sweet drinks and simple carbs, continue with atorvastatin 10 mg daily, encouraged to stay active (3) Recurrent kidney stones: Code(s): N20.0 - Calculus of kidney Category: Medical Plan: Currently followed by Dr. Beckman
--- OUTSIDE RECORDS SUMMARY | 2024-08-02 14:47 | XMS_ITS | Data Portability ---
Author Organization [place] - [facility], Allergy Address [address] [address] Care Team Providers Care Legislative Aide Name Role Phone JOHANAJalenNURYS Primary Care Provider [phone] Assessment Encounter Date Assessment Date Assessment LastModified [...] Recorded Time Impacted cerumen of bilateral ears [id number] [id number] Active 2020 Impacted cerumen, bilateral ; Note: Date Diagnosed : 09/13/2020 12:15 PM (H61.23) [facility]12 Problem Notes None recorded. Procedures Surgical History Date Name Laterality Status Provider Name and Address Organization Details Recorded Time Cerumen removal without microscope bilat completed MARRY MA PA-C 100 [facility], [place], [address], [place] - [facility] 03/20/2024 13:23:32 Imaging Results None recorded. Procedure [...] 70 mg tablet active Medicatio n ID: [id number] Br and Name: alendrona te Send Method: [...] mg chewable tablet active Medicatio n ID: [id number] Br and Name: Aspirin Childrens Send Method: E-Prescri bed Subs Allowed: subs [place] Medica tionGener icName: Aspirin Childrens Not Available Not Available Not Available metoprolol tartrate 25 mg tablet TAKE 1/2 (ONE-HALF ) TABLET BY MOUTH TWICE DAILY active Not Available Not Available No t Available PreserVisi on AREDS 4,296 mcg-226 mg-90 mg capsule active Medicatio n ID: [id number] Br and Name: PreserVis ion AREDS Sen d Method: E-Prescri bed Subs Allowed: subs [place] Medica tionGener icName: PreserVis ion AREDS Not Available Not Available Not Available Vitals Date Recorded Body height Body mass index (BMI) Body weight Provider Name and Address Organization Details Last Updated DateTime 03/20/2024 160.02 cm 26.6 kg/m2 77674.86 g Blaise Robins [place] - [facility] 03/20/2024 13:09:00 Social History None recorded. Functional Status None recorded. Mental Status None recorded. Family History Nothing Reported. Medical History No medical history recorded. Gynecological HistoryNo gynecological history recorded. Obstetrics History GPAL:G 0 P 0 0 0 0 Past Encounters Encounter ID Performer Location Encounter Start Date Encounter Closed Date Diagnosis/Indication Diagnosis SNOMED-CT Code Diagnosis ICD10 Code Diagnosis Note [id number] GURINDER MENG MD [facility] [address] [address] 03/20/2024 12:45:18 03/20/2024 13:25:57 Impacted cerumen of bilateral ears [id number] 295587 H61.23 Health Concerns Section Related Observation LastModified by Organization Detai ls LastModified Time None Recorded Concern Status LastModified by Organization Details LastModified Time None Recorded Advance Directives Directive None Recorded Payers Encounter Date Sequence Insurance Name Policy Number Policy Mendes Covered Member ID Mendes Member ID Guarantor Name 03/20/[address] [place] [address] [id number] 04 Radha Crews [id number] Radha Crews Notes Date Note Type Note Provider Name and Address Organization Details Recorded Time 03/20/2024 text/html 79 year old female presents for evaluation of ears. Thinks she has a cerumen impaction, feels full. There has been no change in baseline hearing, no otorrha, and no otalgia. GURINDER MENG MD [address] [place] [address], [phone], [facility] - [facility] 03/20/2024 21:06:37 OBGyn Episode No OBEpisode recorded.
== END ==
LOC: HO.HMCC 12:48
PROVIDERS: PCP Internal Medicine; Visit Provider Internal Medicine
DX: I10 Essential (primary) hypertension (principal); E78.1 Pure hyperglyceridemia; N20.0 Calculus of kidney

== ENCOUNTER 2024-08-09 11:12 | Outpatient (AMB) | payer MEDICARE, SELFPAY ==
--- NOTE | 2024-08-09 11:25 | MHC.OFFWIV ---
Intake Vital Signs 08/09/24 11:28 Weight 141 lb BP 118/66 Blood Pressure Location Rt brachial Position Sitting Pulse 75 Pulse Source Pulse Oximeter Pulse Oximetry (%) 97 Oxygen Delivery Method Room Air Intake Visit Reasons: EP-neck pain Intake Note: Patient here for neck pain and off balance since wednesday. Patient Tobacco Use Status: Current everyday Tobacco user Allergies No Known Allergies [No Known Allergies*] Allergy (Verified 08/09/24 11:28) Do you need a note to return to daycare/school/sports/work: No HPI HPI Comments History of Present Illness Details History of Present Illness - The patient is an 79-year-old female presenting with neck pain and dizziness, which began 3 days ago - The neck stiffness is without trauma or fall. The discomfort impairs head movement, she has not utilized typical lzzc-fye-bbgihsz pain relief medications like ibuprofen or Motrin. - Denies upper respiratory systems as she denies symptoms like ear pain, fever, or congestion. - Dizziness, as in she feels off balance. - Recent med hx includes nephrolithiasis episode that recently included lithotripsy. Physical Exam General: Cooperative, healthy appearing, comfortable, no acute distress and well developed Orientation: Patient oriented x3 Limitations: Neck pain and stiffness Head: Normal to inspection Ears: Hearing grossly normal bilaterally, EAC with cerumen bilaterally, once removed TM's with fluid noted however no infection Nose: Normal External nose present Face and sinus: Normal facial exam Mouth: posterior oropharynx erythema Eyes: Appearance normal, both eyes and all related structures Neck: Normal visual inspection, limited ROM due to stiffness Respiratory: Normal respiratory effort and able to speak in complete sentences. 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 Essential hypertension Aneurysm of aortic arch Vitamin D deficiency Osteoporosis Surgical History Hx of cystoscopy (06/24/24) History of aortic aneurysm repair History of AAA (abdominal aortic aneurysm) repair Hx of colonoscopy Hx of hysterectomy History of surgery Hx of cholecystectomy History of appendectomy Family History Father HTN (hypertension) Mother HTN (hypertension) Social History Household Members: None Housing: Apartment Housing Other:: senior housing Are you a primary wound care rn to a significant other at home: No Do you presently have visiting nurse or other home services: No Alcohol intake: unknown Patient Tobacco Use Status: Current everyday Tobacco user Tobacco use type: Cigarette Cigarettes Per Day: 10 Years Smoked: 50 e-Cigarette/Vaping Use: Never Used Advance Directives Date on File: 02/08/23 service: No Current occupational status: retired Cognitive needs: No Hearing needs: No Vision needs: Yes Review of Systems Const All systems reviewed & are unremarkable except as noted in HPI and below Physical Exam Vital Signs: Last Vital Signs Pulse 75 08/09/24 11:28 BP 118/66 08/09/24 11:28 Pulse Ox 97 08/09/24 11:28 Oxygen Delivery Method Room Air 08/09/24 11:28 Assessment & Plan Assessment & Plan (1) Muscle spasms of neck: Code(s): M62.838 - Other muscle spasm Plan: To address the patient's cervicalgia and associated dizziness, I have initiated treatment including a muscle relaxant to alleviate muscle tension and recommended ibuprofen for its anti-inflammatory effects. The dizziness appears to be connected to the noted cerumen impaction and otitis media with effusion; I have prescribed Flonase, a nasal steroid spray, aimed at reducing inner ear fluid over a week-long course. Ear wax impaction was partially cleared to further ameliorate dizziness. Informing the patient about the possible sedative effects of the muscle relaxant, she is advised to take it at night. The prescriptions are structured with potential full coverage in mind, noting the insurer's preference for 90-day supplies to facilitate access. Patient was informed and verbally consented to the use of an ambient scribe for clinic note documentation during this visit. (2) Acute effusion of both middle ears: Code(s): H65.193 - Other acute nonsuppurative otitis media, bilateral Plan: as above Medications: New fluticasone propionate 50 mcg/actuation administer into each nostril 1 spray intranasal Q12H 90 days 48 grams 0RF cyclobenzaprine 5 mg PO Q8H PRN 20 tabs 0RF Muscle Spasm Coding Level of Care Code Est Pt Level 4 (78367) Diagnoses Muscle spasms of neck M62.838 Acute effusion of both middle ears H65.193
[2024-08-09 11:28] VITALS: BP 118/66; PULSE 75; O2SAT 97
--- OUTSIDE RECORDS SUMMARY | 2024-08-09 13:32 | XMS_ITS | Data Portability ---
Author Organization [place] - [facility], Allergy Address [address] [address] Care Team Providers Care Auto Body Service Mechanic Name Role Phone JOHANAJalenNURYS Primary Care Provider [...] Recorded Time Impacted cerumen of bilateral ears [id number] 44566 Active 2020 Impacted cerumen, bilateral ; Note: Date Diagnosed : 09/13/2020 12:15 PM (H61.23) Not Available [facility]12 Problem Notes None recorded. Procedures Surgical History Date Name Laterality Status Provider Name and Address Organization Details Recorded Time Cerumen removal without microscope bilat completed MARRY MA PA-C 100 [facility] 100, [place], [address], [place] - [facility] 03/20/2024 13:23:32 Imaging Results None recorded. Procedure [...] 70 mg tablet active Medicatio n ID: [id number] Br and Name: alendrona te Send Method: [...] mg chewable tablet active Medicatio n ID: [id number] Br and Name: Aspirin Childrens Send Method: E-Prescri bed Subs Allowed: subs [place] Medica tionGener icName: Aspirin Childrens Not Available Not Available Not Available metoprolol tartrate 25 mg tablet TAKE 1/2 (ONE-HALF ) TABLET BY MOUTH TWICE DAILY active Not Available Not Available No t Available PreserVisi on AREDS 4,296 mcg-226 mg-90 mg capsule active Medicatio n ID: [id number] Br and Name: PreserVis ion AREDS Sen d Method: E-Prescri bed Subs Allowed: subs [place] Medica tionGener icName: PreserVis ion AREDS Not Available Not Available Not Available Vitals Date Recorded Body height Body mass index (BMI) Body weight Provider Name and Address Organization Details Last Updated DateTime 03/20/2024 160.02 cm 26.6 kg/m2 05942.86 g Blaise Robins [place] - [facility] 03/20/2024 13:09:00 Social History None recorded. Functional Status None recorded. Mental Status None recorded. Family History Nothing Reported. Medical History No medical history recorded. Gynecological HistoryNo gynecological history recorded. Obstetrics History GPAL:G 0 P 0 0 0 0 Past Encounters Encounter ID Performer Location Encounter Start Date Encounter Closed Date Diagnosis/Indication Diagnosis SNOMED-CT Code Diagnosis ICD10 Code Diagnosis Note [id number] GURINDER MENG MD [facility] [address] [address] 03/20/2024 12:45:18 03/20/2024 13:25:57 Impacted cerumen of bilateral ears [id number] [id number] H61.23 Health Concerns Section Related Observation LastModified by Organization Detai ls LastModified Time None Recorded Concern Status LastModified by Organization Details LastModified Time None Recorded Advance Directives Directive None Recorded Payers Encounter Date Sequence Insurance Name Policy Number Policy Mendes Covered Member ID Mendes Member ID Guarantor Name 03/20/[address] [place] [address] [id number] 04 Radha Crews [id number] Radha Crews Notes Date Note Type Note Provider Name and Address Organization Details Recorded Time 03/20/2024 text/html 79 year old female presents for evaluation of ears. Thinks she has a cerumen impaction, feels full. There has been no change in baseline hearing, no otorrha, and no otalgia. GURINDER MENG MD [address] [place] [address], [phone], [facility] - [facility] 03/20/2024 21:06:37 OBGyn Episode No OBEpisode recorded.
== END 2024-08-09 13:26 | disposition home or self-care (01) ==
PROVIDERS: PCP Internal Medicine; Visit Provider Physician Assistant
DX: M62.838 Other muscle spasm (principal); H65.193 Other acute nonsuppurative otitis media, bilateral

== ENCOUNTER → 2024-08-09 11:12 | Outpatient (BNVA) | payer MEDICARE, SELFPAY | PROVIDERS: PCP Internal Medicine; Visit Provider Physician Assistant | DX: M62.838 Other muscle spasm (principal); H65.193 Other acute nonsuppurative otitis media, bilateral | CPT/HCPCS: 99212 ==

== ENCOUNTER 2024-08-25 12:48 | Outpatient (REF) | payer MEDICARE, SELFPAY ==
--- NOTE | ~2024-08-25 | US_ITS ---
CLINICAL HISTORY: N20.1 - Calculus of ureter US renal with Color Doppler Comparison: US/SR - US RENAL BI - 12/18/21 11:59 EDT Findings: Right kidney normal size and echotexture, 10.0 cm length. No hydronephrosis. Normal color flow. Nonobstructing caliceal stones as follows: Lower pole measuring 2 x 2 x 4 mm previously measuring 6 x 5 x 4 mm, midpole measuring 4 x 3 x 3 mm previously measuring 7 x 5 x 5 mm and midpole measuring 3 x 3 x 2 mm previously measuring 8 x 5 x 10 mm 3 mm renal cortical cyst lower pole. Left kidney normal size and echotexture, 10.0 cm length. No hydronephrosis. Normal color flow. Nonobstructing caliceal stones as follows: Lower pole measuring 4 x 3 x 2 mm previously measuring 10 x 10 x 11 mm, midpole measuring 4 x 3 x 3 mm previously measuring 4 x 4 x 6 mm and upper pole measuring 3 x 4 x 4 mm previously measuring 5 x 4 x 5 mm. Impression: 1. Bilateral nephrolithiasis. No hydronephrosis. 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
--- OUTSIDE RECORDS SUMMARY | 2024-08-25 13:13 | XMS_ITS | Data Portability ---
Author Organization [place] - [facility], Allergy Address [address] [place] [address] Care Team Providers Care Crowd Controller Name Role Phone JOHANAJalenNURYS Primary Care Provider [...] PA-C Not available Not available Not available Establish ed 15 2024 11:30A M SHIRA JACKSON PA-C Not available Not available Not available Lab None recorded. Referral None recorded. Procedures None recorded. Surgeries None recorded. Imaging None recorded. Medication Orders None recorded. Patient TargetsNo targets recorded. Patient InstructionsNo instructions recorded. Reason for Referral None Reported. Problems Name Problem SNOMED Code Status Onset Date Resolution Date Notes Provider Name and Address Organization Details Recorded Time Impacted cerumen of bilateral ears [id number] 91453 Active 2020 Impacted cerumen, bilateral ; Note: Date Diagnosed : 09/13/2020 12:15 PM (H61.23) Not Available [facility] 4 02:52:12 Problem Notes None recorded. Procedures Surgical History Date Name Laterality Status Provider Name and Address Organization Details Recorded Time 4 Cerumen removal without microscope bilat completed MARRY MA PA-C [address] [place] [address],[place] [address], [place], [address], [place] - [facility] 03/20/2024 13:23:32 Imaging Results None recorded. Procedure [...] 70 mg tablet active Medicatio n ID: [id number] Br and Name: alendrona te Send Method: [...] mg chewable tablet active Medicatio n ID: [id number] Br and Name: Aspirin Childrens Send Method: E-Prescri bed Subs Allowed: subs [place] Medica tionGener icName: Aspirin Childrens Not Available Not Available Not Available metoprolol tartrate 25 mg tablet TAKE 1/2 (ONE-HALF ) TABLET BY MOUTH TWICE DAILY active Not Available Not Available No t Available PreserVisi on AREDS 4,296 mcg-226 mg-90 mg capsule active Medicatio n ID: [id number] Br and Name: PreserVis ion AREDS Sen d Method: E-Prescri bed Subs Allowed: subs [place] Medica tionGener icName: PreserVis ion AREDS Not Available Not Available Not Available Vitals Date Recorded Body height Body mass index (BMI) Body weight Provider Name and Address Organization Details Last Updated DateTime 03/20/2024 160.02 cm 26.6 kg/m2 21883.86 g Blaise Robins [place] - [facility] 03/20/2024 13:09:00 Social History None recorded. Functional Status None recorded. Mental Status None recorded. Family History Nothing Reported. Medical History No medical history recorded. Gynecological HistoryNo gynecological history recorded. Obstetrics History GPAL:G 0 P 0 0 0 0 Past Encounters Encounter ID Performer Location Encounter Start Date Encounter Closed Date Diagnosis/Indication Diagnosis SNOMED-CT Code Diagnosis ICD10 Code Diagnosis Note [id number] MARRY MA PA-C [facility] of [address] [address] 03/20/2024 12:45:18 03/20/2024 13:25:57 Impacted cerumen of bilateral ears [id number] H61.23 Health Concerns Section Related Observation LastModified by Organization Detai ls LastModified Time None Recorded Concern Status LastModified by Organization Details LastModified Time None Recorded Advance Directives Directive None Recorded Payers Encounter Date Sequence Insurance Name Policy Number Policy Mendes Covered Member ID Mendes Member ID Guarantor Name 03/20/2024 1 [facility] [id number] 04 Radha Crews [id number] Radha Crews Notes Date Note Type Note Provider Name and Address Organization Details Recorded Time 03/20/2024 text/html 79 year old female presents for evaluation of ears. Thinks she has a cerumen impaction, feels full. There has been no change in baseline hearing, no otorrha, and no otalgia. GURINDER MENG MD [address] [place] [address], [phone], [facility] - [facility] 03/20/2024 21:06:37 OBGyn Episode No OBEpisode recorded.
== END 2024-08-25 12:49 | disposition home or self-care (01) ==
LOC: HO.HMGCX 12:48
PROVIDERS: PCP Internal Medicine; Visit Provider Urology
DX: N20.1 Calculus of ureter (principal); N20.0 Calculus of kidney
CPT/HCPCS: 76775

== ENCOUNTER → 2024-08-25 13:00 | Outpatient (BNV) | payer MEDICARE, SELFPAY | PROVIDERS: PCP Internal Medicine; Visit Provider Radiology Diagnostic Radiology | DX: N20.0 Calculus of kidney (principal); N28.1 Cyst of kidney, acquired | CPT/HCPCS: 76775 ==

== ENCOUNTER 2024-09-27 13:39 | Outpatient (AMB) | payer MEDICARE, SELFPAY ==
--- OUTSIDE RECORDS SUMMARY | 2024-09-27 13:53 | XMS_ITS | Data Portability ---
Author Organization [place] - [facility], Allergy Address [address] [address] Care Team Providers Care Concrete Block Plant Supervisor Name Role Phone NURYS MARTÍNEZ Primary Care [...] that arise. [email or web address] Not available 03/20/2024 15:09:37 09/19/2024 09/19/2024 79yo female presents for cerumen impaction removal. Cerumen impaction removed bilaterally with instruments and suction. TMs are normal to inspection. Patient denies concern for hearing. Recommend 6-month follow-up for cerumen debridement, sooner with issues. [email or web address] Not available 09/19/2024 11:40:25 Plan of Treatment Reminders Order Date Submit Date Provider Last Modified By Organization Details Last Modified Time Details Appointments Establish ed 15 2024 11:30A M SHIRA [...] Recorded Time Impacted cerumen of bilateral ears [id number] 85287 Active 2020 Impacted cerumen, bilateral ; Note: Date Diagnosed : 09/13/2020 12:15 PM (H61.23) Not Available [facility] 4 02:52:12 Problem Notes None recorded. Procedures Surgical History Date Name Laterality Status Provider Name and Address Organization Details Recorded Time 5 Cerumen removal without microscope bilat completed ANGÉLICA DOSHI PA-C [address] [place] [address],[address], [address], [facility] 09/19/2024 11:38:35 4 Cerumen removal without microscope bilat completed MARRY MA PA-C [address] [place] [address],[place] [address], [place], [address], [facility] 03/20/2024 13:23:32 Imaging Results None recorded. Procedure Notes None recorded. Medical Equipment None Reported. Medications Name Sig Start Date Stop Date Status Note LastModified by Organization Details LastModified Time cefuroxime axetil 250 mg tablet TAKE 1 TABLET BY MOUTH TWICE DAILY FOR 7 DAYS active Not Available Not Available No t Available nicotine 14 mg/24 hr daily transderma l patch APPLY 1 PATCH TOPICALLY ONCE DAILY active Not Available Not Available No t Available atorvastat in 10 mg tablet TAKE 1 TABLET BY MOUTH ONCE DAILY active Not Available Not Available No t Available alendronat e 70 mg tablet active Medicatio n ID: [id number] Br and Name: alendrona te Send Method: E-Prescri bed Subs Allowed: subs [place] Medica tionGener icName: alendrona te Not Available Not Available Not Available trimethopr im 100 mg tablet TAKE 1 TABLET BY MOUTH ONCE DAILY FOR 90 DAYS active Not Available Not Available No t Available prednisolo ne acetate 1 % eye drops,susp ension INSTILL 1 DROP INTO RIGHT EYE 4 TIMES DAILY FOR 4 DAYS AFTER LASER DIRECTED active Not Available Not Available No t Available tamsulosin 0.4 mg capsule TAKE 1 CAPSULE BY MOUTH AT BEDTIME FOR 14 DAYS active Not Available Not Available No t Available Aspirin Childrens 81 mg chewable tablet active Medicatio n ID: [id number] Br and Name: Aspirin Childrens Send Method: E-Prescri bed Subs Allowed: subs [place] Medica tionGener icName: Aspirin Childrens Not Available Not Available Not Available cefuroxime axetil 500 mg tablet TAKE 1 TABLET BY MOUTH EVERY 12 HOURS active Not Available Not Available No t Available fluticason e propionate 50 mcg/actuat ion nasal spray,susp ension USE 1 SPRAY IN EACH NOSTRIL EVERY 12 HOURS active Not Available Not Available No t Available naproxen 500 mg tablet TAKE 1 TABLET BY MOUTH TWICE DAILY NEEDED FOR PAIN FOR 7 DAYS active Not Available Not Available No t Available cyclobenza mylene 5 mg tablet TAKE 1 TABLET BY MOUTH EVERY 8 HOURS NEEDED FOR MUSCLE SPASM active Not Available Not Available No t Available metoprolol tartrate 25 mg tablet TAKE 1/2 (ONE-HALF ) TABLET BY MOUTH TWICE DAILY active Not Available Not Available No t Available PreserVisi on AREDS 4,296 mcg-226 mg-90 mg capsule active Medicatio n ID: [id number] Br and Name: PreserVis ion AREDS Sen d Method: E-Prescri bed Subs Allowed: subs [place] Medica tionGener icName: PreserVis ion AREDS Not Available Not Available Not Available Vitals Date Recorded Body height Body mass index (BMI) Body weight Provider Name and Address Organization Details Last Updated DateTime 09/19/2024 160.02 cm 24.8 kg/m2 35406.93 g Basia James [place] - [facility] 09/19/2024 11:21:46 Date Recorded Body height Body mass index (BMI) Body weight Provider Name and Address Organization Details Last Updated DateTime 03/20/2024 160.02 cm 26.6 kg/m2 92024.86 g Blaise Robins [place] - [facility] 03/20/2024 13:09:00 Social History None recorded. Functional Status None recorded. Mental Status None recorded. Family History Nothing Reported. Medical History No medical history recorded. Gynecological HistoryNo gynecological history recorded. Obstetrics History GPAL:G 0 P 0 0 0 0 Past Encounters Encounter ID Performer Location Encounter Start Date Encounter Closed Date Diagnosis/Indication Diagnosis SNOMED-CT Code Diagnosis ICD10 Code Diagnosis Note [id number] MARRY MA PA-C [facility] of [address] [address] 03/20/2024 12:45:18 03/20/2024 13:25:57 Impacted cerumen of bilateral ears [id number] 427062 H61.23 [id number] ANGÉLICA DOSHI PA-C [facility] 100 [place] [address] 09/19/2024 11:16:57 09/19/2024 12:09:19 Impacted cerumen of bilateral ears [id number] 000842 H61.23 Health Concerns Section Related Observation LastModified by Organization Detai ls LastModified Time None Recorded Concern Status LastModified by Organization Details LastModified Time None Recorded Advance Directives Directive None Recorded Payers Insurance Date Sequence Insurance Name Policy Number Policy Mendes Covered Member ID Mendes Member ID Guarantor Name 09/19/[address] [place] [address] [id number] 04 Radha Crews [id number] Radha Crews Notes Date Note Type Note Provider Name and Address Organization Details Recorded Time 03/20/2024 text/html 79 year old female presents for evaluation of ears. Thinks she has a cerumen impaction, feels full. There has been no change in baseline hearing, no otorrha, and no otalgia. GURINDER MENG MD [address] [place] [address], [phone], [facility] - [facility] 03/20/2024 21:06:37 09/19/2024 text/html 79yo female presents for cerumen debridement. Reports no change in hearing. Denies ear pain, drainage, tinnitus, or Qtip use. GADIEL CHOI MD [address] [place] [address], [place], [address], [facility] - [facility] 09/19/2024 15:32:26 OBGyn Episode No OBEpisode recorded.
--- NOTE | 2024-09-27 14:16 | MHC.OFFVIS ---
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 Essential hypertension Aneurysm of aortic arch Vitamin D deficiency Osteoporosis Surgical History Hx of cystoscopy (06/24/24) History of aortic aneurysm repair History of AAA (abdominal aortic aneurysm) repair Hx of colonoscopy Hx of hysterectomy History of surgery Hx of cholecystectomy History of appendectomy Family History Father HTN (hypertension) Mother HTN (hypertension) Social History Household Members: None Housing: Apartment Housing Other:: senior housing Are you a primary home care coordinator to a significant other at home: No Do you presently have visiting nurse or other home services: No Alcohol intake: unknown Patient Tobacco Use Status: Current everyday Tobacco user Tobacco use type: Cigarette Cigarettes Per Day: 10 Years Smoked: 50 e-Cigarette/Vaping Use: Never Used Advance Directives Date on File: 02/08/23 service: No Current occupational status: retired Cognitive needs: No Hearing needs: No Vision needs: Yes Office Procedures Post Void Residual Post Residual Void Post Void Residual (PVR): 5 [id number] Void Residual by ultrasound Results AMB Urinalysis, Automated UA Leukoctes 125 Snehal/uL Last Edit by SMA Mi on 09/27/24 16:16 UA Nitrite Last Edit by SMA Mi on 09/27/24 16:16 UA Urobilinogen 0.2 mg/dL Last Edit by SMA Mi on 09/27/24 16:16 UA Protein 15 mg/dL Last Edit by SMA Mi on 09/27/24 16:16 UA pH 6.5 Last Edit by SMA Mi on 09/27/24 16:16 UA Blood 10 [place]/uL Last Edit by Bridger Santacruz, [facility] on 09/27/24 16:16 UA Specific [place] 1.010 Last Edit by Bridger Santacruz, [facility] on 09/27/24 16:16 UA Ketone Last Edit by Bridger Santacruz, [facility] on 09/27/24 16:16 UA Bilirubin 0 mg/dL Last Edit by Bridger Santacruz, [facility] on 09/27/24 16:16 UA Glucose 0 mg/dL Last Edit by Bridger Santacruz, [facility] on 09/27/24 16:16 Results Reviewed Results Reviewed: Date of Service: 08/25/24 Procedure(s): US renal BI Accession Number(s): [id number] cc: Murtaza Beckman MD; Hue Frost MD~ CLINICAL HISTORY: N20.1 - Calculus of ureter US renal with Color Doppler Comparison: US/SR - US RENAL BI - 12/18/21 11:59 EDT Findings: Right kidney normal size and echotexture, 10.0 cm length. No hydronephrosis. Normal color flow. Nonobstructing caliceal stones as follows: Lower pole measuring 2 x 2 x 4 mm previously measuring 6 x 5 x 4 mm, midpole measuring 4 x 3 x 3 mm previously measuring 7 x 5 x 5 mm and midpole measuring 3 x 3 x 2 mm previously measuring 8 x 5 x 10 mm 3 mm renal cortical cyst lower pole. Left kidney normal size and echotexture, 10.0 cm length. No hydronephrosis. Normal color flow. Nonobstructing caliceal stones as follows: Lower pole measuring 4 x 3 x 2 mm previously measuring 10 x 10 x 11 mm, midpole measuring 4 x 3 x 3 mm previously measuring 4 x 4 x 6 mm and upper pole measuring 3 x 4 x 4 mm previously measuring 5 x 4 x 5 mm. Impression: 1. Bilateral nephrolithiasis. No hydronephrosis. Incidental renal cortical cyst on the right Date of Service: 12/18/21 EXAMINATION: US RETROPERITONEAL LIMITED (RENAL ONLY) CLINICAL INFORMATION: Microscopic hematuria. COMPARISON: CT abdomen pelvis 08/15/2020. Ultrasound renals only 11/07/2015. Ultrasound abdomen 02/22/2012. TECHNIQUE: Real-time imaging of the kidneys.? FINDINGS: RIGHT KIDNEY: 11.3 x 4.6 x 5 cm (SAG x AP x TRV). The kidney is normal in size, contour, and echogenicity. Renal cortical thickness is normal. There are multiple right renal stones. Largest stones measure 8 mm in the upper pole, 6 mm in the midpole and 5 mm in the lower pole. There is a 7 mm cyst in the lower pole. No hydronephrosis. LEFT KIDNEY: 10.3 x 4.9 x 4.6 cm (SAG x AP x TRV). The kidney is normal in size, contour, and echogenicity. Renal cortical thickness is normal. There are multiple left renal stones. Largest measure 5 mm in the upper pole and midpole and 4 mm in the lower pole. There are 2 left renal cysts measuring approximately 1 cm. No hydronephrosis. IMPRESSION: Multiple bilateral renal stones. Date of Service: 08/15/20 EXAMINATION: CT ABDOMEN AND PELVIS WITHOUT CONTRAST? CLINICAL INFORMATION: Right flank pain? COMPARISON: 03/01/2012? TECHNIQUE: Multidetector volumetric imaging was performed from the superior aspect of the liver through the pubic symphysis. Sagittal and coronal reformatted images were obtained on the technologist's workstation.? This CT examination was performed using dose optimization techniques as appropriate, variously including the following: *Automated exposure control *Adjustment of mA and/or kV according to patient size (this includes techniques or standardized protocols for targeted exams where dose is matched to indication/reason for exam; i.e. extremities or head) *Use of iterative reconstruction technique DLP: 429 mGy-cm FINDINGS: LUNG BASES: The visualized lung bases are unremarkable.? LIVER, GALLBLADDER, AND BILIARY TREE: The liver is normal in size, shape, and attenuation. No focal hepatic lesion or biliary ductal dilatation is present. Cholecystectomy.? PANCREAS: Unremarkable.? SPLEEN: Unremarkable.? ADRENAL GLANDS: Unremarkable.? KIDNEYS AND URETERS: The kidneys are normal in size, shape, and attenuation. There is mild right hydroureteronephrosis. 0.4 cm calculus at the right ureterovesicular junction. Nonobstructing bilateral renal calculi are also present. On the right at least 10 calculi are seen. The largest measures 0.7 cm at the lower pole of the right kidney, 13 cm from the posterior axillary line. BLADDER: Unremarkable.? GASTROINTESTINAL TRACT: The stomach is unremarkable. Normal caliber small bowel. No obstruction. Colonic diverticulosis noted without diverticulitis. No free air or free fluid.? ABDOMINAL WALL: No significant hernia is appreciated.? LYMPH NODES: Normal. VASCULAR: Normal caliber aorta with moderate atherosclerotic calcification. PELVIC VISCERA: Uterus is not seen. No adnexal mass. OSSEOUS STRUCTURES: No acute or suspicious osseous abnormality. Degenerative changes of the spine. DISH. L1 vertebral body height loss appears chronic.? IMPRESSION: Mild right hydroureteronephrosis with a 0.4 cm calculus at the ureterovesicular junction.? Assessment & Plan Assessment & Plan Orders: Orders AMB Urinalysis Automated Today Z13.9 - Encounter for screening, unspecified Coding CPT Codes Post Residual Void - PVR CPT Code: 99861-Nwyp Void Residual by ultrasound ([id number])
== END 2024-09-27 14:34 | disposition home or self-care (01) ==
LOC: HO.HUSH 13:40
PROVIDERS: PCP Internal Medicine; Visit Provider Urology
DX: Z13.9 Encounter for screening, unspecified (principal)

== ENCOUNTER → 2024-09-27 13:39 | Outpatient (BNVA) | payer MEDICARE, SELFPAY | PROVIDERS: PCP Internal Medicine; Visit Provider Urology | DX: N20.0 Calculus of kidney (principal); F17.210 Nicotine dependence, cigarettes, uncomplicated | CPT/HCPCS: 51798; 81003; 99212 ==

== ENCOUNTER 2025-01-08 06:30 | Outpatient (REF) | payer MEDICARE, SELFPAY ==
[2025-01-15 18:13] LABS: NTXCreaRU 37 mg/dL (20-275)
== END 2025-01-08 06:31 | disposition home or self-care (01) ==
LOC: HO.HMGCLNP 06:30
PROVIDERS: PCP Internal Medicine; Visit Provider Internal Medicine Endocrinology, Diabetes & Metabolism
DX: M81.0 Age-related osteoporosis without current pathological fracture (principal)
CPT/HCPCS: 82523

== ENCOUNTER 2025-01-16 12:30 | Outpatient (AMB) | payer MEDICARE, SELFPAY ==
[2025-01-16 12:57] VITALS: BP 134/76; PULSE 67; O2SAT 95; BMI 25.3
--- NOTE | 2025-01-16 12:57 | A.OFFVIS_ITS ---
Vital Signs 01/16/25 12:57 Height 5 ft 3.58 in Weight 145 lb 11.609 oz BMI 25.3 BP 134/76 Blood Pressure Location Lt brachial Position Sitting Pulse 67 Pulse Source Pulse Oximeter Pulse Oximetry (%) 95 Oxygen Delivery Method Room Air Intake Visit Reasons: f/u osteoporosis Intake Note: Patient present today for Osteoporosis follow up visit. Renal Medicine Physician Required: No Accompanied by: Self / Same As Patient Allergies No Known Allergies (No Known Allergies*) Allergy (Verified 01/16/25 12:58) Medication List - Last Reconciled 01/16/25 by Marco Jiménez MD atorvastatin 10 mg PO DAILY calcium citrate 500 mg (2 x 250 mg calcium) PO BID 90 days cholecalciferol (vitamin D3) 25 mcg PO DAILY metoprolol tartrate 12.5 mg (1/2 x 25 mg) PO BID vit C,O-Ee-yrizs-lutein-zeaxan 250-90-40-1 mg (PreserVision AREDS-2) 1 tab PO BID HPI Comments Details: 79 yo female , for osteoporosis His feeling well, she has no complaints. She denies frequent falls She has been taking calcium citrate 600 mg 2 tablets once a day. She is on vitamin-D 1000 international units daily. She has been adherent with alendronate 70 mg once a week. Her method of administration is correct. On alendronate for 2 yr She reports her balance is okay. She quit smoking on April 2019 She was managed for osteoporosis by Dr Kiana Ward. She was on Prolia she got 3 doses, her prior technical buyer decided that was not needed any more. No prior fractures, no GERD, negative FH of fractures or osteoporosis, no nephrolithiasis, no steroids used, + smoker, no anti seizures medications, no SSRI. She has negative History of head or neck irradiation. Bisphosphonates use: never Calcium intake: calcium 1200 mg bid. Vitamin D:1000 IU daily Herbal medications. none. 04/02/2020 DEXA AP SPINE L2-L3 (excluding L1 and L4): The data of L1-L4 has been changed to exclude the L1 and L4 vertebral bodies, because degenerative change at these levels may cause overestimation of lumbar spine density. Current: BMD 0.938 g/cm2, Z-score -0.5, T-score -2.2, osteopenia, 2.3% increase from previous, 9.3% increase from baseline (<5% change is not significant). Prior: BMD 0.917 g/cm2. Baseline: BMD 0.858 g/cm2. LEFT FEMUR, NECK: Current: BMD 0.784 g/cm2, Z-score 0.1, T-score -1.8, osteopenia. Prior: BMD 0.758 g/cm2. Baseline: BMD 0.675 g/cm2. LEFT FEMUR, TOTAL: Current: BMD 0.854 g/cm2, Z-score 0.5, T-score -1.2, osteopenia, 0.9% increase from previous, 9.3% increase from baseline (<5% change is not significant). Prior: BMD 0.846 g/cm2. Baseline: BMD 0.781 g/cm2. LEFT FOREARM RADIUS 33%: BMD 0.535 g/cm2, Z-score -1.5, T-score -3.9, osteoporosis. Laboratory Tests FINDINGS: 2021 AP SPINE L1-L4: Current: BMD 1.115 g/cm2, Z-score 1.2, T-score -0.5, normal, 8.6% increase from previous, 23.3% increase from baseline (<5% change is not significant). Prior: BMD 1.027 g/cm2. Baseline: BMD 0.904 g/cm2. LEFT FEMUR, NECK: Current: BMD 0.660 g/cm2, Z-score -0.7, T-score -2.7, osteoporosis. Prior: BMD 0.784 g/cm2. Baseline: BMD 0.675 g/cm2. LEFT FEMUR, TOTAL: Current: BMD 0.717 g/cm2, Z-score -0.5, T-score -2.3, osteopenia, 16.0% decrease from previous, 8.2% decrease from baseline (<5% change is not significant). Prior: BMD 0.854 g/cm2. Baseline: BMD 0.781 g/cm2. LEFT FOREARM RADIUS 33%: BMD 0.512 g/cm2, Z-score -1.6, T-score -4.2, osteoporosis, 4.3% decrease from baseline (<5% change is not significant). 10/26/19 01/17/20 05/27/20 11:53 08:13 07:30 Creatinine 1.12 Est GFR (Non-Af Amer) 47 Calcium Albumin N-Telopeptide X-linked 11 25-OH Vitamin D Total PTH Intact 26 05/27/20 09:05 Creatinine Est GFR (Non-Af Amer) Calcium 10.2 Albumin 4.6 N-Telopeptide X-linked 25-OH Vitamin D Total 51.3 PTH Intact Currently on alendronate for 2 1/2 yrs Taking calcium and vitamin D. Urine NTX still suppressed at 53. 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 Essential hypertension Aneurysm of aortic arch Vitamin D deficiency Osteoporosis Surgical History Hx of cystoscopy (06/24/24) History of aortic aneurysm repair History of AAA (abdominal aortic aneurysm) repair Hx of colonoscopy Hx of hysterectomy History of surgery Hx of cholecystectomy History of appendectomy Family History Father HTN (hypertension) Mother HTN (hypertension) Social History Household Members: None Housing: Apartment Housing Other:: senior housing Are you a primary nurse behavioral health care to a significant other at home: No Do you presently have visiting nurse or other home services: No Alcohol intake: unknown Patient Tobacco Use Status: Current everyday Tobacco user Tobacco use type: Cigarette Cigarettes Per Day: 10 Years Smoked: 50 e-Cigarette/Vaping Use: Never Used Advance Directives Date on File: 02/08/23 service: No Current occupational status: retired Cognitive needs: No Hearing needs: No Vision needs: Yes Physical Exam Vital Signs: Last Vital Signs Pulse 67 01/16/25 12:57 BP 134/76 01/16/25 12:57 Pulse Ox 95 01/16/25 12:57 Oxygen Delivery Method Room Air 01/16/25 12:57 BMI result Body Mass Index 25.3 Assessment & Plan Assessment & Plan (1) Osteoporosis: Code(s): M81.0 - Age-related osteoporosis without current pathological fracture Category: Medical Qualifiers: Osteoporosis type: age-related Presence of current pathological fracture: without current pathological fracture Qualified Code(s): M81.0 - Age- related osteoporosis without current pathological fracture Plan: This 79-year-old white female with a history of osteoporosis withcomplete secondary workup was being treated with alendronate 70 mg Q weekly. DEXA has been stable. urine NTX still in premenopausal range. Bone density has been stable with isolated osteoporosis of the wrist Plan is to continue with the alendronate. Would probably continue the alendronate for a total of about 5 years. We will recheck urine NTX at 1 year's time prior to follow up visit Orders: Orders Collagen Crosslinks NTX 1 Year M81.0 - Age-related osteoporosis without current pathological fracture Medications: New alendronate 70 mg PO QWEEK 5 tabs 6RF Coding Level of Care Code Est Pt Level 3 (92903) Diagnoses Age-related osteoporosis without current pathological fracture M81.0 Osteoporosis type: age-related Presence of current pathological fracture: without current pathological fracture
== END 2025-01-16 13:12 | disposition home or self-care (01) ==
LOC: HO.ENCR 12:31
PROVIDERS: PCP Internal Medicine; Visit Provider Internal Medicine Endocrinology, Diabetes & Metabolism
DX: M81.0 Age-related osteoporosis without current pathological fracture (principal)
CPT/HCPCS: 99213

== ENCOUNTER → 2025-01-16 12:30 | Outpatient (BNVA) | payer MEDICARE, SELFPAY | PROVIDERS: PCP Internal Medicine; Visit Provider Internal Medicine Endocrinology, Diabetes & Metabolism | DX: M81.0 Age-related osteoporosis without current pathological fracture (principal) | CPT/HCPCS: 99212 ==

== ENCOUNTER 2025-02-19 11:15 | Outpatient (REF) | payer MEDICARE, SELFPAY ==
--- NOTE | ~2025-02-19 | US_ITS ---
CLINICAL HISTORY: N20.0 - Calculus of kidney US renal Comparison: 08/25/2024 Findings: Right kidney 9.6 cm length. Multiple nonobstructing renal stones. Left kidney 10.2 cm length. Multiple nonobstructing renal stones. No bilateral hydronephrosis. Normal bilateral renal echogenicity. Impression: Multiple bilateral nonobstructing stones This document has been electronically signed by: Stephen Rankin MD on 02/19/2025 22:23:22
== END 2025-02-19 11:16 | disposition home or self-care (01) ==
LOC: HO.HMGCX 11:15
PROVIDERS: PCP Internal Medicine; Visit Provider Urology
DX: N20.0 Calculus of kidney (principal)
CPT/HCPCS: 76775

== ENCOUNTER → 2025-02-19 11:25 | Outpatient (BNV) | payer MEDICARE, SELFPAY | PROVIDERS: PCP Internal Medicine; Visit Provider Radiology Diagnostic Radiology | DX: N20.0 Calculus of kidney (principal) | CPT/HCPCS: 76775 ==

== ENCOUNTER 2025-02-27 07:30 | Outpatient (REF) | payer MEDICARE, SELFPAY ==
--- OUTSIDE RECORDS SUMMARY | 2025-02-27 07:33 | XMS_ITS | Data Portability ---
Author Organization [place] - [facility], Allergy Address [address] [address] Care Team Providers Care Foot Caster Name Role Phone JOHANAJalen NURYS Primary Care Provider Assessment Encounter Date Assessment [...] Recorded Time Impacted cerumen of bilateral ears [id number] Active 2020 Impacted cerumen, bilateral ; Note: Date Diagnosed : 09/13/2020 12:15 PM (H61.23) Not Available [facility] 4 02:52:12 Problem Notes None recorded. Procedures Surgical History Date Name Laterality Status Provider Name and Address Organization Details Recorded Time 5 Cerumen removal without microscope bilat completed ANGÉLICA DOSHI PA-C [address] [place] [address],[address], [address], [place] - [facility] 09/19/2024 11:38:35 4 Cerumen removal without microscope bilat completed Lucila Ma [place] - [facility] 03/20/2024 13:23:32 Imaging Results None recorded. [...] 70 mg tablet active Medicatio n ID: [id number] Br and Name: alendrona te Send Method: [...] mg chewable tablet active Medicatio n ID: [id number] Br and Name: Aspirin Childrens Send Method: [...] mg-90 mg capsule active Medicatio n ID: [id number] Br and Name: PreserVis ion AREDS Sen d Method: E-Prescri bed Subs Allowed: subs [place] Medica tionGener icName: PreserVis ion AREDS Not Available Not Available Not Available Vitals Date Recorded Body height Body mass index (BMI) Body weight Provider Name and Address Organization Details Last Updated DateTime 09/19/2024 160.02 cm 24.8 kg/m2 92422.93 g Basia James [place] - [facility] 09/19/2024 11:21:46 Date Recorded Body height Body mass index (BMI) Body weight Provider Name and Address Organization Details Last Updated DateTime 03/20/2024 160.02 cm 26.6 kg/m2 23918.86 g Blaise Robins [facility] 03/20/2024 13:09:00 Social History None recorded. Functional Status None recorded. Mental Status None recorded. Family History Nothing Reported. Medical History No medical history recorded. Gynecological HistoryNo gynecological history recorded. Obstetrics History GPAL:G 0 P 0 0 0 0 Past Encounters Encounter ID Performer Location Encounter Start Date Encounter Closed Date Diagnosis/Indication Diagnosis SNOMED-CT Code Diagnosis ICD10 Code Diagnosis IMO Codes Diagnosis Note [id number] LUCILA MA PA-C [facility] [address] [address] 03/20/2024 12:45:18 03/20/2024 13:25:57 Impacted cerumen of bilateral ears [id number] H61.23 [id number] ANGÉLICA DOSHI PA-C [facility] [address] [place] [address] 09/19/2024 11:16:57 09/19/2024 12:09:19 Impacted cerumen of bilateral ears [id number] H61.23 Health Concerns Section Related Observation LastModified by Organization Detai ls LastModified Time None Recorded Concern Status LastModified by Organization Details LastModified Time None Recorded Advance Directives Directive None Recorded Payers Insurance Date Sequence Insurance Name Policy Number Policy Mendes Covered Member ID Mendes Member ID Guarantor Name 09/19/[address] [facility] [id number] Radha Crews [id number] Radha Crews Notes Date Note Type Note Provider Name and Address Organization Details Recorded Time 03/20/2024 text/html ROS as noted in the [facility] [employer] [facility] 79 year old female presents for evaluation of ears. Thinks she has a cerumen impaction, feels full. There has been no change in baseline hearing, no otorrha, and no otalgia. GURINDER MENG MD [address] [place] [address], [phone], [facility] 03/20/2024 21:06:37 09/19/2024 text/html ROS as noted in the HPI 79yo female presents for cerumen debridement. Reports no change in hearing. Denies ear pain, drainage, tinnitus, or Qtip use. GADIEL CHOI MD [address] [place] [address], [phone], [facility] - [facility] 09/19/2024 15:32:26 OBGyn Episode No OBEpisode recorded.
[2025-02-27 11:22] LABS: Alanine Aminotransferase 24 U/L (0-31); Anion Gap 12 (12-20); Aspartate Amino Transferase 25 U/L (5-31); Blood Urea Nitrogen 27 mg/dL (9-16); Calcium 9.4 mg/dL (8.4-10.2); Carbon Dioxide 30 mmol/L (22-29); Chloride 104 mmol/L (96-108); Cholesterol 183 mg/dL (<200); Estimated Glomerular Filt Rate 42; HDL Cholesterol 41 mg/dL (>40); Potassium 3.8 mmol/L (3.3-5.1); Sodium 142 mmol/L (135-145); Triglycerides 275 mg/dL (<150)
== END 2025-02-27 07:31 | disposition home or self-care (01) ==
LOC: HO.HMGCLDS 07:30
PROVIDERS: PCP Internal Medicine; Visit Provider Internal Medicine
DX: I10 Essential (primary) hypertension (principal); E78.1 Pure hyperglyceridemia; E55.9 Vitamin D deficiency, unspecified; M81.0 Age-related osteoporosis without current pathological fracture
CPT/HCPCS: 36415; 80048; 80061; 82306; 84450; 84460

== ENCOUNTER 2025-03-07 10:30 | Outpatient (AMB) | payer MEDICARE, SELFPAY ==
--- NOTE | 2025-03-07 10:40 | A.OFFVIS_ITS ---
Intake Vital Signs 03/07/25 10:46 Height 5 ft 3 in Weight 146 lb BMI 25.9 BP 132/70 Blood Pressure Location Lt brachial Position Sitting Respiration 16 Pulse 64 Pulse Source Pulse Oximeter Temp 97.4 F Temp Source Oral Pulse Oximetry (%) 95 Oxygen Delivery Method Room Air Intake Visit Reasons: MAXX G0439- see comments Intake Note: Pt is here today for her SWV: last mammogram 05/26/24, bone density scan 05/26/24, colonoscopy 10/12/18 Property Disposal Officer Required: No Allergies No Known Allergies (No Known Allergies*) Allergy (Verified 03/07/25 10:59) HPI MAXX G0439- see comments HPI Details 80 year-old lady with dyslipidemia, hype rtension, history of adenomatous colon polyp, osteoporosis, history of recurrent kidney stones, and 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 She is up-to-date with her screening mammogram and osteoporosis screening done 05/26/2024 . Has an appointment to see Dr. Jiménez next year for her osteoporosis follow-up. Her last colonoscopy screening was done in [address] Acosta, a referral was placed last year to have a repeat colonoscopy screening but no appointment was made, another referral was ordered today she is up-to-date with her lipids screening and diabetes screening, done earlier this year which call came back with normal findings except for elevated triglycerides which patient blames on her fondness for eating potato chips. She is up-to-date with all her vaccinations. She already has a healthcare proxy and MOLST plan completed.. ? Medical / Social History Reviewed? Past Medical History ?Yes . ? [place] of Care / Care Team list updated ?Yes . ? Surgical/Hospitalization History ?Yes . ? Current Medications (including OTC and supplements) ?Yes . ? Family History ?Yes . ? Tobacco Control form ?Yes . ? AUDIT-C (Alcohol use) form ?Yes . ? Illicit drug use in Social History ?Yes . ? Current diagnosis of depression? ?No ? Appropriate PHQ2/PHQ9 completed ?Yes . ? Data entered by ?[employer] Floor Person and reviewed by provider ? Fall Risk ? Fall History? Have you had any falls with injury in the past year? ?No . ? Have you had two or more falls in the past year? ?No . ? Fall Risk Assessment: ?No falls in the past year . ? HRA filled out by the patient, reviewed by Provider and scanned. ?SWV ? Balance? Romberg ?negative. ? Tandem walk ?Yes . ? Walk and Turn ?Yes . ? Rise from sit to stand ?Yes . ?Vision? Corrective lens ?Yes ? Vision screen ? Up-to-date, she sees Dr. 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 Whisper test ?pass . ?Written Plan?Completed. See Patient Documents.? 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 Essential hypertension Aneurysm of aortic arch Vitamin D deficiency Osteoporosis Surgical History Hx of cystoscopy (06/24/24) History of aortic aneurysm repair History of AAA (abdominal aortic aneurysm) repair Hx of colonoscopy Hx of hysterectomy History of surgery Hx of cholecystectomy History of appendectomy Family History Father HTN (hypertension) Mother HTN (hypertension) Social History Household Members: None Housing: Apartment Housing Other:: senior housing Are you a primary career professional to a significant other at home: No Do you presently have visiting nurse or other home services: No Alcohol intake: unknown Patient Tobacco Use Status: Current everyday Tobacco user Tobacco use type: Cigarette Cigarettes Per Day: 10 Years Smoked: 50 e-Cigarette/Vaping Use: Never Used Advance Directives Date on File: 02/08/23 service: No Current occupational status: retired Cognitive needs: No Hearing needs: No Vision needs: Yes Questionnaire Medicare Wellness Checkup What is your age?: 79 or older What gender do you identify with?: female During the past 4 weeks, how much have you been bothered by emotional problems such as feeling anxious, depressed, irritable, sad or downhearted, and blue?: not at all During the past 4 weeks, has your physical & emotional health limited your social activities with family, friends, neighbors, or groups?: not at all During the past 4 weeks, how much bodily pain have you generally had?: very mild pain During the past 4 weeks, was someone available to help you if you needed & wanted help?: yes, as much as I wanted During the past 4 weeks, what was the hardest physical activity you could do for at least 2 minutes?: heavy Can you get to places out of walking distance without help? (For eg., can you travel alone on buses, taxis or drive your car?): Yes Can you go shopping for groceries or clothes without someone's help?: Yes Can you prepare your own meals?: Yes Can you do your housework without help?: Yes Because of any health problems, do you need the help of another person with your personal care needs such as eating, bathing, dressing or getting around the house?: No Can you handle your own money without help?: Yes During the past 4 weeks, how would you rate your health in general?: very good During the past 4 weeks how have things been going for you?: very well; could hardly better Are you having difficulties driving your car?: no Do you always fasten your seat belt when you are in a car?: yes, usually During past 4 weeks, have you been bothered by the following: never: Falling or dizzy when standing up, Sexual problems?, Trouble eating well?, Teeth or denture problems?, Problems using the telephone? and Tiredness or fatigue? Have you fallen 2 or more times in the past year?: No Are you afraid of falling?: No Are you a smoker?: yes, but I'm not ready to quit During the past 4 weeks, how many drinks of wine, beer, or other alcoholic beverages did you have?: no alcohol at all Do you exercise for about 20 minutes 3 or more times a week?: no, I usually do not exercise this much Have you been given information to help with the following?: no: Hazards in your house that might hurt you? and no: Keeping track of your medications? How often do you have trouble taking medicines the way you have been told to take them?: I always take medicine as prescribed How confident are you that you can control & manage most of your health problems?: very confident What is your race?: White Mini Mental State Exam (MMSE) Orientation What is the (year) (season) (date) (day) (month)?: year (2024), season (Fall), date (03/07/25), day (Wednesday) and month (Nov) Where are we (state) (county) (town or city) (hospital) (floor)?: state ([facility]), county ([place]), town or city ([place]) and [place] [place] Score Score: 9 Activity of Daily Living Bathing - sponge bath, tub bath or shower: receives no assistance (gets in/out by self, if usual bathing means Dressing - getting clothes from closets & drawers, including inner/outer garments & fasteners.: gets clothes & gets completely dressed without help Toileting - going to the 'toilet room' for urine/bowel elimination & cleaning self/arranging clothes: goes to toilet room, cleans self, arranges clothes without help Transfer: moves in & out of bed and chair without help (may use support object) Continence: has occasional 'accidents' Feeding: feeds self without help Total Score: 0 Information obtained from: patient Using telephone: independent Traveling: independent Shopping: independent Preparing meals: independent Housework: independent Taking medicine: independent Managing money: independent PHQ-9 Over the last 2 weeks, how often have you been bothered by any of the following problems? 1. Little interest or pleasure in doing things: not at all 2. Feeling down, depressed, or hopeless: not at all 3. Trouble falling or staying asleep, or sleeping too much: not at all 4. Feeling tired or having little energy: not at all 5. Poor appetite or overeating: not at all 6. Feeling bad about yourself - or that you are a failure or have let yourself or your family down: not at all 7. Trouble concentrating on things, such as reading the newspaper or watching television: not at all 8. Moving or speaking so slowly that other people could have noticed. Or the opposite - being so fidgety or restless that you have been moving around a lot more than usual: not at all 9. Thoughts that you would be better off or of hurting yourself in some way: not at all Total score: 0 Depression Screening Interpretation: Negative Depression Screening Done: Yes 23554 - PHQ-9 Billing: Yes Source: Developed by Drs. Marco Rain, Fabiana Ortega, Uziel Light and colleagues, with an educational taty from [employer]. Physical Exam Vital Signs: Last Vital Signs Temp 97.4 F 03/07/25 10:46 Pulse 64 03/07/25 10:46 Resp 16 03/07/25 10:46 BP 132/70 03/07/25 10:46 Pulse Ox 95 03/07/25 10:46 Oxygen Delivery Method Room Air 03/07/25 10:46 BMI result Body Mass Index 25.9 Results Reviewed Results Reviewed: Name: Radha Crews Age/Sex: 79/F : 1945 Unit#: [id number] Attend Dr: Hue Frost MD Re02/27/25 Status: DEP [facility] Disch: SPEC : [id number] EVELYNE: 02/27/25 STATUS: COMP REQ : [id number] RECD: 02/27/[address]: Hue Frost MD COMP: 02/27/25 ENTERED: 02/27/[address]: ORDERED: Met Prof Fast, AST, ALT, Lipid Panel, Vitamin D 25-OH Test Result Flag Reference Sodium 142 135-145 mmol/L Potassium 3.8 3.3-5.1 mmol/L CL 104 96-108 mmol/L CO2 30 H 22-29 mmol/L Gap 12 12-20 BUN 27 H 9-16 mg/dL Creat 1.22 0.5-1.4 mg/dL eGFR 42 Chronic Kidney Disease: Estimated GFR < 60 mL/min/1.73m2 Severe Kidney Disease: Estimated GFR < 15 mL/min/1.73m2 FBS 86 60-99 mg/dL CA 9.4 8.4-10.2 mg/dL AST (GOT) 25 5-31 U/L ALT (GPT) 24 0-31 U/L Triglyceride 275 H <150 mg/dL Desirable Triglyceride: less than 150 mg/dL Borderline High Triglyceride 150-199 mg/dL High Triglyceride: 200-499 mg/dL Very High Triglyceride: greater than or equal to 5OO mg/dL Cholesterol 183 <200 mg/dL Desirable Cholesterol: less than 200 mg/dL Borderline High Cholesterol: 200-239 mg/dL High Cholesterol: greater than 239 mg/dL LDL Calculated 87 <100 mg/dL Desirable LDL: less than 100 mg/dL Near Optimal/Above Optimal LDL: 110-129 mg/dL Borderline High LDL: 130-159 mg/dL High LDL: 160-189 mg/dL Very High LDL: greater than or equal to 190 mg/dL HDL 41 >40 mg/dL Desirable HDL: greater than 40 mg/dL Note: This HDL assay may give artificially low results in patients with liver disease. Vitamin D 25-OH 62.1 >30 ng/mL Health Based Reference Values* < 20 ng/mL Deficient 20-30 ng/mL Insufficient > 30 ng/mL Sufficient *Cora BERMUDEZ. N Engl J Med. 2007;[id number]:266-280 Assessment & Plan Assessment & Plan (1) Encounter for subsequent annual wellness visit in Medicare patient: Code(s): Z00.00 - Encounter for general adult medical examination without abnormal findings Plan: Medical wellness checklist reviewed, discussed with patient and updated. Copy of visit given. Up-to-date with all her vaccines and screening, will refer back to GI for her repeat colonoscopy screening due to history of tubular adenoma removed on last colonoscopy in [address] Acosta (2) Osteoporosis: Code(s): M81.0 - Age-related osteoporosis without current pathological fracture Qualifiers: Osteoporosis type: age-related Presence of current pathological fracture: without current pathological fracture Qualified Code(s): M81.0 - Age- related osteoporosis without current pathological fracture Plan: Currently on alendronate, calcium and vitamin-D 3 supplement, followed by Dr. Jiménez (3) Essential hypertension: Code(s): I10 - Essential (primary) hypertension Plan: Blood pressure at goal of less than 130/80. Continue with metoprolol tartrate 12.5 mg twice a day. Reinforced importance of following a low sodium diet, getting regular exercise, and lowering stress levels. (4) Hypertriglyceridemia: Code(s): E78.1 - Pure hyperglyceridemia Plan: Latest fasting lipids showed elevated triglycerides but LDL cholesterol and HDL and total cholesterol are within normal limits. Continued on atorvastatin 10 mg daily and adherence to healthy eating habits and regular exercise, cut back on eating lot of junk food Orders: Orders Alanine Aminotransferase 07/28/25 E78.1 - Pure hyperglyceridemia, I10 - Essential (primary) hypertension Aspartate Amino Transferase 07/28/25 E78.1 - Pure hyperglyceridemia, I10 - Essential (primary) hypertension, Z00.00 - Encounter for general adult medical examination without abnormal findings Lipid Panel 07/28/25 E78.1 - Pure hyperglyceridemia, I10 - Essential (primary) hypertension, Z00.00 - Encounter for general adult medical examination without abnormal findings Basic Metabolic Panel Fasting 07/28/25 E78.1 - Pure hyperglyceridemia, I10 - Essential (primary) hypertension, Z00.00 - Encounter for general adult medical examination without abnormal findings Referrals Gastroenterology Referral Z86.010 - Personal history of colon polyps Quality Reporting (2019) Depression/Bipolar (159/160/161/177) PHQ-9: Total score: 0 Coding Level of Care Code Medicare Subsequent (G0439) Diagnoses Encounter for subsequent annual wellness visit in Medicare patient Z00.00 Age-related osteoporosis without current pathological fracture M81.0 Osteoporosis type: age-related Presence of current pathological fracture: without current pathological fracture Essential hypertension I10 Hypertriglyceridemia E78.1 CPT Codes Advance Care Planning - Advance Care Planning discussion: On file, no changes ([id number]) Advance Care Planning - Time spent: 1-15 minutes, on File ([id number]) Additional Codes PHQ-9 - 89631 - PHQ-9 Billing: Yes ([id number]) Advance Care Planning Advance Care Planning discussion: On file, no changes Date of discussion: 03/07/25 Who was present: Patient Forms completed: Health Care Proxy and MOLST Time spent: 1-15 minutes, on File Actual minutes spent: 1
[2025-03-07 10:46] VITALS: BP 132/70; PULSE 64; RESP 16; TEMP 36.3; O2SAT 95; BMI 25.9
--- OUTSIDE RECORDS SUMMARY | 2025-03-07 12:35 | XMS_ITS | Data Portability ---
Author Organization [place] - [facility], Allergy Address [address] [address] Care Team Providers Care [place] Man Name Role Phone JOHANAJalen NURYS Primary Care [...] Recorded Time Impacted cerumen of bilateral ears [id number] Active 2020 Impacted cerumen, bilateral ; Note: Date Diagnosed : 09/13/2020 12:15 PM (H61.23) Not Available [facility] 4 02:52:12 Problem Notes None recorded. Procedures Surgical History Date Name Laterality Status Provider Name and Address Organization Details Recorded Time 5 Cerumen removal without microscope bilat completed ANGÉLICA DOSHI PA-C [address] [place] [address],[address], [address], [place] - [facility] 09/19/2024 11:38:35 4 Cerumen removal without microscope bilat completed Lucila Ma [place] - [facility] 03/20/2024 13:23:32 Imaging Results None recorded. [...] 70 mg tablet active Medicatio n ID: [id number] Br and Name: alendrona te Send Method: [...] mg chewable tablet active Medicatio n ID: [id number] Br and Name: Aspirin Childrens Send Method: [...] mg-90 mg capsule active Medicatio n ID: [id number] Br and Name: PreserVis ion AREDS Sen d Method: E-Prescri bed Subs Allowed: subs OK Medica tionGener icName: PreserVis ion AREDS Not Available Not Available Not Available Vitals Date Recorded Body height Body mass index (BMI) Body weight Provider Name and Address Organization Details Last Updated DateTime 09/19/2024 160.02 cm 24.8 kg/m2 65752.93 g Basia James [place] - [facility] 09/19/2024 11:21:46 Date Recorded Body height Body mass index (BMI) Body weight Provider Name and Address Organization Details Last Updated DateTime 03/20/2024 160.02 cm 26.6 kg/m2 80328.86 g Blaise Robins [facility] 03/20/2024 13:09:00 Social History None recorded. Functional Status None recorded. Mental Status None recorded. Family History Nothing Reported. Medical History No medical history recorded. Gynecological HistoryNo gynecological history recorded. Obstetrics History GPAL:G 0 P 0 0 0 0 Past Encounters Encounter ID Performer Location Encounter Start Date Encounter Closed Date Diagnosis/Indication Diagnosis SNOMED-CT Code Diagnosis ICD10 Code Diagnosis IMO Codes Diagnosis Note [id number] LUCILA MA PA-C [facility] [address] [address] 03/20/2024 12:45:18 03/20/2024 13:25:57 Impacted cerumen of bilateral ears 5541210633 345382 H61.23 [id number] ANGÉLICA DOSHI PA-C [facility] [address] [place] [address] 09/19/2024 11:16:57 09/19/2024 12:09:19 Impacted cerumen of bilateral ears [id number] H61.23 Health Concerns Section Related Observation LastModified by Organization Detai ls LastModified Time None Recorded Concern Status LastModified by Organization Details LastModified Time None Recorded Advance Directives Directive None Recorded Payers Insurance Date Sequence Insurance Name Policy Number Policy Mendes Covered Member ID Mendes Member ID Guarantor Name 09/19/2024 1 [facility] [id number] 04 Radha Crews [id number] Radha Crews Notes Date Note Type Note Provider Name and Address Organization Details Recorded Time 03/20/2024 text/html ROS as noted in the [facility] 79 year old female presents for evaluation of ears. Thinks she has a cerumen impaction, feels full. There has been no change in baseline hearing, no otorrha, and no otalgia. GURINDER MENG MD [address] [place] [address], [phone], [facility] 03/20/2024 21:06:37 09/19/2024 text/html ROS as noted in the HPI 79yo female presents for cerumen debridement. Reports no change in hearing. Denies ear pain, drainage, tinnitus, or Qtip use. GADIEL CHOI MD [address] [place] [address], [phone], [facility] - [facility] 09/19/2024 15:32:26 OBGyn Episode No OBEpisode recorded.
== END 2025-03-07 11:20 | disposition home or self-care (01) ==
LOC: HO.HMCC 10:31
PROVIDERS: PCP Internal Medicine; Visit Provider Internal Medicine
DX: Z00.00 Encounter for general adult medical examination without abnormal findings (principal); M81.0 Age-related osteoporosis without current pathological fracture; I10 Essential (primary) hypertension; E78.1 Pure hyperglyceridemia

== ENCOUNTER → 2025-03-07 10:30 | Outpatient (BNVA) | payer MEDICARE, SELFPAY | PROVIDERS: PCP Internal Medicine; Visit Provider Internal Medicine | DX: Z00.00 Encounter for general adult medical examination without abnormal findings (principal); M81.0 Age-related osteoporosis without current pathological fracture; I10 Essential (primary) hypertension; E78.1 Pure hyperglyceridemia; Z86.0100 Personal history of colon polyps, unspecified | CPT/HCPCS: 96127 ==

== ENCOUNTER 2025-04-05 11:18 | Outpatient (AMB) | payer MEDICARE, SELFPAY ==
--- NOTE | 2025-04-05 11:48 | A.OFFVIS_ITS ---
Intake Visit Reasons: 6m/US (set(UA) Intake Note: Patient is present for 6m follow up with US * 02/19 Renal US Urology Medication:NONE Antibiotic Allergy:NONE Blood Thinner:NONE [employer] Required: No Allergies No Known Allergies (No Known Allergies*) Allergy (Verified 04/05/25 11:49) Medication List - Last Reconciled 04/05/25 by Crissy Rose MD alendronate 70 mg PO QWEEK atorvastatin 10 mg PO DAILY calcium citrate 500 mg (2 x 250 mg calcium) PO BID 90 days cholecalciferol (vitamin D3) 25 mcg PO DAILY metoprolol tartrate 12.5 mg (1/2 x 25 mg) PO BID vit C,U-Kp-vlnbp-lutein-zeaxan 250-90-40-1 mg (PreserVision AREDS-2) 1 tab PO B ID HPI Comments Details: 04/05/2025 history of nephrolithiasis here for follow-up renal ultrasound 02/19/2025 [facility] Medical History (Updated 03/07/25 @ 11:45 by Hue Frost MD) History of adenomatous polyp of colon Adenomatous colon polyp Smoker unmotivated to quit Recurrent kidney stones Microscopic hematuria Hypertriglyceridemia Encounter for monitoring alendronate therapy Rupture of ovary Pneumothorax, left Right rib fracture Sigmoid diverticulitis 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 Essential hypertension Aneurysm of aortic arch Vitamin D deficiency Osteoporosis Surgical History Hx of cystoscopy (06/24/24) History of aortic aneurysm repair History of AAA (abdominal aortic aneurysm) repair Hx of colonoscopy Hx of hysterectomy History of surgery Hx of cholecystectomy History of appendectomy Family History Father HTN (hypertension) Mother HTN (hypertension) Social History Household Members: None Housing: Apartment Housing Other:: senior housing Are you a primary acute care physical therapist to a significant other at home: No Do you presently have visiting nurse or other home services: No Alcohol intake: unknown Patient Tobacco Use Status: Current everyday Tobacco user Tobacco use type: Cigarette Cigarettes Per Day: 10 Years Smoked: 50 e-Cigarette/Vaping Use: Never Used Advance Directives Date on File: 02/08/23 service: No Current occupational status: retired Cognitive needs: No Hearing needs: No Vision needs: Yes Results AMB Urinalysis, Automated UA Leukoctes 500 Snehal/uL Last Edit by MILAD Maxwell on 04/05/25 11:58 UA Nitrite Negative Last Edit by MILAD Maxwell on 04/05/25 11:58 UA Urobilinogen 0.2 mg/dL Last Edit by MILAD Maxwell on 04/05/25 11:5 8 UA Protein 15 mg/dL Last Edit by Carla Waterman CCM on 04/05/25 11:58 UA pH 6.0 Last Edit by Carla Waterman [facility] on 04/05/25 11:58 UA Blood 25 [place]/uL Last Edit by Carla Waterman CCM on 04/05/25 11:58 UA Specific [place] 1.015 Last Edit by MILAD Maxwell on 04/05/25 11: 58 UA Ketone Negative Last Edit by Carla Waterman [facility] on 04/05/25 11:58 UA Bilirubin 0 mg/dL Last Edit by Carla Waterman [facility] on 04/05/25 11:58 UA Glucose 0 mg/dL Last Edit by Carla Waterman [facility] on 04/05/25 11:58 Results Reviewed Results Reviewed: Laboratory Last Values Urine pH (Auto) 6.0 04/05/25 11:57 Specific [place] (Auto) 1.015 04/05/25 11:57 Urine Protein (Auto) 15 mg/dL 04/05/25 11:57 Glucose (UA)(Auto) 0 mg/dL 04/05/25 11:57 Urine Ketones (Auto) Negative 04/05/25 11:57 Urine Blood (Auto) 25 [place]/uL 04/05/25 11:57 Urine Nitrite (Auto) Negative 04/05/25 11:57 Urine Bilirubin (Auto) 0 mg/dL 04/05/25 11:57 Urine Urobilinogen (Auto) 0.2 mg/dL 04/05/25 11:57 Leukocyte Esterase (Auto) 500 Snehal/uL 04/05/25 11:57 Date of Service: 02/19/25 Procedure(s): US renal BI Accession Number(s): [id number] cc: Crissy Rose MD; Hue Frost MD~ Reason for Exam: N20.0 - Calculus of kidney CLINICAL HISTORY: N20.0 - Calculus of kidney US renal Comparison: 08/25/2024 Findings: Right kidney 9.6 cm length. Multiple nonobstructing renal stones. Left kidney 10.2 cm length. Multiple nonobstructing renal stones. No bilateral hydronephrosis. Normal bilateral renal echogenicity. Impression: Multiple bilateral nonobstructing stones Date of Service: 08/25/24 US renal with Color Doppler Comparison: US/SR - US RENAL BI - 12/18/21 11:59 EDT Findings: Right kidney normal size and echotexture, 10.0 cm length. No hydronephrosis. Normal color flow. Nonobstructing caliceal stones as follows: Lower pole measuring 2 x 2 x 4 mm previously measuring 6 x 5 x 4 mm, midpole measuring 4 x 3 x 3 mm previously measuring 7 x 5 x 5 mm and midpole measuring 3 x 3 x 2 mm previously measuring 8 x 5 x 10 mm 3 mm renal cortical cyst lower pole. Left kidney normal size and echotexture, 10.0 cm length. No hydronephrosis. Normal color flow. Nonobstructing caliceal stones as follows: Lower pole measuring 4 x 3 x 2 mm previously measuring 10 x 10 x 11 mm, midpole measuring 4 x 3 x 3 mm previously measuring 4 x 4 x 6 mm and upper pole measuring 3 x 4 x 4 mm previously measuring 5 x 4 x 5 mm. Impression: 1. Bilateral nephrolithiasis. No hydronephrosis. Incidental renal cortical cyst on the right Date of Service: 12/18/21 EXAMINATION: US RETROPERITONEAL LIMITED (RENAL ONLY) CLINICAL INFORMATION: Microscopic hematuria. COMPARISON: CT abdomen pelvis 08/15/2020. Ultrasound renals only 11/07/2015. Ultrasound abdomen 02/22/2012. TECHNIQUE: Real-time imaging of the kidneys.? FINDINGS: RIGHT KIDNEY: 11.3 x 4.6 x 5 cm (SAG x AP x TRV). The kidney is normal in size, contour, and echogenicity. Renal cortical thickness is normal. There are multiple right renal stones. Largest stones measure 8 mm in the upper pole, 6 mm in the midpole and 5 mm in the lower pole. There is a 7 mm cyst in the lower pole. No hydronephrosis. LEFT KIDNEY: 10.3 x 4.9 x 4.6 cm (SAG x AP x TRV). The kidney is normal in size, contour, and echogenicity. Renal cortical thickness is normal. There are multiple left renal stones. Largest measure 5 mm in the upper pole and midpole and 4 mm in the lower pole. There are 2 left renal cysts measuring approximately 1 cm. No hydronephrosis. IMPRESSION: Multiple bilateral renal stones. Date of Service: 08/15/20 EXAMINATION: CT ABDOMEN AND PELVIS WITHOUT CONTRAST? CLINICAL INFORMATION: Right flank pain? COMPARISON: 03/01/2012? TECHNIQUE: Multidetector volumetric imaging was performed from the superior aspect of the liver through the pubic symphysis. Sagittal and coronal reformatted images were obtained on the technologist's workstation.? This CT examination was performed using dose optimization techniques as appropriate, variously including the following: *Automated exposure control *Adjustment of mA and/or kV according to patient size (this includes techniques or standardized protocols for targeted exams where dose is matched to indication/reason for exam; i.e. extremities or head) *Use of iterative reconstruction technique DLP: 429 mGy-cm FINDINGS: LUNG BASES: The visualized lung bases are unremarkable.? LIVER, GALLBLADDER, AND BILIARY TREE: The liver is normal in size, shape, and attenuation. No focal hepatic lesion or biliary ductal dilatation is present. Cholecystectomy.? PANCREAS: Unremarkable.? SPLEEN: Unremarkable.? ADRENAL GLANDS: Unremarkable.? KIDNEYS AND URETERS: The kidneys are normal in size, shape, and attenuation. There is mild right hydroureteronephrosis. 0.4 cm calculus at the right ureterovesicular junction. Nonobstructing bilateral renal calculi are also present. On the right at least 10 calculi are seen. The largest measures 0.7 cm at the lower pole of the right kidney, 13 cm from the posterior axillary line. BLADDER: Unremarkable.? GASTROINTESTINAL TRACT: The stomach is unremarkable. Normal caliber small bowel. No obstruction. Colonic diverticulosis noted without diverticulitis. No free air or free fluid.? ABDOMINAL WALL: No significant hernia is appreciated.? LYMPH NODES: Normal. VASCULAR: Normal caliber aorta with moderate atherosclerotic calcification. PELVIC VISCERA: Uterus is not seen. No adnexal mass. OSSEOUS STRUCTURES: No acute or suspicious osseous abnormality. Degenerative changes of the spine. DISH. L1 vertebral body height loss appears chronic.? IMPRESSION: Mild right hydroureteronephrosis with a 0.4 cm calculus at the ureterovesicular junction.? Assessment & Plan Assessment & Plan Orders: Orders Urine Cytology Today N20.0 - Calculus of kidney AMB Urinalysis Automated Today Z13.9 - Encounter for screening, unspecified Urine Culture Today N20.0 - Calculus of kidney Coding
== END 2025-04-05 12:24 | disposition home or self-care (01) ==
LOC: HO.HUSH 11:19
PROVIDERS: PCP Internal Medicine; Visit Provider Urology
DX: Z13.9 Encounter for screening, unspecified (principal)

== ENCOUNTER 2025-04-05 11:18 | Outpatient (REF) | payer MEDICARE, SELFPAY | END 2025-04-05 11:19 | disposition home or self-care (01) | LOC: HO.LAB 11:18 | PROVIDERS: PCP Internal Medicine; Visit Provider Urology | DX: N20.0 Calculus of kidney (principal); Z13.89 Encounter for screening for other disorder | CPT/HCPCS: 81003; 87086; 87088; 87186; 88112 ==